=== PATIENT | female | born 1965 | race Caucasian/White ===

== ENCOUNTER → 2016-08-22 | Outpatient (CLI) | payer MEDICARE, OTHER | LOC: MMGSC 12:26 | PROVIDERS: ATTEND Family Medicine | DX: N39.0 Urinary tract infection, site not specified (principal) | CPT/HCPCS: 87086; 99213 ==

== ENCOUNTER → 2016-09-09 | Outpatient (CLI) | payer MEDICARE, OTHER ==
[2016-09-09 20:50] LABS: Basophils # (A) 0.1 k/uL (0-0.2); Basophils % (A) 1 %; CHCM 32.7; Eosinophils # (A) 0.2 k/uL (0-0.7); Eosinophils % (A) 2 %; HCT 44.7 % (34.0-46.0); HDW 2.41; HGB 14.9 gm/dL (11.4-16.0); Luc % (Auto) 2; Lymphocytes % (A) 25 %; MCH 32.9 pg (25.0-35.0); MCHC 33.4 g/dL (31.0-37.0); MCV 98.4 fL (80.0-100.0); Mean Platelet Volume 7.6; Monocytes # (A) 0.4 k/uL (0-1.0); Monocytes % (A) 4 %; Neutrophils # (A) 7.8 k/uL (1.3-7.7); Neutrophils % (A) 67 %; RBC 4.55 m/uL (3.80-5.40); RDW 13.6 % (11.5-15.5); WBC 11.6 k/uL (3.8-10.6)
[2016-09-09 21:48] LABS: ALT 20 U/L (9-52); AST 18 U/L (14-36); Alkaline Phosphatase 73 U/L (38-126); Anion Gap 11 mmol/L; Blood Urea Nitrogen 7 mg/dL (7-17); Calcium 9.9 mg/dL (8.4-10.2); Carbon Dioxide 25 mmol/L (22-30); Chloride 106 mmol/L (98-107); Cholesterol 223 mg/dL (<200); Glucose 96 mg/dL (74-99); HDL Cholesterol 95 mg/dL (40-60); Non-African American GFR(MDRD) >60 (>60 ml/min/1.73 sqM); Potassium 4.4 mmol/L (3.5-5.1); Sodium 142 mmol/L (137-145); Total Bilirubin 0.4 mg/dL (0.2-1.3); Triglycerides 169 mg/dL (<150)
== END ==
LOC: MMGSC 09:51
PROVIDERS: ATTEND Family Medicine
DX: E55.9 Vitamin D deficiency, unspecified (principal); R53.83 Other fatigue; E78.00 Pure hypercholesterolemia, unspecified
CPT/HCPCS: 36415; 80053; 80061; 82306; 84439; 84443; 85025

== ENCOUNTER → 2016-09-11 | Outpatient (CLI) | payer MEDICARE, OTHER | LOC: MMGSC 10:20 | PROVIDERS: ATTEND Family Medicine | DX: R23.8 Other skin changes (principal) | CPT/HCPCS: 87070; 87205 ==

== ENCOUNTER → 2016-11-11 | Outpatient (CLI) | payer MEDICARE, OTHER ==
[2016-11-11 19:41] LABS: Basophils # (A) 0.1 k/uL (0-0.2); Basophils % (A) 1 %; CH 33.2; Eosinophils # (A) 0.2 k/uL (0-0.7); Eosinophils % (A) 2 %; HCT 45.6 % (34.0-46.0); HDW 2.39; HGB 14.5 gm/dL (11.4-16.0); Luc # (Auto) 0.27; Luc % (Auto) 3; Lymphocytes % (A) 29 %; MCH 32.3 pg (25.0-35.0); MCHC 31.9 g/dL (31.0-37.0); MCV 101.2 fL (80.0-100.0); Macrocytosis Slight; Mean Platelet Volume 7.6; Monocytes # (A) 0.5 k/uL (0-1.0); Monocytes % (A) 5 %; Neutrophils # (A) 6.3 k/uL (1.3-7.7); Neutrophils % (A) 61 %; RBC 4.51 m/uL (3.80-5.40); RDW 14.3 % (11.5-15.5); WBC 10.3 k/uL (3.8-10.6); WBC (Perox) 10.58
[2016-11-11 20:13] LABS: ALT 29 U/L (9-52); AST 19 U/L (14-36); Alkaline Phosphatase 85 U/L (38-126); Anion Gap 10 mmol/L; Blood Urea Nitrogen 7 mg/dL (7-17); Calcium 9.3 mg/dL (8.4-10.2); Carbon Dioxide 25 mmol/L (22-30); Chloride 106 mmol/L (98-107); Glucose 105 mg/dL (74-99); Non-African American GFR(MDRD) >60 (>60 ml/min/1.73 sqM); Potassium 4.2 mmol/L (3.5-5.1); Sodium 141 mmol/L (137-145); Total Bilirubin 0.2 mg/dL (0.2-1.3); Total Protein 6.3 g/dL (6.3-8.2)
[2016-11-11 20:58] LABS: Vitamin B12 617 pg/mL (239-931)
== END ==
LOC: MMGSC 15:28
PROVIDERS: ATTEND Family Medicine
DX: E55.9 Vitamin D deficiency, unspecified (principal); R53.83 Other fatigue; T14.8 Other injury of unspecified body region
CPT/HCPCS: 36415; 80053; 82306; 82607; 85025

== ENCOUNTER → 2016-11-18 | Outpatient (CLI) | payer MEDICARE, OTHER ==
--- NOTE | 2016-11-18 19:42 | CONS ---
DATE OF SERVICE: 11/18/2016 PRIMARY CARE PHYSICIAN: Dr. Rodriguez REASON FOR CONSULTATION: Fatigue and sleepiness. [id number] female patient coming in due to concerns about poor sleep quality and possible obstructive sleep apnea, as this has been suspected by her primary care physician. The patient recently has been snoring, and she has been told by her daughter that she stops breathing. She has excessive fatigue and sleepiness. She occasionally grinds her teeth and has some restlessness in the lower extremities. She has multiple other medical problems and comorbidities, most significant of which is chronic pain involving the neck and the back. She is on a combination of medications for chronic pain, including narcotics, and medication for treatment of depression. She goes to bed around 11:00. She wakes up at 6:00 in the morning. She sleeps a good 7 to 8 hours but feels like she has slept only 3 to 4 hours. She has no problems falling asleep. She feels tired and fatigued and sleepy throughout the day. No history of motor vehicle accident because of feeling drowsy of sleepy. She has a history of alcoholism, and she is a recovering alcoholic. She quit drinking in 2015. She has no nocturnal heartburn. She has chronic pain, which could be potentially affecting her sleep quality. This involves pain in the neck and the back. She has recovered from hepatitis C. No history of any liver cirrhosis. No history of hypothyroidism. PAST MEDICAL HISTORY: 1. Lumbar spinal stenosis. 2. Chronic back pain. 3. Degenerative arthritis. 4. Chronic neck pain. 5. COPD. 6. Acid reflux. 7. History of alcoholism. 8. Hepatitis C. 9. History of depression/anxiety. Past surgical history includes: 1. Carpal tunnel release bilaterally. 2. Tonsillectomy. 3. Left arm surgery. 4. Hysterectomy. SOCIAL HISTORY: The patient is a smoker, one pack of cigarettes a day. She is an ex-alcoholic; clean since October 2015. No history of IV drugs. FAMILY HISTORY: Negative for sleep breathing disorder. REVIEW OF SYSTEMS: Twelve-point review of systems was done. Positive findings were all mentioned above in the history of present illness. BP is 115/76, pulse 79, respiration 16, temperature 98.1, saturation 96% on room air. Weight is 121.6. Height is 62 inches. [place] Score is 11. BMI is 22.1. Neck size is 13-1/2 inches. GENERAL APPEARANCE: Calm, comfortable. HEENT: Negative for JVD. No goiter or neck masses. LUNGS: Clear to auscultation. Heart sounds are regular rate and rhythm. Normal S1, S2. No S3, S4. No murmurs. ABDOMEN: Soft and non-tender. No organomegaly. EXTREMITIES: No edema. No cyanosis or clubbing at this point. IMPRESSION: 1. Chronic fatigue and sleepiness. Patient has a multitude of reasons to be sleepy and fatigued. She may have some underlying metabolic derangement. The possibility of chronic liver disease secondary to previous hepatitis C, possibilities of drug-induced fatigue and sleepiness, knowing that she is on a combination of medications that could affect the symptoms. Possibility of chronic fatigue related to depression. Other sleep disorders need to be ruled out as contributing factors. My overall suspicion for sleep apnea is low. 2. Spinal stenosis with chronic back pain. 3. Degenerative arthritis. 4. Neck pain. 5. Chronic obstructive pulmonary disease. 6. Acid reflux. 7. Alcoholism. 8. Hepatitic C, treated. 9. History of depression. PLAN: Will proceed with a screening polysomnogram. Will analyze this patient's sleep characteristics, quality. Will see if there is any sleep fragmentation or any form of sleep breathing disorder that would warrant any further treatment. Further recommendations are to follow, based on the results of the sleep study. LEI
== END | disposition home or self-care (01) ==
LOC: SLEEP 13:49
PROVIDERS: ATTEND Internal Medicine Critical Care Medicine
DX: R53.82 Chronic fatigue, unspecified (principal); M48.00 Spinal stenosis, site unspecified; M54.2 Cervicalgia; J44.9 Chronic obstructive pulmonary disease, unspecified; K21.9 Gastro-esophageal reflux disease without esophagitis; F10.20 Alcohol dependence, uncomplicated; M19.90 Unspecified osteoarthritis, unspecified site
CPT/HCPCS: 99211

== ENCOUNTER → 2017-01-06 | Outpatient (CLI) | payer MEDICARE, OTHER ==
--- NOTE | 2017-01-06 19:18 | PN ---
PROGRESS NOTE This is a 51-year-old female patient, who presented to me with chronic fatigue and sleepiness. As mentioned earlier the patient is on a higher dose of narcotics for chronic pain and she has multiple other medical problems, including depression, chronic liver disease secondary to hepatitis C that was effectively treated, degenerative arthritis, spinal stenosis, COPD and acid reflux. I performed a sleep study on this patient looking for any significant sleep breathing disorder. The patient had a full polysomnogram on 12/11/2016, and the patient was found to have a mild component of sleep apnea which was a combination of obstructive and central. The central components was probably related to narcotic intake. The patient's sleep efficiency was normal at 92%. No oxygen desaturations. Normal sleep architecture. No periodic limb movements were noted. I discussed the results with the patient at length today. She seems to be averaging about 6 hours of sleep a night and I think her sleepiness will improve as long as the patient may extend her sleep hours. Her depression is effectively treated with a combination of antidepressants. She is following up with Dr. Mars. No sleep paralysis. No hallucinations. No cataplexy. No significant periodic limb movements or any other complaints otherwise for now. PHYSICAL EXAMINATION: BP is 122/74, pulse 80, respirations 16, weight is 128, height is 5 feet 2 inches and saturation 98% on room air. GENERAL APPEARANCE: Calm comfortable. HEENT: Dentures. No goiter or neck masses. LUNGS: Clear to auscultation. HEART: Sounds regular rhythm. Normal S1, S2. No S3, S4. No murmurs. ABDOMEN: Soft, nontender. No organomegaly. EXTREMITIES: No edema. No cyanosis or clubbing. NEURO: Alert and oriented x3. No focal neurological deficits. PSYCH: Negative for acute depression for now. No significant anxiety. SKIN: Negative for any ulcers, wounds or cellulitis. SKELETAL: Exam is negative for any arthritis or joint deformities. IMPRESSION: 1. Chronic fatigue/sleepiness without evidence of any significant sleep breathing disorder. Sleep architecture was essentially within normal limits and there was no significant nocturnal oxygen desaturation. No restless legs syndrome noted. 2. Chronic depression under treatment. 3. Chronic pain. 4. Chronic narcotic intake for pain control. 5. History of substance abuse/cocaine. 6. History of alcoholism. 7. History of hepatitis C with chronic liver disease, currently hepatitis C is effectively treated. 8. Degenerative arthritis. 9. Acid reflux. 10.Chronic obstructive pulmonary disease. PLAN: 1. Discussed the findings with the patient. 2. No need for CPAP therapy. 3. Implement good sleep hygiene measures. 4. Increase the sleep hours an average of 7 half to 8 hours of sleep every night. 5. Follow up with Psychiatry and consider the addition of Provigil for symptom control in regards to her chronic hypersomnia. Suggest Provigil if this does not interact with her depression treatment. For that reason, the patient will be seeing Dr. Fitzpatrick and discussed this further. No need for CPAP therapy at this point. MMODL / IJN: [id number] /
== END | disposition home or self-care (01) ==
LOC: SLEEP 15:01
PROVIDERS: ATTEND Internal Medicine Critical Care Medicine
DX: R53.82 Chronic fatigue, unspecified (principal); F32.9 Major depressive disorder, single episode, unspecified; M19.90 Unspecified osteoarthritis, unspecified site; K21.9 Gastro-esophageal reflux disease without esophagitis; J44.9 Chronic obstructive pulmonary disease, unspecified; Z79.891 Long term (current) use of opiate analgesic

== ENCOUNTER → 2017-05-21 | Outpatient (CLI) | payer MEDICARE, OTHER ==
[2017-05-21 18:56] LABS: ALT 6 U/L (9-52); AST 19 U/L (14-36); Alkaline Phosphatase 81 U/L (38-126); Anion Gap 12 mmol/L; Blood Urea Nitrogen 11 mg/dL (7-17); Calcium 9.7 mg/dL (8.4-10.2); Carbon Dioxide 23 mmol/L (22-30); Chloride 103 mmol/L (98-107); Cholesterol 293 mg/dL (<200); Glucose 100 mg/dL (74-99); HDL Cholesterol 76 mg/dL (40-60); LDL Cholesterol,Calculated 194 mg/dL (0-99); Potassium 4.1 mmol/L (3.5-5.1); Sodium 138 mmol/L (137-145); Total Bilirubin 0.3 mg/dL (0.2-1.3); Triglycerides 116 mg/dL (<150)
== END | disposition home or self-care (01) ==
LOC: MMGSC 11:16
PROVIDERS: ATTEND Family Medicine
DX: Z00.00 Encounter for general adult medical examination without abnormal findings (principal); R53.83 Other fatigue; Z86.39 Personal history of other endocrine, nutritional and metabolic disease
CPT/HCPCS: 36415; 80053; 80061; 82306

== ENCOUNTER → 2017-06-09 | Outpatient (CLI) | payer MEDICARE, OTHER ==
[2017-06-09 19:33] LABS: Basophils # (A) 0.1 k/uL (0-0.2); Basophils % (A) 1 %; Eosinophils # (A) 0.1 k/uL (0-0.7); Eosinophils % (A) 1 %; HCT 39.3 % (34.0-46.0); HGB 12.9 gm/dL (11.4-16.0); Lymphocytes # (A) 1.9 k/uL (1.0-4.8); Lymphocytes % (A) 19 %; MCH 31.6 pg (25.0-35.0); MCHC 32.8 g/dL (31.0-37.0); MCV 96.4 fL (80.0-100.0); Mean Platelet Volume 7.8; Monocytes # (A) 0.5 k/uL (0-1.0); Monocytes % (A) 5 %; Neutrophils # (A) 7.2 k/uL (1.3-7.7); Neutrophils % (A) 73 %; Platelet Count 329 k/uL (150-450); RBC 4.08 m/uL (3.80-5.40); RDW 13.4 % (11.5-15.5); WBC 9.9 k/uL (3.8-10.6)
== END | disposition home or self-care (01) ==
LOC: MMGSC 15:50
PROVIDERS: ATTEND Family Medicine
DX: T14.8XXA Other injury of unspecified body region, initial encounter (principal)
CPT/HCPCS: 36415; 85025

== ENCOUNTER → 2018-11-30 | Outpatient (CLI) | payer MEDICARE, OTHER ==
--- NOTE | 2018-11-30 11:19 | US ---
EXAMINATION TYPE: US abdomen complete DATE OF EXAM: 11/30/2018 COMPARISON: NONE CLINICAL HISTORY: Abd Pain R10.9. Vomiting and diarrhea for 8 days, symptoms gone now, h/o polyp EXAM MEASUREMENTS: Liver Length: 15.9 cm Gallbladder Wall: 0.2 cm CBD: 0.6 cm Spleen: 8.8 cm Right Kidney: 8.9 x 4.2 x 4.7 cm Left Kidney: 10.5 x 4.4 x 6.0 cm Pancreas: wnl Liver: wnl Gallbladder: 0.3cm polyp seen on posterior wall Evidence for sonographic Baez's sign: no CBD: wnl Spleen: limited views due to bowel gas, rolled patient RLD for images Right Kidney: appears smaller in size but bowel gas was obscuring lower pole Left Kidney: wnl Upper IVC: wnl Abd Aorta: wnl The liver is homogenous. The intrahepatic portion of the IVC and proximal abdominal aorta are within normal limits. There is no evidence of cholelithiasis. Common bile duct is unremarkable. The visu alized portions of the pancreas are homogenous. The spleen is unremarkable. Kidneys are symmetric a nd free of hydronephrosis. No renal lesions are seen. IMPRESSION: 1. There is a 0.3 cm gallbladder polyp. No sonographic findings of acute cholecystitis. 2. Limited visualization of the spleen and right kidney due to overlying bowel gas.
== END | disposition home or self-care (01) ==
LOC: RADUSWWP 10:33
PROVIDERS: ATTEND Family Medicine
DX: K82.4 Cholesterolosis of gallbladder (principal); R14.3 Flatulence
CPT/HCPCS: 76700

== ENCOUNTER → 2019-05-03 | Outpatient (CLI) | payer MEDICARE, OTHER ==
--- NOTE | 2019-05-03 16:22 | US ---
EXAMINATION TYPE: US kidneys/renal and bladder DATE OF EXAM: 05/03/2019 COMPARISON: NONE CLINICAL HISTORY: R32 Urinary Incontinence. urinary incontinence, back pain EXAM MEASUREMENTS: Right Kidney: 9.5 x 4.3 x 3.9 cm Left Kidney: 11.0 x 5.8 x 4.4 cm Post Void Residual Volume: 16.3 mL Right Kidney: minimally dilated collecting system Left Kidney: no evidence of hydronephrosis Bladder: wnl Bilateral Jets seen: yes Normal Post Void Residual: yes No nephrolithiasis is seen. No masses are identified. The urinary bladder is anechoic. Bilateral u reteral jets are seen. IMPRESSION: Mild right-sided hydronephrosis. No left-sided hydronephrosis. No bilateral renal calculi .
== END | disposition home or self-care (01) ==
LOC: RADUSWWP 15:42
PROVIDERS: ATTEND Family Medicine
DX: N13.30 Unspecified hydronephrosis (principal)
CPT/HCPCS: 76770

== ENCOUNTER → 2019-05-17 | Outpatient (CLI) | payer MEDICARE, OTHER ==
--- NOTE | 2019-05-17 10:40 | CT ---
EXAMINATION TYPE: CT abdomen pelvis wo con DATE OF EXAM: 05/17/2019 COMPARISON: Ultrasound dated 05/03/2019 HISTORY: incontinence, UTI, abn US CT DLP: 283.3 mGycm Automated exposure control for dose reduction was used. TECHNIQUE: Helical acquisition of images was performed from the lung bases through the pelvis. FINDINGS: Lack of intravenous and oral contrast limit evaluation of both the hollow and solid viscera . LUNG BASES: No significant abnormality is appreciated. LIVER/GB: Unremarkable unenhanced morphology. No radiopaque calculi in the gallbladder. PANCREAS: No ductal dilatation or calcifications. No peripancreatic fat stranding. SPLEEN: No splenomegaly. ADRENALS: No nodularity or thickening. KIDNEYS: 3 mild right-sided hydronephrosis remains as there is blunting of the calyces, particularly in the upper pole such as on image 41. However no hydroureter is seen nor radiopaque distal obstructi ng calculus. No urinary bladder calculus is identified. No left-sided hydronephrosis. No nephrolithia sis of either kidney. FREE AIR: No free air is visualized ADENOPATHY: No right and 1 cm short axis lymph node in the abdomen or pelvis given limitation of lac k of intravenous contrast. OSSEOUS STRUCTURES: Schmorl's node is seen in the superior endplate of T12. Mild degenerative disc d isease at L5-S1. Vacuum disc phenomenon is seen. BOWEL: Appendix is retrocecal and within normal limits of size. No dilated large or small bowel. Mil d degree colonic fecal stasis. OTHER: Mild atherosclerosis of the abdominal aorta and its branches more moderate of the distal abdom inal aorta. IMPRESSION: 1. VERY MILD RIGHT-SIDED HYDRONEPHROSIS WITHOUT RADIOPAQUE DISTAL OBSTRUCTING CALCULUS. CONSIDERATION S ARE FOR RECENTLY PASSED CALCULUS, NONRADIOPAQUE OBSTRUCTING CALCULUS, LESS LIKELY UROEPITHELIAL LES ION, OR INCOMPLETE URETERAL STRICTURE. 2. NO RADIOPAQUE CALCULI OF EITHER KIDNEY. NO RADIO OPAQUE CALCULI IN THE URINARY BLADDER.
--- NOTE | 2019-05-18 10:38 | MM ---
Reason for exam: screening (asymptomatic). Last mammogram was performed 1 year and 8 months ago. History: Patient is postmenopausal. Took estrogen for 20 years. Physical Findings: A clinical breast exam by your physician is recommended on an annual basis and results should be correlated with mammographic findings. MG 3D Screening Mammo W/Cad Bilateral CC and MLO view(s) were taken. Prior study comparison: September 02, 2017, mammogram, performed at [facility]. June 26, 2016, mammogram, performed at [facility]. The breast tissue is heterogeneously dense. This may lower the sensitivity of mammography. Stable benign appearing bilateral calcifications. No suspicious abnormality. ASSESSMENT: Benign, BI-RAD 2 RECOMMENDATION: Routine screening mammogram of both breasts in 1 year. Manage on a clinical basis with regard to left nipple tenderness.
== END | disposition home or self-care (01) ==
LOC: RADCTMAIN 08:16
PROVIDERS: ATTEND Family Medicine
DX: Z12.31 Encounter for screening mammogram for malignant neoplasm of breast (principal); N13.30 Unspecified hydronephrosis
CPT/HCPCS: 74176; 77063; 77067

== ENCOUNTER → 2019-08-24 | Outpatient (CLI) | payer MEDICARE, OTHER ==
--- NOTE | 2019-08-24 15:23 | XR ---
EXAMINATION TYPE: XR chest 2V, XR ribs bilateral DATE OF EXAM: 08/24/2019 COMPARISON: NONE HISTORY: Shortness of breath and chest with bilateral rib pain. TECHNIQUE: Frontal and lateral views of the chest are obtained. A frontal and oblique images of the bilateral ribs. FINDINGS: There is no focal air space opacity, pleural effusion, or pneumothorax seen. The cardiac silhouette size is within normal limits. The osseous structures are intact. Dedicated images of bilateral ribs show no acute displaced fracture. Overlying soft tissue is unremar kable. IMPRESSION: 1. No acute cardiopulmonary process. 2. No acute displaced rib fractures are evident bilaterally.
== END | disposition home or self-care (01) ==
LOC: RADXRMAIN 14:43
PROVIDERS: ATTEND Family Medicine
DX: R06.02 Shortness of breath (principal); R07.81 Pleurodynia
CPT/HCPCS: 71046; 71110

== ENCOUNTER → 2019-09-07 | Outpatient (CLI) | payer MEDICARE, OTHER ==
--- NOTE | 2019-09-07 10:27 | MR ---
EXAMINATION TYPE: MR lumbar spine wo con DATE OF EXAM: 09/07/2019 COMPARISON: NONE HISTORY: Lower Back Pain into Sciatic, Down back of Thighs and Pain in bottom of Left Foot. TECHNIQUE: T1 and T2 axial and sagittal images of the lumbar spine are submitted. FINDINGS: There is no abnormal signal seen within the visualized spinal cord or paraspinal soft tissu es. Multilevel Schmorl's nodes are noted. At L1-2 there is no disc herniation or canal stenosis. No foraminal encroachment. At L2-3 there is no disc herniation or canal stenosis. No foraminal encroachment. At L3-4 there is no disc herniation or canal stenosis. No foraminal encroachment. At L4-5 there is degenerative disc disease with broad-based central and left paracentral disc herniat ion. Extending laterally with mild left foraminal encroachment. There is displacement of the thecal s ac. Facet arthropathy. At L5-S1 there is advanced degenerative disc disease with broad-based central disc herniation resulti ng in mild mass effect upon the thecal sac. There is encroachment upon the exiting nerve roots. Facet arthropathy and bilateral mild neural foraminal encroachment noted. Discogenic marrow changes seen. IMPRESSION: 1. Broad-based central, left paracentral disc herniation extending laterally to left with effacement of thecal sac at L4-L5 in left-sided mild foraminal encroachment. 2. Broad-based central disc herniation L5-S1 with mild mass effect upon the thecal sac and encroachme nt upon the exiting nerve roots. 3. Multilevel degenerative disc disease.
== END | disposition home or self-care (01) ==
LOC: RADMRIMAIN 09:25
PROVIDERS: ATTEND Nurse Practitioner Adult Health
DX: M51.26 Other intervertebral disc displacement, lumbar region (principal); M51.36 Other intervertebral disc degeneration, lumbar region
CPT/HCPCS: 72148

== ENCOUNTER → 2019-09-07 | Outpatient (CLI) | payer MEDICARE, OTHER ==
[2019-09-07 20:43] LABS: Urine Alcohol Negative (Negative); Urine Barbiturate Negative (Negative); Urine Cocaine Negative (Negative); Urine Methadone Negative (Negative); Urine Opiates Positive (Negative); Urine Phencyclidine Negative (Negative)
== END | disposition home or self-care (01) ==
LOC: LABWHC1 10:24
PROVIDERS: ATTEND Physician Assistant
DX: R05 Cough (principal); Z79.891 Long term (current) use of opiate analgesic
CPT/HCPCS: 36415; 80306; 86769

== ENCOUNTER → 2019-10-04 | Outpatient (CLI) | payer MEDICARE, OTHER | END | disposition home or self-care (01) | LOC: RADUSWWP 15:46 | PROVIDERS: ATTEND Urology | DX: Z53.9 Procedure and treatment not carried out, unspecified reason (principal) ==

== ENCOUNTER 2019-12-25 16:58 | Emergency (ER) | payer MEDICARE, OTHER ==
[2019-12-25 17:10] VITALS: BP 142/78; PULSE 84; RESP 16; TEMP 98.9
[2019-12-25] MEDS ORDERED: KETOROLAC 15 MG/ML 1 ML VIAL IM STA (17:30)
[2019-12-25] MEDS ORDERED: diazePAM 2 MG TAB PO STA (17:30)
--- NOTE | 2019-12-25 17:30 | ED ---
Back Pain HPI - General Chief Complaint: Back Pain/Injury Stated Complaint: Back pain Time Seen by Provider: 12/25/19 17:13 Source: patient Limitations: no limitations - History of Present Illness Initial Comments: Patient is a 54-year-old female presenting to the emergency Department with complaints of an increase in her chronic low back pain since this morning. Patient states she is already prescribed a few different medications for her chronic low back pain including [place], Mobic and a muscle relaxer. Patient states she takes these regularly. She does see a pain doctor at a neuro clinic in [place]. Patient denies any injuries or fall to trigger her pain. She denies any fever, chills, saddle paresthesias, difficulty with urination or defecation. She is requesting Toradol to help with her discomfort. She denies any urinary complaints. She is no further complaints at this time. Upon arrival to the ER, her vitals are stable. - Related Data Allergies Allergy/AdvReac Type Severity Reaction Status Date / Time cyclobenzaprine Allergy Anaphylaxis Verified 12/25/19 17:10 [From Flexeril] levofloxacin [From Levaquin] Allergy Anaphylaxis Verified 12/25/19 17:10 pregabalin [From Lyrica] Allergy Anaphylaxis Verified 12/25/19 17:10 Review of Systems ROS Statement: Those systems with pertinent positive or pertinent negative responses have been documented in the HPI. ROS Other: All systems not noted in ROS Statement are negative. Past Medical History Past Medical History: COPD Additional Past Medical History / Comment(s): chronic back pain History of Any Multi-Drug Resistant Organisms: None Reported Past Surgical History: Hysterectomy, Tonsillectomy, Tubal Ligation Additional Past Surgical History / Comment(s): carpal tunnel bilat, facial surgery, Past Psychological History: Depression, PTSD Smoking Status: Current every day smoker Past Alcohol Use History: None Reported Past Drug Use History: None Reported General Exam - General Exam Comments Initial Comments: GENERAL: Patient is well-developed and well-nourished. Patient is nontoxic and in no acute distress. HEAD: Atraumatic, normocephalic. EYES: Pupils equal round and reactive to light, extraocular movements intact, sclera anicteric, conjunctiva are normal. Eyelids were unremarkable. ENT: TMs normal, nares patent, oropharynx clear without exudates. Moist mucous membranes. NECK: Normal range of motion, supple without lymphadenopathy or JVD. LUNGS: Unlabored respirations. Breath sounds clear to auscultation bilaterally and equal. No wheezes rales or rhonchi. HEART: Regular rate and rhythm without murmurs, rubs or gallops. ABDOMEN: Soft, nontender, normoactive bowel sounds. No guarding, no rebound. No masses appreciated. : Deferred MUSCULOSKELETAL: Patient seems to have pain with palpation the entire lumbar area including bilateral lumbar paraspinals. She has normal junk range of motion, she is neurovascularly intact bilateral lower extremities. Normal extremities with adequate strength and normal range of motion, no pitting or edema. No clubbing or cyanosis. NEUROLOGICAL: Patient is alert and oriented x 3. Motor and sensory are also intact. Cranial nerves II through XII grossly intact. Symmetrical smile. Normal speech, normal gait. PSYCH: Normal mood, normal affect. SKIN: Warm, Dry, normal turgor, no rashes or lesions noted. Limitations: no limitations Course Vital Signs 12/25/19 17:06 Temperature 98.9 F Pulse Rate 84 Respiratory 16 Rate Blood Pressure 142/78 O2 Sat by Pulse 95 Oximetry Medical Decision Making - Medical Decision Making Patient is a 54-year-old female presenting for an acute flare of chronic low back pain since this morning. No falls or trauma. She has no acute neuro symptoms, no saddle paresthesia, no bowel or bladder incontinence. Patient is already in a pain contract and works with a neurologist. Discussed the patient and give her an injection of Toradol today to help with her discomfort as well as a low-dose of Valium to help relax. Patient is in agreement with this plan of care. She is stable for discharge. Patient states she'll follow-up with her neurologist next week. Return parameters were discussed the patient she verbalized understanding. Disposition Clinical Impression: Acute exacerbation of chronic low back pain Disposition: HOME SELF-CARE Condition: Stable Instructions (If sedation given, give patient instructions): Chronic Back Pain (DC) Additional Instructions: Please return to the Emergency Department if symptoms worsen or any other neri rns. Follow-up with neurologist as discussed. Recommended heat to the area, gentle stretching. Is patient prescribed a controlled substance at d/c from ED?: No Referrals: Solange Godinez MD [Primary Care Provider] - 1-2 days
== END 2019-12-25 17:55 | disposition home or self-care (01) ==
LOC: EC 16:58
DX: G89.29 Other chronic pain (principal); M54.5 Low back pain; F17.200 Nicotine dependence, unspecified, uncomplicated; Z88.1 Allergy status to other antibiotic agents; Z88.8 Allergy status to other drugs, medicaments and biological substances
CPT/HCPCS: 99283; 96372; J1885

== ENCOUNTER → 2020-01-02 | Outpatient (CLI) | payer MEDICARE, OTHER | END | disposition home or self-care (01) | LOC: LABWHC1 12:24 | PROVIDERS: ATTEND Family Medicine | DX: Z03.818 Encounter for observation for suspected exposure to other biological agents ruled out (principal) | CPT/HCPCS: U0003; C9803 ==

== ENCOUNTER → 2020-04-27 | Outpatient (CLI) | payer MEDICARE, OTHER ==
[2020-04-27 10:14] VITALS: BP 117/73; PULSE 88; RESP 18; TEMP 98.2
--- NOTE | 2020-04-27 10:48 | P.GSHP ---
History of Present Illness H&P Date: 04/27/20 Chief Complaint: bilateral nipple discharge Nivia is a 54-year-old white female seen in consultation for Dr. Valentino Rodriguez regarding bilateral nipple discharge. Her last bilateral mammogram was in May 2019 this was benign BIRADS 2. The nipple discharge for many years, it was milky in coloration. It was not spontaneous and only occurred when she had breast exams. However, it is not spontaneous and only occurs with breast examination. The color however his change from milky to green. [place] [address] which revealed hypocellular amorphous material with degenerated inflammatory cells. [place] [address] her prolactin level was 6. This is within the normal range. She has not felt any new lumps masses or nodules in her breast. She occasionally notes some shooting discomfort in her breast. It is greater on the right breast and in the left breast. It is sporadic she does not know what causes it. It lasts approximately 2 seconds. This occurs several times a week. Caffeine: Several coffees per day, several sodas per day Nicotine: Smokes 1 pack per day carl-bromine: Intermittently Family history: Mother: Lung cancer Maternal uncle: Lung cancer Maternal grandfather: Lung cancer Hormonal history: Menarche: 14 , 2 miscarriages, breast fed: no, age at first : 17 Menopause: Hysterectomy at 33, no cancer, endometriosis; took ovaries BCP: 10 years hormones: estradiol since hysterectomy Surgical history: Total hysterectomy Tubal ligation bilateral carpal tunnel left arm from fracture facial surgery/oral surgery c section tonsil cataract Medical History: COPD Hypersomnia/borderline narcolepsy Social History: nicotine: 1 /PPD alcohol: sober 4 1/2 years, was an alcoholic prior to this Drugs: Stopped using them for and a half years ago, used to use metamphetamines and cocaine - Constitutional Constitutional: Reports sweats - EENT Comment: cataract surgery bilateral Ears: deny: decreased hearing, tinnitus Ears, nose, mouth and throat: Denies headache, Denies sore throat - Breasts Breasts: bilateral: as per HPI - Cardiovascular Comment: panic attacks Cardiovascular: Denies chest pain, Denies shortness of breath - Respiratory Comment: COPD - Gastrointestinal Gastrointestinal: Denies abdominal pain, Denies diarrhea, Denies nausea, Denies vomiting - Genitourinary (Female) Comment: UTI in past Genitourinary: Reports stress incontinence, Denies dysuria, Denies hematuria - Menstruation Menstruation: Reports post hysterectomy - Musculoskeletal Comment: arthritis Musculoskeletal: Denies myalgias - Neurological Neurological: Reports numbness, Reports weakness - Psychiatric Comment: I'm personality disorder, posttraumatic stress disorder, recovering alcoholic Psychiatric: Reports anxiety, Reports depression - Endocrine Endocrine: Reports fatigue, Reports weight change - Hematologic/Lymphatic Hematologic/Lymphatic: Reports as per HPI - Allergic/Immunologic Allergic/Immunologic: Reports as per HPI Past Medical History Past Medical History: COPD Additional Past Medical History / Comment(s): chronic back pain History of Any Multi-Drug Resistant Organisms: None Reported Past Surgical History: Hysterectomy, Tonsillectomy, Tubal Ligation Additional Past Surgical History / Comment(s): carpal tunnel bilat, facial surgery, Past Psychological History: Depression, PTSD Smoking Status: Current every day smoker Past Alcohol Use History: None Reported Past Drug Use History: None Reported Medications and Allergies Home Medications Medication Instructions Recorded Confirmed Type ARIPiprazole [Abilify] 5 mg PO DAILY 04/27/20 04/27/20 History Albuterol Inhaler [Ventolin Hfa 2 puff INHALATION RT-TID 04/27/20 04/27/20 History Inhaler] Atorvastatin [Lipitor] 10 mg PO QAM 04/27/20 04/27/20 History Cholecalciferol (Vitamin D3) 125 mcg PO DAILY 04/27/20 04/27/20 History [Vitamin D3 (5000 Iu)] Escitalopram [Lexapro] 20 mg PO DAILY 04/27/20 04/27/20 History Estradiol [Estrace] 1 mg PO DAILY 04/27/20 04/27/20 History Fluticasone Nasal [place] [Flonase 2 spr EA NOSTRIL DAILY 04/27/20 04/27/20 History Nasal [place]] Fluticasone/Umeclidin/Vilanter 1 inhalation INHALATION DAILY 04/27/20 04/27/20 History [Trelegy Ellipta 100-62.5-25] Furosemide [Lasix] 20 mg PO DAILY 04/27/20 04/27/20 History HYDROcodone/APAP 10-325MG [[place] 1 tab PO Q4-6H PRN 04/27/20 04/27/20 History 10-325] Hydrocodone Bitartrate [Hysingla 40 mg PO Q24H 04/27/20 04/27/20 History ER] Meloxicam 15 mg PO DAILY 04/27/20 04/27/20 History Modafinil [Provigil] 200 mg PO BID 04/27/20 04/27/20 History Montelukast Sodium [Singulair] 10 mg PO QAM 04/27/20 04/27/20 History Pantoprazole [Protonix] 0 mg PO DAILY 04/27/20 04/27/20 History Potassium Chloride [Klor-Con 10] 10 meq PO DAILY 04/27/20 04/27/20 History Sulfamethox-Tmp 800-160Mg [Bactrim 1 tab PO Q12HR 04/27/20 04/27/20 History DS 800-160 mg] tiZANidine HCL [Zanaflex] 4 mg PO QAM 04/27/20 04/27/20 History Allergies Allergy/AdvReac Type Severity Reaction Status Date / Time cyclobenzaprine Allergy Anaphylaxis Verified 04/27/20 10:01 [From Flexeril] levofloxacin [From Levaquin] Allergy Anaphylaxis Verified 04/27/20 10:01 pregabalin [From Lyrica] Allergy Anaphylaxis Verified 04/27/20 10:01 Surgical - Exam Vital Signs Temp Pulse Resp BP Pulse Ox 98.2 F 88 18 117/73 97 04/27/20 10:10 04/27/20 10:10 04/27/20 10:10 04/27/20 10:10 04/27/20 10:10 BMI 26 - General moderate distress - Eyes normal ocular movement - ENT normal nares - Neck no masses, trachea midline - Respiratory normal expansion, normal respiratory effort, clear to auscultation - Cardiovascular Rhythm: regular Heart Sounds: normal: S1, S2 - Abdomen Abdomen: soft - Integumentary normal turgor - Musculoskeletal normal gait - Psychiatric oriented to time, oriented to person, oriented to place, speech is normal, memory intact Breast exam: BRA 34D inspection: Bilateral grade 3 ptosis Palpation: Right breast: Multi-positional exam fibrocystic changes with manipulation she does have some discharge which is guaiac negative appears to be fibrocystic in nature Right axilla: No adenopathy of concern left breast: Multi-positional exam fibrocystic changes with manipulation some discharge which is green in color and is guaiac negative Left axilla: No adenopathy of concern Results Last mammogram reviewed which was in May 2019 [place] work [place] [address] [place] [address] Assessment and Plan Assessment: Impression: 1. Chronic bilateral nipple discharge 2. Nicotine abuse, high caffeine intake, hormone use 3. COPD 4. Hypersomnia 5. Anxiety/depression 6. Posttraumatic stress disorder 7. Recovered alcoholic 8. Borderline personality disorder Plan: 1. Lifestyle modifications secondary to fibrocystic breast changes 2. Consider stopping the hormone replacement therapy 3. Bilateral mammogram with repeat examination following that 4. At this time there is nothing which would warrant interventional biopsy CC: Dr. Godinez We have discussed stopping the caffeine intake as well as the nicotine. We have also discussed possible stopping the hormones. She understands she will discuss stopping the hormones with her primary care doctor and she will attempt to do less so modifications. I will see her again after her mammogram to assure that there is nothing of concern on the mammogram. At this time I believe at discharge is most likely fibrocystic in nature and up into warning interventional biopsy. encounter 50 minutes, > 50% of time in planning and counselling
== END | disposition home or self-care (01) ==
LOC: WWCWWP 09:06
PROVIDERS: ATTEND Surgery
DX: Z53.9 Procedure and treatment not carried out, unspecified reason (principal)

== ENCOUNTER → 2020-05-21 | Outpatient (CLI) | payer MEDICARE, OTHER ==
--- NOTE | 2020-05-22 14:57 | MM ---
Reason for exam: clinical finding. Last mammogram was performed 1 year ago. History: Patient is postmenopausal. Took estrogen for 20 years. Physical Findings: Nurse did not find any significant physical abnormalities on exam. MG 3D Diag Mammo W/Cad BECKIE Bilateral CC and MLO view(s) were taken. LM, spot compression CC, and spot compression MLO view(s) were taken of the right breast. Prior study comparison: May 17, 2019, bilateral MG 3d screening mammo w/cad. September 02, 2017, mammogram, performed at [facility]. June 26, 2016, mammogram, performed at [facility]. Subareolar duct ectasia greater in the left breast. Lateral central right CC asymmetric density is more defined but has an appearance similar to priors on spot 3D. 6 month follow up recommended for green nipple discharge. These results were verbally communicated with the patient and result sheet given to the patient on 05/21/20. ASSESSMENT: Incomplete: need additional imaging evaluation, BI-RAD 0 RECOMMENDATION: Ultrasound of both breasts.
--- NOTE | 2020-05-22 15:01 | USB ---
Reason for exam: additional evaluation requested from abnormal screening. History: Patient is postmenopausal. Took estrogen for 20 years. US Breast Limited BILAT Right limited breast ultrasound including focal area of concern, retroareolar and axilla demonstrates a single ectatic duct seen at the posterior nipple. Left limited breast ultrasound including focal area of concern, retroareolar and axilla demonstrates a single ectatic duct seen at the posterior nipple. No abnormal filling defect seen. Bilateral retroareolar region scanned. These results were verbally communicated with the patient and result sheet given to the patient on 05/21/20. ASSESSMENT: Probably benign, BI-RAD 3 RECOMMENDATION: Follow-up diagnostic mammogram of the right breast in 6 months. Manage on a clinical basis with regard to benign green nipple discharge. Clear or spontaneous bloody discharge arising from a single pore on the nipple is regarded as suspicious discharge.
== END | disposition home or self-care (01) ==
LOC: RADMAMWWP 14:30
PROVIDERS: ATTEND Surgery
DX: N64.52 Nipple discharge (principal); R92.8 Other abnormal and inconclusive findings on diagnostic imaging of breast
CPT/HCPCS: 77066; 76642; G0279; 77062

== ENCOUNTER → 2020-05-31 | Outpatient (CLI) | payer MEDICARE, OTHER ==
[2020-05-31 10:57] VITALS: BP 121/84; PULSE 75; RESP 18; TEMP 97.9
--- NOTE | 2020-05-31 11:23 | P.PN ---
Subjective Progress Note Date: 05/31/20 Principal diagnosis: results of mammogram; complaining of abdominal pain at umbilicus Nivia is a 54-year-old white female seen in consultation for Dr. Godinez on 04-27-20 regarding bilateral nipple discharge. Her last bilateral mammogram prior to this was in May 2019 this was benign BIRADS 2. She has had a repeat bilateral mammogram and ultrasound on 05-21-20. This revealed subareolar duct ectasia greater in the left. Lateral central right cc asymmetric density more defined with an appearance similar to prior spots. Six-month follow-up was recommended for green nipple discharge. The patient was recommended to undergo ultrasound of both breasts. This was performed on the same date. Right breast: Limited breast ultrasound including focal area of concern, retroareolar and axilla demonstrated a single ectatic ducts seen at the posterior nipple Left limited breast ultrasound including focal area of concern, retroareolar and axilla demonstrated a single ectatic duct at the posterior nipple Abnormal filling defects seen. The assessment was probably benign BIRADS 3 Recommendation was for follow-up diagnostic mammogram of the right breast in 6 months. She continues to have bilateral green nipple discharge for many years, it was milky in coloration. It was not spontaneous and only occurred when she had breast exams. The color however his changed from milky to green. [place] [address] which revealed hypocellular amorphous material with degenerated inflammatory cells. [place] [address] her prolactin level was 6. This is within the normal range. She has not felt any new lumps masses or nodules in her breast. She occasionally notes some shooting discomfort in her breast. It is greater on the right breast and in the left breast. It is sporadic she does not know what causes it. It lasts approximately 2 seconds. This occurs several times a week. The patient does however complain today of pain at the umbilical area. She states that she does have a lifting at her job and noticed a pinching sensation and abdominal discomfort at this site. When I saw her on the last visit I had commented about a possible umbilical hernia. Caffeine: Several coffees per day, several sodas per day Nicotine: Smokes 1 pack per day carl-bromine: Intermittently Family history: Mother: Lung cancer Maternal uncle: Lung cancer Maternal grandfather: Lung cancer Hormonal history: Menarche: 14 , 2 miscarriages, breast fed: no, age at first : 17 Menopause: Hysterectomy at 33, no cancer, endometriosis; took ovaries BCP: 10 years hormones: estradiol since hysterectomy Surgical history: Total hysterectomy Tubal ligation bilateral carpal tunnel left arm from fracture facial surgery/oral surgery c section tonsil cataract Medical History: COPD Hypersomnia/borderline narcolepsy Social History: nicotine: 1 /PPD alcohol: sober 4 1/2 years, was an alcoholic prior to this Drugs: Stopped using them for and a half years ago, used to use metamphetamines and cocaine - Constitutional Constitutional: Reports sweats - EENT Comment: cataract surgery bilateral Ears: deny: decreased hearing, tinnitus Ears, nose, mouth and throat: Denies headache, Denies sore throat - Breasts Breasts: bilateral: as per HPI - Cardiovascular Comment: panic attacks Cardiovascular: Denies chest pain, Denies shortness of breath - Respiratory Comment: COPD - Gastrointestinal Gastrointestinal: Denies abdominal pain, Denies diarrhea, Denies nausea, Denies vomiting - Genitourinary (Female) Comment: UTI in past Genitourinary: Reports stress incontinence, Denies dysuria, Denies hematuria - Menstruation Menstruation: Reports post hysterectomy - Musculoskeletal Comment: arthritis Musculoskeletal: Denies myalgias - Neurological Neurological: Reports numbness, Reports weakness - Psychiatric Comment: I'm personality disorder, posttraumatic stress disorder, recovering alcoholic Psychiatric: Reports anxiety, Reports depression - Endocrine Endocrine: Reports fatigue, Reports weight change - Hematologic/Lymphatic Hematologic/Lymphatic: Reports as per HPI - Allergic/Immunologic Allergic/Immunologic: Reports as per HPI Objective - Vital Signs Vital signs: Vital Signs Temp 97.9 F 05/31/20 10:55 Pulse 75 05/31/20 10:55 Resp 18 05/31/20 10:55 BP 121/84 05/31/20 10:55 Pulse Ox 97 05/31/20 10:55 Intake & Output 05/30/20 05/31/20 05/31/20 18:59 06:59 18:59 Weight 65.317 kg - Exam BMI 29.5 - Constitutional General appearance: Present: average body habitus - EENT Eyes: Present: EOMI ENT: Present: hearing grossly normal - Respiratory Respiratory: bilateral: wheezing (at bases) - Cardiovascular Rhythm: regular Heart sounds: normal: S1, S2 - Gastrointestinal Gastrointestinal Comment(s): Umbilical hernia/small tender to palpation reducible at this time - Integumentary Integumentary: Present: normal turgor - Musculoskeletal Musculoskeletal: Present: gait normal - Psychiatric Psychiatric: Present: A&O x's 3, appropriate affect, intact judgment & insight - Additional findings Additional findings: breast exam: done on visit of 04-27-20; Assessment and Plan Assessment: Impression: COPD Hypersomnia/borderline narcolepsy bilateral nipple discharge/fibrocystic umbilical hernia Fibrocystic breast changes Bilateral mastodynia mild BIRADS 3, right breast mammogram to repeat in 6 months Plan: 1. Patient encouraged to stop smoking 2. COPD 3. Symptomatic umbilical hernia symptomatic since last visit 4. Fibrocystic breast changes 5. Mammogram and ultrasound findings reviewed, probably benign BIRADS 3 follow- up diagnostic mammogram of the right breast in 6 months CC: Dr. Godinez encounter 20 minutes time spent in reviewing medical records, physical examination, and counseling.
== END | disposition home or self-care (01) ==
LOC: WWCWWP 10:44
PROVIDERS: ATTEND Surgery
DX: N60.11 Diffuse cystic mastopathy of right breast (principal); N60.12 Diffuse cystic mastopathy of left breast; J44.9 Chronic obstructive pulmonary disease, unspecified; F17.210 Nicotine dependence, cigarettes, uncomplicated; K42.9 Umbilical hernia without obstruction or gangrene; G47.10 Hypersomnia, unspecified

== ENCOUNTER 2020-06-15 21:15 | Emergency (ER) | payer MEDICARE, OTHER ==
[2020-06-15 21:20] VITALS: TEMP 98
[2020-06-15] MEDS ORDERED: KETOROLAC 15 MG/ML 1 ML VIAL IM STA (21:28)
[2020-06-15 21:57] VITALS: BP 130/75; PULSE 74; RESP 18
--- NOTE | 2020-06-15 22:03 | XR ---
EXAMINATION TYPE: XR foot complete RT DATE OF EXAM: 06/15/2020 COMPARISON: NONE HISTORY: Foot pain TECHNIQUE: 3 views FINDINGS: Metatarsals are intact. I see no fracture nor dislocation. There are no erosions. IMPRESSION: Negative right foot exam.
--- NOTE | 2020-06-15 22:04 | XR ---
EXAMINATION TYPE: XR ankle complete RT DATE OF EXAM: 06/15/2020 COMPARISON: NONE HISTORY: Foot and ankle pain TECHNIQUE: 3 views FINDINGS: There is soft tissue swelling over the lateral malleolus. Ankle mortise is anatomic. Joint spaces are normal. IMPRESSION: Soft tissue swelling. No fracture seen.
--- NOTE | 2020-06-15 22:05 | XR ---
EXAMINATION TYPE: XR knee complete RT DATE OF EXAM: 06/15/2020 COMPARISON: NONE HISTORY: Knee pain TECHNIQUE: 3 views FINDINGS: I see no fracture nor dislocation. Joint spaces are normal. There is no sign of knee joint effusion. IMPRESSION: Negative right knee exam.
--- NOTE | 2020-06-15 22:36 | ED ---
Lower Extremity Injury HPI - General Chief Complaint: Extremity Injury, Lower Stated Complaint: RT ankle injury Time Seen by Provider: 06/15/20 21:22 Source: patient Mode of arrival: wheelchair Limitations: no limitations - History of Present Illness Initial Comments: 54-year-old female patient presents to the emergency department today for evaluation of right foot and ankle pain. Patient states approximately 30 minutes prior to arrival she was going down the stairs, missed a step, and twisted her foot. States she is having pain on the lateral aspect up into the ankle. States she feels it more when she walks. She states she did fall but denies hitting her head or losing consciousness. Denies any increased neck or back pain. Denies any other injuries. Denies any new numbness or tingling to the foot. States she has had a previous fracture to the foot. Patient does take multiple pain medications at home. - Related Data Home Medications Medication Instructions Recorded Confirmed ARIPiprazole [Abilify] 5 mg PO DAILY 04/27/20 05/31/20 Albuterol Inhaler [Ventolin Hfa 2 puff INHALATION RT-TID 04/27/20 05/31/20 Inhaler] Atorvastatin [Lipitor] 10 mg PO QAM 04/27/20 05/31/20 Cholecalciferol (Vitamin D3) 125 mcg PO DAILY 04/27/20 05/31/20 [Vitamin D3 (5000 Iu)] Escitalopram [Lexapro] 10 mg PO DAILY 04/27/20 05/31/20 Fluticasone Nasal [place] [Flonase 2 spr EA NOSTRIL DAILY 04/27/20 05/31/20 Nasal [place]] Fluticasone/Umeclidin/Vilanter 1 inhalation INHALATION DAILY 04/27/20 05/31/20 [Trelegy Ellipta 100-62.5-25] Furosemide [Lasix] 20 mg PO DAILY 04/27/20 05/31/20 HYDROcodone/APAP 10-325MG [[place] 1 tab PO Q4-6H PRN 04/27/20 05/31/20 10-325] Hydrocodone Bitartrate [Hysingla 40 mg PO Q24H 04/27/20 05/31/20 ER] Meloxicam 15 mg PO DAILY 04/27/20 05/31/20 Modafinil [Provigil] 200 mg PO BID 04/27/20 05/31/20 Montelukast Sodium [Singulair] 10 mg PO QAM 04/27/20 05/31/20 Pantoprazole [Protonix] 0 mg PO DAILY 04/27/20 05/31/20 Potassium Chloride [Klor-Con 10] 10 meq PO DAILY 04/27/20 05/31/20 tiZANidine HCL [Zanaflex] 4 mg PO QAM 04/27/20 05/31/20 Previous Rx's Medication Instructions Recorded Ketorolac [Toradol] 10 mg PO Q6HR #12 tab 06/15/20 Allergies Allergy/AdvReac Type Severity Reaction Status Date / Time cyclobenzaprine Allergy Anaphylaxis Verified 06/15/20 21:20 [From Flexeril] levofloxacin [From Levaquin] Allergy Anaphylaxis Verified 06/15/20 21:20 pregabalin [From Lyrica] Allergy Anaphylaxis Verified 06/15/20 21:20 Review of Systems ROS Statement: Those systems with pertinent positive or pertinent negative responses have been documented in the HPI. ROS Other: All systems not noted in ROS Statement are negative. Past Medical History Past Medical History: COPD Additional Past Medical History / Comment(s): chronic back pain History of Any Multi-Drug Resistant Organisms: None Reported Past Surgical History: Hysterectomy, Tonsillectomy, Tubal Ligation Additional Past Surgical History / Comment(s): carpal tunnel bilat, facial surgery, Past Psychological History: Depression, PTSD Smoking Status: Current every day smoker Past Alcohol Use History: None Reported Past Drug Use History: None Reported General Exam Limitations: no limitations General appearance: alert, in no apparent distress, other (This is a well- developed, well-nourished adult female patient in no acute distress. Vital signs upon presentation are temperature 98.2F, pulse 81, respirations 20, blood pressure 155/91, pulse ox 100% on room air.) Neck exam: Present: normal inspection, full ROM, other (Nontender, no step-off, no deformity to firm midline palpation of the posterior cervical spine. Full range of motion without pain or limitation.). Absent: tenderness, meningismus, lymphadenopathy Respiratory exam: Present: normal lung sounds bilaterally Cardiovascular Exam: Present: regular rate, normal rhythm, normal heart sounds. Absent: systolic murmur, diastolic murmur, rubs, gallop, clicks Extremities exam: Present: full ROM, tenderness (Over the proximal fifth metatarsal, over the right lateral malleolus.), normal capillary refill, other (Soft tissue swelling and ecchymosis noted over the right lateral foot and over the right lateral malleolus. Skin is otherwise pink, warm, dry. Cap refill less than 3 seconds. Pedal and posttibial pulses 2+.). Absent: normal inspection, pedal edema, joint swelling, calf tenderness Neurological exam: Present: alert, oriented X3, CN II-XII intact Psychiatric exam: Present: normal affect, normal mood Skin exam: Present: warm, dry, intact, normal color. Absent: rash Course Vital Signs 06/15/20 06/15/20 06/15/20 21:16 21:54 22:48 Temperature 98.0 F 98.0 F Pulse Rate 81 74 74 Respiratory 20 18 18 Rate Blood Pressure 155/91 130/75 130/75 O2 Sat by Pulse 100 100 100 Oximetry Medical Decision Making - Medical Decision Making 54-year-old female patient presents to the emergency department today for evaluation of right ankle and foot pain. Physical examination did reveal soft tissue swelling and ecchymosis to the right lateral foot and over the right lateral malleolus. She did have some mild proximal tib-fib tenderness. X-rays of the right foot and ankle as well as the knee were negative. She was placed in an Yadiel wrap and ankle stirrup splint. She is instructed to follow up the primary care physician for recheck in 1-2 days. Return parameters were discussed in detail. Patient verbalizes understanding and agrees with this plan. Case discussed with my attending Dr. Johnson. - Radiology Data Radiology results: report reviewed, image reviewed 3 views of the foot are obtained. Report reviewed in its entirety. Impression by Dr. Mayen shows negative right foot exam. 3 views of the right ankle are obtained. Report was reviewed in its entirety. Impression by Dr. Mayen shows soft tissue swelling. No fracture seen. 3 views of the right knee are obtained. Report reviewed in its entirety. Impression by Dr. Mayen shows negative right knee exam. Disposition Clinical Impression: Right ankle sprain, Right foot sprain Disposition: HOME SELF-CARE Condition: Good Instructions (If sedation given, give patient instructions): Ankle Sprain (ED), Foot Sprain (ED) Additional Instructions: Rest, ice, elevate the ankle. Utilize splint for comfort and support. Stop your meloxicam if you are taking toradol. Follow-up with the primary care physician for recheck in 1-2 days. Have repeat x-rays performed in 7-10 days if pain symptoms persist. Return to the emergency department for any new, worsening, or concerning symptoms. Prescriptions: Ketorolac [Toradol] 10 mg PO Q6HR #12 tab Is patient prescribed a controlled substance at d/c from ED?: No Referrals: Solange Godinez MD [Primary Care Provider] - 1-2 days Time of Disposition: 22:36
== END 2020-06-15 22:48 | disposition home or self-care (01) ==
LOC: EC 21:15
DX: S93.401A Sprain of unspecified ligament of right ankle, initial encounter (principal); S93.601A Unspecified sprain of right foot, initial encounter; F17.200 Nicotine dependence, unspecified, uncomplicated; F32.9 Major depressive disorder, single episode, unspecified; J44.9 Chronic obstructive pulmonary disease, unspecified; Z79.1 Long term (current) use of non-steroidal anti-inflammatories (NSAID); X50.1XXA Overexertion from prolonged static or awkward postures, initial encounter
CPT/HCPCS: 73562; 73610; 73630; 99283; 29515; 96372; J1885

== ENCOUNTER 2020-08-22 15:58 | Emergency (ER) | payer MEDICARE, OTHER ==
[2020-08-22 16:24] VITALS: RESP 18
[2020-08-22] MEDS ORDERED: HYDROcodone/APAP 10-325MG 1 EACH TAB PO ONE (16:51)
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
--- NOTE | 2020-08-22 17:31 | XR ---
Result: Clinical History: Pain. Comparison: None available. Technique: 3 views of the right shoulder. Findings: The bone mineralization is appropriate for age. No acute fracture or dislocation is seen. The joint spaces are grossly preserved. Impression: No acute osseous abnormality.
--- NOTE | 2020-08-22 17:35 | XR ---
Result: History: Pain. Comparison: None available. Technique: 4 views of the left wrist. Findings: There is an 8 mm well-corticated ossific density adjacent to the ulnar styloid process. The remaining visualized osseous structures are in anatomic alignment. The joint spaces are preserve d. Impression: Chronic appearing ulnar styloid process fracture.
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
[2020-08-22] MEDS ORDERED: KETOROLAC 15 MG/ML 1 ML VIAL IM STA (17:47)
--- NOTE | 2020-08-22 17:50 | XR ---
Result: History: Pain. Comparison: None available. Technique: A single frontal radiograph of the pelvis was reviewed. Findings: No acute fracture or dislocation is seen. The visualized osseous structures are in anatomic alignmen t. The visualized joint spaces are grossly preserved. Impression: No acute osseous abnormality.
[2020-08-22 18:13] VITALS: BP 127/79; PULSE 94; TEMP 98
== END 2020-08-22 18:12 | disposition home or self-care (01) ==
LOC: EC 15:58
DX: S43.401A Unspecified sprain of right shoulder joint, initial encounter (principal); G89.29 Other chronic pain; M54.2 Cervicalgia; M25.532 Pain in left wrist; M54.5 Low back pain; R10.2 Pelvic and perineal pain; J44.9 Chronic obstructive pulmonary disease, unspecified; F32.9 Major depressive disorder, single episode, unspecified; F17.200 Nicotine dependence, unspecified, uncomplicated; Z79.1 Long term (current) use of non-steroidal anti-inflammatories (NSAID); Z79.51 Long term (current) use of inhaled steroids; Y04.0XXA Assault by unarmed brawl or fight, initial encounter
CPT/HCPCS: 99284; 96372; 72050; 72170; 73030; 73110; J1885

== ENCOUNTER → 2021-02-06 | Outpatient (CLI) | payer MEDICARE, OTHER | END | disposition home or self-care (01) | LOC: LABWHC1 12:11 | PROVIDERS: ATTEND Family Medicine | DX: Z20.822 Contact with and (suspected) exposure to COVID-19 (principal) | CPT/HCPCS: U0003; C9803 ==

== ENCOUNTER 2021-02-28 10:38 | Emergency (ER) | payer MEDICARE, OTHER ==
[2021-02-28 13:11] VITALS: TEMP 99.1
--- NOTE | 2021-02-28 13:50 | ED ---
General Adult HPI - General Chief complaint: Upper Respiratory Infection Stated complaint: Cough/fever Time Seen by Provider: 02/28/21 13:13 Source: patient, RN notes reviewed Mode of arrival: ambulatory Limitations: no limitations - History of Present Illness Initial comments: This a 55-year-old female presents emergency Department with chief complaint of cough congestion fever bodyaches. Symptoms started last night. She states is very sudden onset of symptoms. She does admit that she has COPD, is a daily smoker. No chest pain she does complain of mild headache no neck pain or neck stiffness no GI symptoms. - Related Data Home Medications Medication Instructions Recorded Confirmed ARIPiprazole [Abilify] 5 mg PO DAILY 04/27/20 02/28/21 Albuterol Inhaler [Ventolin Hfa 2 puff INHALATION RT-QID PRN 04/27/20 02/28/21 Inhaler] Atorvastatin [Lipitor] 10 mg PO DAILY 04/27/20 02/28/21 Escitalopram [Lexapro] 20 mg PO DAILY 04/27/20 02/28/21 Fluticasone Nasal [place] [Flonase 2 spr EA NOSTRIL DAILY 04/27/20 02/28/21 Nasal [place]] Fluticasone/Umeclidin/Vilanter 1 puff INHALATION RT-DAILY 04/27/20 02/28/21 [[place] 100-62.5-25] Furosemide [Lasix] 20 mg PO DAILY 04/27/20 02/28/21 Hydrocodone Bitartrate [[place] 40 mg PO DAILY 04/27/20 02/28/21 ER] Meloxicam 15 mg PO DAILY 04/27/20 02/28/21 Montelukast Sodium [Singulair] 10 mg PO DAILY 04/27/20 02/28/21 Pantoprazole [Protonix] 40 mg PO DAILY 04/27/20 02/28/21 Potassium Chloride [Klor-Con 10] 10 meq PO DAILY 04/27/20 02/28/21 Cyclobenzaprine [Flexeril] 10 mg PO TID PRN 02/28/21 02/28/21 Dextroamphetamine/Amphetamine 10 mg PO BID@0800,1300 02/28/21 02/28/21 [Adderall] HYDROcodone/APAP 10-325MG [[place] 1 tab PO Q12H 02/28/21 02/28/21 10-325] Venlafaxine HCl [Effexor] 75 mg PO DAILY 02/28/21 02/28/21 modafiniL [Provigil] 200 mg PO BID 02/28/21 02/28/21 Previous Rx's Medication Instructions Recorded Clarithromycin [Biaxin] 500 mg PO Q12HR #20 tablet 02/28/21 predniSONE 50 mg PO DAILY #5 tab 02/28/21 Allergies Allergy/AdvReac Type Severity Reaction Status Date / Time cyclobenzaprine Allergy Anaphylaxis Verified 02/28/21 14:09 [From Flexeril] levofloxacin [From Levaquin] Allergy Anaphylaxis Verified 02/28/21 14:09 pregabalin [From Lyrica] Allergy Anaphylaxis Verified 02/28/21 14:09 Review of Systems ROS Statement: Those systems with pertinent positive or pertinent negative responses have been documented in the HPI. ROS Other: All systems not noted in ROS Statement are negative. Past Medical History Past Medical History: COPD Additional Past Medical History / Comment(s): chronic back pain History of Any Multi-Drug Resistant Organisms: None Reported Past Surgical History: Hysterectomy, Tonsillectomy, Tubal Ligation Additional Past Surgical History / Comment(s): carpal tunnel bilat, facial surgery, Past Psychological History: Depression, PTSD Smoking Status: Current every day smoker Past Alcohol Use History: None Reported Past Drug Use History: None Reported General Exam Limitations: no limitations General appearance: alert, in no apparent distress Head exam: Present: atraumatic, normocephalic, normal inspection Eye exam: Present: normal appearance, PERRL, EOMI. Absent: scleral icterus, conjunctival injection, periorbital swelling ENT exam: Present: normal exam, normal oropharynx, mucous membranes moist Neck exam: Present: normal inspection, full ROM. Absent: tenderness, meningismus, lymphadenopathy Respiratory exam: Present: normal lung sounds bilaterally. Absent: respiratory distress, wheezes, rales, rhonchi, stridor Cardiovascular Exam: Present: regular rate, normal rhythm, normal heart sounds. Absent: systolic murmur, diastolic murmur, rubs, gallop, clicks Course Vital Signs 02/28/21 13:09 Temperature 99.1 F Pulse Rate 96 Respiratory 20 Rate Blood Pressure 89/57 O2 Sat by Pulse 95 Oximetry Medical Decision Making - Medical Decision Making Patient's x-rays unremarkable, COVID-19 is negative. Patient was treated for [place] PD exacerbation, upper respiratory infection. Patient discharged in stable condition return parameters were discussed. - Lab Data Lab Results 02/28/21 Range/Units 14:16 Coronavirus (PCR) Not Detected (Not Detectd) Disposition Clinical Impression: Acute upper respiratory infection, COPD exacerbation Disposition: HOME SELF-CARE Condition: Stable Instructions (If sedation given, give patient instructions): Upper Respiratory Infection (ED) Additional Instructions: Please return to the Emergency Department if symptoms worsen or any other concerns. Prescriptions: Clarithromycin [Biaxin] 500 mg PO Q12HR #20 tablet predniSONE 50 mg PO DAILY #5 tab Is patient prescribed a controlled substance at d/c from ED?: No Referrals: Solange Godinez MD [Primary Care Provider] - 1-2 days Time of Disposition: 14:54
--- NOTE | 2021-02-28 14:37 | XR ---
EXAMINATION TYPE: XR chest 2V DATE OF EXAM: 02/28/2021 COMPARISON: Chest x-ray August 24, 2019 HISTORY: Fever and cough. TECHNIQUE: Frontal and lateral views of the chest are obtained. FINDINGS: There is no suspicious peripheral focal air space opacity, pleural effusion, or pneumothor ax seen. The cardiac silhouette size is stable and within normal limits. The osseous structures ar e intact. IMPRESSION: No acute pulmonary process. No significant change from prior.
[2021-02-28] MEDS ORDERED: cefTRIAXone 1,000 MG VIAL (IM USE) IM STA (14:54)
[2021-02-28] MEDS ORDERED: predniSONE 50 MG TAB PO STA (14:54)
[2021-02-28 15:34] VITALS: BP 97/74; PULSE 77; RESP 21
== END 2021-02-28 15:34 | disposition home or self-care (01) ==
LOC: EC 10:38
DX: J06.9 Acute upper respiratory infection, unspecified (principal); J44.1 Chronic obstructive pulmonary disease with (acute) exacerbation; F43.10 Post-traumatic stress disorder, unspecified; F32.A Depression, unspecified; F17.200 Nicotine dependence, unspecified, uncomplicated; Z79.51 Long term (current) use of inhaled steroids
CPT/HCPCS: 87635; 71046; 99283; 96372; J0696; J7512

== ENCOUNTER 2021-05-12 16:20 | Emergency (ER) | payer MEDICARE, OTHER ==
[2021-05-12 16:27] VITALS: TEMP 97.8
[2021-05-12] MEDS ORDERED: HYDROmorphone 1 MG/ML 1 ML SYRINGE IM STA (16:35)
--- NOTE | 2021-05-12 16:47 | ED ---
Fall HPI - General Chief Complaint: Fall Stated Complaint: Fall-R arm injury Time Seen by Provider: 05/12/21 16:27 Source: patient Mode of arrival: ambulatory - History of Present Illness Initial Comments: 55 year-old female patient presents for evaluation after having a fall. She states she jumped up onto her trunk to close it, when she landed her heels slipped off the curb and she fell backwards. She denies hitting her head or losing consciousness. Denies use of blood thinning medications. She does have obvious deformity to the right wrist. States her hand feels cold. Denies numbness or tingling. She reports worse neck and low back pain but does have chronic pain to these areas. She denies any hip or leg pain. Has taken two [place] 10 and [place] at home today. Patient denies any headache, chest pain, shortness of breath, dizziness, weakness, abdominal pain, nausea, vomiting, or difficulties with bowel movements or urination. - Related Data Home Medications Medication Instructions Recorded Confirmed ARIPiprazole [Abilify] 5 mg PO DAILY 04/27/20 02/28/21 Albuterol Inhaler [Ventolin Hfa 2 puff INHALATION RT-QID PRN 04/27/20 02/28/21 Inhaler] Atorvastatin [Lipitor] 10 mg PO DAILY 04/27/20 02/28/21 Escitalopram [Lexapro] 20 mg PO DAILY 04/27/20 02/28/21 Fluticasone Nasal [place] [Flonase 2 spr EA NOSTRIL DAILY 04/27/20 02/28/21 Nasal [place]] Fluticasone/Umeclidin/Vilanter 1 puff INHALATION RT-DAILY 04/27/20 02/28/21 [Trelegy Ellipta 100-62.5-25] Furosemide [Lasix] 20 mg PO DAILY 04/27/20 02/28/21 Hydrocodone Bitartrate [[place] 40 mg PO DAILY 04/27/20 02/28/21 ER] Meloxicam 15 mg PO DAILY 04/27/20 02/28/21 Montelukast Sodium [Singulair] 10 mg PO DAILY 04/27/20 02/28/21 Pantoprazole [Protonix] 40 mg PO DAILY 04/27/20 02/28/21 Potassium Chloride [Klor-Con 10] 10 meq PO DAILY 04/27/20 02/28/21 Cyclobenzaprine [Flexeril] 10 mg PO TID PRN 02/28/21 02/28/21 Dextroamphetamine/Amphetamine 10 mg PO BID@0800,1300 02/28/21 02/28/21 [Adderall] HYDROcodone/APAP 10-325MG [[place] 1 tab PO Q12H 02/28/21 02/28/21 10-325] Venlafaxine HCl [Effexor] 75 mg PO DAILY 02/28/21 02/28/21 modafiniL [Provigil] 200 mg PO BID 02/28/21 02/28/21 Previous Rx's Medication Instructions Recorded Clarithromycin [Biaxin] 500 mg PO Q12HR #20 tablet 02/28/21 predniSONE 50 mg PO DAILY #5 tab 02/28/21 Allergies Allergy/AdvReac Type Severity Reaction Status Date / Time cyclobenzaprine Allergy Anaphylaxis Verified 05/12/21 16:27 [From Flexeril] levofloxacin [From Levaquin] Allergy Anaphylaxis Verified 05/12/21 16:27 pregabalin [From Lyrica] Allergy Anaphylaxis Verified 05/12/21 16:27 Review of Systems ROS Statement: Those systems with pertinent positive or pertinent negative responses have been documented in the HPI. ROS Other: All systems not noted in ROS Statement are negative. Past Medical History Past Medical History: COPD Additional Past Medical History / Comment(s): chronic back pain History of Any Multi-Drug Resistant Organisms: None Reported Past Surgical History: Hysterectomy, Tonsillectomy, Tubal Ligation Additional Past Surgical History / Comment(s): carpal tunnel bilat, facial surgery, Past Psychological History: Depression, PTSD Smoking Status: Current every day smoker Past Alcohol Use History: None Reported Past Drug Use History: None Reported General Exam Limitations: no limitations General appearance: alert, in no apparent distress, other (This is a well- developed, well-nourished adult female in mild distress related to pain.) Neck exam: Present: normal inspection, tenderness (Posterior cervical spinal tenderness), full ROM, other (No bony step-off or deformity noted.). Absent: meningismus, lymphadenopathy Respiratory exam: Present: normal lung sounds bilaterally. Absent: respiratory distress, wheezes, rales, rhonchi, stridor Cardiovascular Exam: Present: regular rate, normal rhythm, normal heart sounds. Absent: systolic murmur, diastolic murmur, rubs, gallop, clicks GI/Abdominal exam: Present: soft, normal bowel sounds. Absent: distended, tenderness, guarding, rebound, rigid Extremities exam: Present: full ROM, tenderness (Distal radius and ulna. Obvious deformity. Skin is pink, warm, and dry. Radial pulse 2+. ), normal capillary refill. Absent: normal inspection, pedal edema, joint swelling, calf tenderness Neurological exam: Present: alert, oriented X3, CN II-XII intact Psychiatric exam: Present: normal affect, normal mood Skin exam: Present: warm, dry, intact, normal color. Absent: rash Course Vital Signs 05/12/21 16:22 Temperature 97.8 F Pulse Rate 89 Respiratory 20 Rate Blood Pressure 110/76 O2 Sat by Pulse 97 Oximetry Procedures - Orthopedic Fracture Reduction Fracture #1 Consent Obtained: written consent Side: right Fracture Reduction Location: radius Analgesia: hematoma block Technique: direct manipulation Post Reduction X-rays Demonstrate: acceptable reduction Post-Reduction Neuro Exam: intact, no change Post-Reduction Vascular Exam: intact, no change Splint Applied: Yes Patient Tolerated Procedure: well, no complications - Orthopedic Splinting/Casting Injury #1 Side: right Upper Extremity Injury Location: short arm, wrist Upper Extremity Immobilizer: sugar tong splint, Yadiel wrap, synthetic pre-padded splint Medical Decision Making - Medical Decision Making 55-year-old female patient presented to the emergency department today for evaluation of right wrist pain and deformity after a fall. She also reported neck pain and lower back pain. Physical examination did reveal obvious deformity to the wrist. She has some mild posterior cervical spinal tenderness with no bony step-off or deformity. Neurovascular status is intact to the arms and legs. She is neurologically intact and I had her head. X-rays of the wrist were obtained showed evidence for a impacted intra-articular fracture of the distal radius with some angulation. X-rays of the cervical spine and lumbar spine were negative. Did perform a hematoma block and reduction of the radius. Repeat x-ray showed good anatomic alignment. She is put in a splint. She was discharged follow up with fulfillment specialist for further evaluation as soon as possible. She is educated regarding rest, ice, elevation. She does have pain medication at home. Return parameters were discussed in detail. She verbalizes understanding and agrees with this plan. My attending is Dr. Zacarias. - Radiology Data Radiology results: report reviewed, image reviewed X-rays of the lumbar and cervical spine are obtained. Report was reviewed in its entirety. Impression by Dr. Moura shows no acute fracture dislocation seen in the cervical spine or lumbar. 3 views of the right wrist are obtained. Report was reviewed in its entirety. Impression by Dr. Mayen shows acute impacted intra-articular distal radius fracture. 2 views of the right wrist are obtained. Report was reviewed in its entirety. Impression by Dr. Mayen shows improved anatomic position of the fragments compared to initial exam. Disposition Clinical Impression: Fracture of right distal radius Disposition: HOME SELF-CARE Condition: Good Instructions (If sedation given, give patient instructions): Wrist Fracture in Adults (ED), Splint Care (ED) Additional Instructions: Rest, ice, elevate the wrist. Use sling for comfort and support. Do not remove splint in place to fulfillment specialist. Call the morning for an appointment. Follow-up with primary care physician as needed. Return for any new, worsening, or concerning symptoms. Is patient prescribed a controlled substance at d/c from ED?: No Referrals: Solange Godinez MD [Primary Care Provider] - 1-2 days Siobhan Irizarry DO [Doctor of Osteopathic Medicine] - 1-2 days Time of Disposition: 19:11
[2021-05-12] MEDS ORDERED: BUPIVACAINE (PF) 0.5% 30 ML VIAL SQ STA (17:50)
[2021-05-12] MEDS ORDERED: LIDOCAINE 1% INJ 10MG/ML (20 ML MDV) SQ ONE (17:50)
--- NOTE | 2021-05-12 18:50 | XR ---
EXAMINATION TYPE: XR lumbar spine 2 or 3V, XR cervical spine limited DATE OF EXAM: 05/12/2021 TECHNIQUE: Frontal, lateral, , swimmers, and open mouth view of the cervical spine are obtained. AP a nd lateral view of the lumbar spine were obtained. HISTORY: fall/pain COMPARISON: Cervical spine 08/22/2020. FINDINGS: Cervical spine: The cervical spine is visualized skull base through C5. There is mild reversal of the cervical lordosis centered at C5. The prevertebral soft tissues are within normal limits. The preden eddie space is not widened. Degenerative changes with anterior spurring, disc height loss and degenerat fredo endplate changes throughout the cervical spine. C1-C2 articulation is within normal limits on the open mouth view. The oblique images are within normal limits. Lumbar spine: Anteroposterior alignment are within normal limits. There is straightening of the lumbar lordosis. Th ere is degenerative disc height loss at L4-L5 and L5-S1. No compression fracture. IMPRESSION: No acute fracture or dislocation is seen in the cervical spine or lumbar.
[2021-05-12] MEDS ORDERED: HYDROmorphone 0.5 MG/0.5 ML SYRINGE IVP STA (18:53)
--- NOTE | 2021-05-12 19:02 | XR ---
EXAMINATION TYPE: XR wrist complete RT DATE OF EXAM: 05/12/2021 COMPARISON: NONE HISTORY: Fall. Deformity. TECHNIQUE: 3 views FINDINGS: There is impacted comminuted fracture distal radius. There is slight anterior angulation at the fracture site on the lateral view. There is no dislocation. The carpal bones are intact. Metacar pals appear intact. IMPRESSION: Acute impacted intra-articular distal radius fracture.
--- NOTE | 2021-05-12 19:06 | XR ---
EXAMINATION TYPE: XR wrist limited RT DATE OF EXAM: 05/12/2021 COMPARISON: NONE HISTORY: Post reduction TECHNIQUE: 2 views FINDINGS: Images through the cast show impacted transverse comminuted fracture distal radius. There i s no dislocation. There is improved anatomic position of the fragments compared to initial exam. IMPRESSION: No complicating process seen.
[2021-05-12 19:25] VITALS: BP 116/87; PULSE 87; RESP 16
== END 2021-05-12 19:24 | disposition home or self-care (01) ==
LOC: EC 16:20
DX: S52.501A Unspecified fracture of the lower end of right radius, initial encounter for closed fracture (principal); M54.2 Cervicalgia; J44.9 Chronic obstructive pulmonary disease, unspecified; F32.A Depression, unspecified; F17.200 Nicotine dependence, unspecified, uncomplicated; Z79.52 Long term (current) use of systemic steroids; Z79.1 Long term (current) use of non-steroidal anti-inflammatories (NSAID); Z79.51 Long term (current) use of inhaled steroids; Z79.899 Other long term (current) drug therapy; W01.0XXA Fall on same level from slipping, tripping and stumbling without subsequent striking against object, initial encounter
CPT/HCPCS: 72040; 72100; 73100; 73110; 25605; 99284; 96374; 96372; J2001; J1170 ×2

== ENCOUNTER 2021-05-14 20:57 | Emergency (ER) | payer MEDICARE, OTHER ==
[2021-05-14 21:17] VITALS: BP 141/82; PULSE 73; RESP 16; TEMP 97.9
--- NOTE | 2021-05-14 22:17 | ED ---
General Adult HPI - General Chief complaint: Recheck/Abnormal Lab/Rx Stated complaint: right arm pain from splint Time Seen by Provider: 05/14/21 21:48 Source: patient Mode of arrival: ambulatory Limitations: no limitations - History of Present Illness Initial comments: This 55-year-old female comes emergency Department with right distal radial fracture from 2 days ago. She states she saw orthopedics yesterday for this fracture, however they did not remove the splint and the splint has been causing her pain in her right elbow because a sharp piece is scraping on it. Patient states she is here to get a new splint put on. She denies any loss of sensation and states she has been wearing her shoulder sling to keep her arm at [address] Patient is not currently having any pain. Patient states she is following up with the hand surgeon tomorrow. Patient denies any chest pain, shortness of breath, abdominal pain, nausea, vomiting, change in vision, loss of sensation or increased pain of right arm. - Related Data Home Medications Medication Instructions Recorded Confirmed ARIPiprazole [Abilify] 5 mg PO DAILY 04/27/20 02/28/21 Albuterol Inhaler [Ventolin Hfa 2 puff INHALATION RT-QID PRN 04/27/20 02/28/21 Inhaler] Atorvastatin [Lipitor] 10 mg PO DAILY 04/27/20 02/28/21 Escitalopram [Lexapro] 20 mg PO DAILY 04/27/20 02/28/21 Fluticasone Nasal [place] [Flonase 2 spr EA NOSTRIL DAILY 04/27/20 02/28/21 Nasal [place]] Fluticasone/Umeclidin/Vilanter 1 puff INHALATION RT-DAILY 04/27/20 02/28/21 [Trelegy Ellipta 100-62.5-25] Furosemide [Lasix] 20 mg PO DAILY 04/27/20 02/28/21 Hydrocodone Bitartrate [Hysingla 40 mg PO DAILY 04/27/20 02/28/21 ER] Meloxicam 15 mg PO DAILY 04/27/20 02/28/21 Montelukast Sodium [Singulair] 10 mg PO DAILY 04/27/20 02/28/21 Pantoprazole [Protonix] 40 mg PO DAILY 04/27/20 02/28/21 Potassium Chloride [Klor-Con 10] 10 meq PO DAILY 04/27/20 02/28/21 Cyclobenzaprine [Flexeril] 10 mg PO TID PRN 02/28/21 02/28/21 Dextroamphetamine/Amphetamine 10 mg PO BID@0800,1300 02/28/21 02/28/21 [Adderall] HYDROcodone/APAP 10-325MG [[place] 1 tab PO Q12H 02/28/21 02/28/21 10-325] Venlafaxine HCl [Effexor] 75 mg PO DAILY 02/28/21 02/28/21 modafiniL [Provigil] 200 mg PO BID 02/28/21 02/28/21 Previous Rx's Medication Instructions Recorded Clarithromycin [Biaxin] 500 mg PO Q12HR #20 tablet 02/28/21 predniSONE 50 mg PO DAILY #5 tab 02/28/21 Allergies Allergy/AdvReac Type Severity Reaction Status Date / Time cyclobenzaprine Allergy Anaphylaxis Verified 05/14/21 21:17 [From Flexeril] levofloxacin [From Levaquin] Allergy Anaphylaxis Verified 05/14/21 21:17 pregabalin [From Lyrica] Allergy Anaphylaxis Verified 05/14/21 21:17 Review of Systems ROS Statement: Those systems with pertinent positive or pertinent negative responses have been documented in the HPI. ROS Other: All systems not noted in ROS Statement are negative. Past Medical History Past Medical History: COPD Additional Past Medical History / Comment(s): chronic back pain History of Any Multi-Drug Resistant Organisms: None Reported Past Surgical History: Hysterectomy, Tonsillectomy, Tubal Ligation Additional Past Surgical History / Comment(s): carpal tunnel bilat, facial surgery, Past Psychological History: Depression, PTSD Smoking Status: Current every day smoker Past Alcohol Use History: None Reported Past Drug Use History: None Reported General Exam Limitations: no limitations General appearance: alert, in no apparent distress Head exam: Present: atraumatic, normocephalic Neck exam: Present: full ROM Respiratory exam: Present: normal lung sounds bilaterally. Absent: respiratory distress, wheezes, rales, rhonchi, stridor Cardiovascular Exam: Present: regular rate, normal rhythm, normal heart sounds. Absent: systolic murmur, diastolic murmur, rubs, gallop, clicks GI/Abdominal exam: Present: soft, normal bowel sounds. Absent: distended, tenderness, guarding, rebound, rigid Extremities exam: Present: other (Right arm in sling. After sling and splint were removed, there was a small piece where the splint was crumbled on the and that was slightly sharp in nature scraping the patient. Pain was relieved after splint was removed. Patient with full sensation of all digits. No erythema or ecchymosis noted) Neurological exam: Present: alert, oriented X3, CN II-XII intact Psychiatric exam: Present: normal affect, normal mood Skin exam: Present: warm, dry, intact, normal color. Absent: rash Course Vital Signs 05/14/21 21:14 Temperature 97.9 F Pulse Rate 73 Respiratory 16 Rate Blood Pressure 141/82 O2 Sat by Pulse 96 Oximetry Procedures - Orthopedic Splinting/Casting Injury #1 Side: right Upper Extremity Injury Location: short arm Upper Extremity Immobilizer: sling/shoulder immobilizer, sugar tong splint, Yadiel wrap, synthetic pre-padded splint Additional Comments: Due to not having 3 x 35 splint, two 3 x 15 splints were sandwiched, forming a sugar tong splint. Yadiel bandage was placed back over top and patient was placed back into her shoulder sling. Medical Decision Making - Medical Decision Making This 55-year-old female presents emergency Department with right elbow pain due to splint placement. Patient was here 2 days ago and received a sugar tongue splint to her right forearm due to a distal radial fracture. Two 3 x 15 splints, forming a sandwich/sugar tong splint was placed over the right forearm due to not having any 3 x 35 splints here. Yadiel bandage was placed over top. She was able to wiggle fingers and had full sensation and all digits. Patient was then placed back into her shoulder sling. Patient given Toradol injection for pain. Patient has appointment with an orthopedic hand surgeon tomorrow and states she will to 2 appointment. Strict return precautions were given. He verbally agreed to plan. Patient sent home in stable condition. Case discussed with my attending, . Disposition Clinical Impression: Distal radius fracture, right Disposition: HOME SELF-CARE Condition: Stable Instructions (If sedation given, give patient instructions): Wrist Fracture in Adults (ED), Splint Care (ED) Additional Instructions: Please follow up with the orthopedic hand surgeon at your appointment tomorrow. Return to the emergency department with any concerning, new, worsening symptoms. Is patient prescribed a controlled substance at d/c from ED?: No Referrals: Solange Godinez MD [Primary Care Provider] - 1-2 days Decision Time: 22:55
[2021-05-14] MEDS ORDERED: KETOROLAC 15 MG/ML 1 ML VIAL IM STA (22:52)
== END 2021-05-14 23:13 | disposition home or self-care (01) ==
LOC: EC 20:57
DX: S52.501A Unspecified fracture of the lower end of right radius, initial encounter for closed fracture (principal); J44.9 Chronic obstructive pulmonary disease, unspecified; F32.A Depression, unspecified; F17.200 Nicotine dependence, unspecified, uncomplicated; Z79.51 Long term (current) use of inhaled steroids; Z79.52 Long term (current) use of systemic steroids; Z79.899 Other long term (current) drug therapy; X58.XXXA Exposure to other specified factors, initial encounter
CPT/HCPCS: 29125; 99283; J1885

== ENCOUNTER 2022-02-19 11:44 | Emergency (ER) | payer MEDICARE, OTHER ==
[2022-02-19 12:11] VITALS: RESP 18
[2022-02-19] MEDS ORDERED: KETOROLAC 15 MG/ML 1 ML VIAL IM STA (12:40)
--- NOTE | 2022-02-19 12:45 | ED ---
General Adult HPI - General Chief complaint: Recheck/Abnormal Lab/Rx Stated complaint: chronic pain Time Seen by Provider: 02/19/22 12:20 Source: patient, RN notes reviewed, old records reviewed Mode of arrival: ambulatory Limitations: no limitations - History of Present Illness Initial comments: This is a 56-year-old female presents emergency pertinent stating she has chronic low back pain and she sees a pain specialist for this. Patient states she woke up this morning the pain was worse than normal so she comes into the emergency department requesting a shot of Toradol. Patient states she has had this happen multiple times in the past and usually a shot of Toradol helps her. Patient denies any new symptoms. Patient states the same pain just a little bit worse per patient denies any numbness weakness. Patient denies any radiation of the legs. Patient denies any urinary retention or urinary incontinence. Patient denies any recent injury. Patient denies any other areas of pain. - Related Data Home Medications Medication Instructions Recorded Confirmed ARIPiprazole [Abilify] 5 mg PO DAILY 04/27/20 02/28/21 Albuterol Inhaler [Ventolin Hfa 2 puff INHALATION RT-QID PRN 04/27/20 02/28/21 Inhaler] Atorvastatin [Lipitor] 10 mg PO DAILY 04/27/20 02/28/21 Escitalopram [Lexapro] 20 mg PO DAILY 04/27/20 02/28/21 Fluticasone Nasal [place] [Flonase 2 spr EA NOSTRIL DAILY 04/27/20 02/28/21 Nasal [place]] Fluticasone/Umeclidin/Vilanter 1 puff INHALATION RT-DAILY 04/27/20 02/28/21 [Trelegy Ellipta 100-62.5-25] Furosemide [Lasix] 20 mg PO DAILY 04/27/20 02/28/21 HYDROcodone bitartrate [Hysingla 40 mg PO DAILY 04/27/20 02/28/21 ER] Meloxicam 15 mg PO DAILY 04/27/20 02/28/21 Montelukast Sodium [Singulair] 10 mg PO DAILY 04/27/20 02/28/21 Pantoprazole [Protonix] 40 mg PO DAILY 04/27/20 02/28/21 Potassium Chloride [Klor-Con 10] 10 meq PO DAILY 04/27/20 02/28/21 Cyclobenzaprine [Flexeril] 10 mg PO TID PRN 02/28/21 02/28/21 Dextroamphetamine/Amphetamine 10 mg PO BID@0800,1300 02/28/21 02/28/21 [Adderall] HYDROcodone/APAP 10-325MG [[place] 1 tab PO Q12H 02/28/21 02/28/21 10-325] Venlafaxine HCl [Effexor] 75 mg PO DAILY 02/28/21 02/28/21 modafiniL [Provigil] 200 mg PO BID 02/28/21 02/28/21 Previous Rx's Medication Instructions Recorded Clarithromycin [Biaxin] 500 mg PO Q12HR #20 tablet 02/28/21 predniSONE 50 mg PO DAILY #5 tab 02/28/21 Ketorolac [Toradol] 10 mg PO Q6HR #15 tab 02/19/22 Allergies Allergy/AdvReac Type Severity Reaction Status Date / Time cyclobenzaprine Allergy Anaphylaxis Verified 02/19/22 12:11 [From Flexeril] levofloxacin [From Levaquin] Allergy Anaphylaxis Verified 02/19/22 12:11 pregabalin [From Lyrica] Allergy Anaphylaxis Verified 02/19/22 12:11 Review of Systems ROS Statement: Those systems with pertinent positive or pertinent negative responses have been documented in the HPI. ROS Other: All systems not noted in ROS Statement are negative. Past Medical History Past Medical History: COPD Additional Past Medical History / Comment(s): chronic back pain History of Any Multi-Drug Resistant Organisms: None Reported Past Surgical History: Hysterectomy, Tonsillectomy, Tubal Ligation Additional Past Surgical History / Comment(s): spinal tap, carpal tunnel bilat, facial surgery, Past Psychological History: Depression, PTSD Smoking Status: Current every day smoker Past Alcohol Use History: None Reported Past Drug Use History: None Reported General Exam - General Exam Comments Initial Comments: GENERAL: Patient is well-developed and well-nourished. Patient is nontoxic and well- hydrated and is in mild distress. ENT: Neck is soft and supple. No significant lymphadenopathy is noted. Oropharynx is clear. Moist mucous membranes. Neck has full range of motion without eliciting any pain. EYES: The sclera were anicteric and conjunctiva were pink and moist. Extraocular movements were intact and pupils were equal round and reactive to light. Eyelids were unremarkable. SKIN: Skin is clear with no lesions or rashes and otherwise unremarkable. NEUROLOGIC: Patient is alert and oriented x3. Cranial nerves II through XII are grossly intact. Motor and sensory are also intact. Normal speech, volume and content. Symmetrical smile. MUSCULOSKELETAL: Normal extremities with adequate strength and full range of motion. Patient has some tenderness in the SI joint area which she states is chronic. Patient had a normal straight leg test is 60 bilaterally. LYMPHATICS: No significant lymphadenopathy is noted PSYCHIATRIC: Normal psychiatric evaluation. Limitations: no limitations Course Vital Signs 02/19/22 12:08 Temperature 97.8 F Pulse Rate 61 Respiratory 18 Rate Blood Pressure 154/92 O2 Sat by Pulse 95 Oximetry Medical Decision Making - Medical Decision Making Patient received a shot of Toradol in the emergency department. Disposition Clinical Impression: Chronic lower back pain Disposition: HOME SELF-CARE Condition: Good Instructions (If sedation given, give patient instructions): Chronic Back Pain (DC) Additional Instructions: Patient should not take any other anti-inflammatories while she is on Toradol. Prescriptions: Ketorolac [Toradol] 10 mg PO Q6HR #15 tab Is patient prescribed a controlled substance at d/c from ED?: No Referrals: Solange Godinez MD [Primary Care Provider] - 1-2 days Time of Disposition: 12:44
[2022-02-19 13:21] VITALS: BP 141/89; PULSE 63; TEMP 97.7
== END 2022-02-19 13:07 | disposition home or self-care (01) ==
LOC: EC 11:44
DX: M54.50 Low back pain, unspecified (principal); J44.9 Chronic obstructive pulmonary disease, unspecified; F32.A Depression, unspecified; F17.200 Nicotine dependence, unspecified, uncomplicated; Z79.84 Long term (current) use of oral hypoglycemic drugs; Z79.51 Long term (current) use of inhaled steroids; Z79.899 Other long term (current) drug therapy
CPT/HCPCS: 99283; 96372; J1885

== ENCOUNTER → 2022-03-24 | Outpatient (CLI) | payer MEDICARE, OTHER ==
--- NOTE | 2022-03-24 10:14 | CT ---
EXAMINATION TYPE: CT chest wo con DATE OF EXAM: 03/24/2022 COMPARISON: None HISTORY: Recent sarcoidosis diagnosis. CT DLP: 287.6 mGycm, Automated exposure control for dose reduction was used. CONTRAST: Performed injected with 0 mL of Isovue 300. TECHNIQUE: Axial images were obtained at 5 mm thick sections. Reconstructed images are reviewed on [employer] computer in the coronal plane. FINDINGS: Portion of the thyroid visualized is normal. No suspicious lung nodules or focal infiltrates are present. Mild emphysematous changes are present. No enlarged mediastinal or hilar adenopathy is evident. Scattered small axillary lymph nodes are pr esent. There is The ascending aorta diameter at the level of the main pulmonary artery is 3.1 cm. Th e main pulmonary artery diameter at the bifurcation is 2.[address] sections are obtained through the upper abdomen. Abdomen is essentially unremarkable. IMPRESSIONS: 1. No acute intrathoracic abnormality
== END | disposition home or self-care (01) ==
LOC: RADCTMAIN 07:08
PROVIDERS: ATTEND Psychiatry & Neurology Neurology
DX: D86.9 Sarcoidosis, unspecified (principal); R59.1 Generalized enlarged lymph nodes
CPT/HCPCS: 71250

== ENCOUNTER 2022-07-16 19:29 | Emergency (ER) | payer MEDICARE, OTHER ==
[2022-07-16 20:24] VITALS: BP 165/90; PULSE 86; RESP 14; TEMP 98.2
--- NOTE | 2022-07-16 21:48 | ED ---
Fever HPI - General Chief Complaint: Fever Stated Complaint: FEVER Time Seen by Provider: 07/16/22 20:35 Source: patient, RN notes reviewed Mode of arrival: ambulatory Limitations: no limitations - History of Present Illness Initial Comments: 56-year-old female presents emergency Department chief complaint of a fever. Patient states she woke up with fever states that she cannot go to the office to her work was required because of her colon. Patient states she feels fine this time. She states she has not seen an shortness breath cough like symptoms. She states she had some mild body aches. Patient denies any other associated symptoms. - Related Data Home Medications Medication Instructions Recorded Confirmed ARIPiprazole [Abilify] 5 mg PO DAILY 04/27/20 02/28/21 Albuterol Inhaler [Ventolin Hfa 2 puff INHALATION RT-QID PRN 04/27/20 02/28/21 Inhaler] Atorvastatin [Lipitor] 10 mg PO DAILY 04/27/20 02/28/21 Escitalopram [Lexapro] 20 mg PO DAILY 04/27/20 02/28/21 Fluticasone Nasal [place] [Flonase 2 spr EA NOSTRIL DAILY 04/27/20 02/28/21 Nasal [place]] Fluticasone/Umeclidin/Vilanter 1 puff INHALATION RT-DAILY 04/27/20 02/28/21 [Trelegy Ellipta 100-62.5-25] Furosemide [Lasix] 20 mg PO DAILY 04/27/20 02/28/21 HYDROcodone bitartrate [Hysingla 40 mg PO DAILY 04/27/20 02/28/21 ER] Meloxicam 15 mg PO DAILY 04/27/20 02/28/21 Montelukast Sodium [Singulair] 10 mg PO DAILY 04/27/20 02/28/21 Pantoprazole [Protonix] 40 mg PO DAILY 04/27/20 02/28/21 Potassium Chloride [Klor-Con 10] 10 meq PO DAILY 04/27/20 02/28/21 Cyclobenzaprine [Flexeril] 10 mg PO TID PRN 02/28/21 02/28/21 Dextroamphetamine/Amphetamine 10 mg PO BID@0800,1300 02/28/21 02/28/21 [Adderall] HYDROcodone/APAP 10-325MG [[place] 1 tab PO Q12H 02/28/21 02/28/21 10-325] Venlafaxine HCl [Effexor] 75 mg PO DAILY 02/28/21 02/28/21 modafiniL [Provigil] 200 mg PO BID 02/28/21 02/28/21 Previous Rx's Medication Instructions Recorded Clarithromycin [Biaxin] 500 mg PO Q12HR #20 tablet 02/28/21 predniSONE 50 mg PO DAILY #5 tab 02/28/21 Ketorolac [Toradol] 10 mg PO Q6HR #15 tab 02/19/22 Allergies Allergy/AdvReac Type Severity Reaction Status Date / Time cyclobenzaprine Allergy Anaphylaxis Verified 02/19/22 12:11 [From Flexeril] levofloxacin [From Levaquin] Allergy Anaphylaxis Verified 02/19/22 12:11 pregabalin [From Lyrica] Allergy Anaphylaxis Verified 02/19/22 12:11 Review of Systems ROS Statement: Those systems with pertinent positive or pertinent negative responses have been documented in the HPI. ROS Other: All systems not noted in ROS Statement are negative. Past Medical History Past Medical History: COPD Additional Past Medical History / Comment(s): chronic back pain History of Any Multi-Drug Resistant Organisms: None Reported Past Surgical History: Hysterectomy, Tonsillectomy, Tubal Ligation Additional Past Surgical History / Comment(s): spinal tap, carpal tunnel bilat, facial surgery, Past Psychological History: Depression, PTSD Smoking Status: Current every day smoker Past Alcohol Use History: None Reported Past Drug Use History: None Reported General Exam Limitations: no limitations General appearance: alert, in no apparent distress Head exam: Present: atraumatic, normocephalic, normal inspection Eye exam: Present: normal appearance, PERRL, EOMI. Absent: scleral icterus, conjunctival injection, periorbital swelling Respiratory exam: Present: normal lung sounds bilaterally. Absent: respiratory distress, wheezes, rales, rhonchi, stridor Cardiovascular Exam: Present: regular rate, normal rhythm, normal heart sounds. Absent: systolic murmur, diastolic murmur, rubs, gallop, clicks Course Vital Signs 07/16/22 20:20 Temperature 98.2 F Pulse Rate 86 Respiratory 14 Rate Blood Pressure 165/90 O2 Sat by Pulse 99 Oximetry Medical Decision Making - Medical Decision Making Was pt. sent in by a medical professional or institution ([facility], [facility], urgent care, hospital, or [facility]...) When possible be specific @ -No Did you speak to anyone other than the patient for history (EMS, parent, family, police, friend...)? What history was obtained from this source @ -No Did you review nursing and triage notes (agree or disagree)? Why? @ -I reviewed and agree with nursing and triage notes Were old charts reviewed (outside hosp., previous admission, EMS record, old EKG, old radiological studies, urgent care reports/EKG's, [facility] records)? Report findings @ -No old charts were reviewed Differential Diagnosis (chest pain, altered mental status, abdominal pain women, abdominal pain men, vaginal bleeding, weakness, fever, dyspnea, syncope, headache, dizziness, GI bleed, back pain, seizure, CVA, palpatations, mental health, musculoskeletal)? @ -Covid RSV, influenza, viral infection EKG interpreted by me (3pts min.). @ -None X-rays interpreted by me (1pt min.). @ -None done CT interpreted by me (1pt min.). @ -None done U/S interpreted by me (1pt. min.). @ -None done What testing was considered but not performed or refused? (CT, X-rays, U/S, labs)? Why? @ -None What meds were considered but not given or refused? Why? @ -None Did you discuss the management of the patient with other professionals (professionals i.e. [facility], [facility], lab, RT, psych nurse, marriage and family social worker, senior marketing specialist, teacher, medical scientific officer, casework supervisor)? Give summary @ -No Was smoking cessation discussed for >3mins.? @ -No Was critical care preformed (if so, how long)? @ -No Were there social determinants of health that impacted care today? How? ([place] elessness, low income, unemployed, alcoholism, drug addiction, transportation, low edu. Level, literacy, decrease access to med. care, nursing home, rehab)? @ -No Was there de-escalation of care discussed even if they declined (Discuss DNR or withdrawal of care, Hospice)? DNR status @ -No What co-morbidities impacted this encounter? (DM, HTN, Smoking, COPD, CAD, Cancer, CVA, ARF, Chemo, Hep., AIDS, mental health diagnosis, sleep apnea, morbid obesity)? @ -None Was patient admitted / discharged? Hospital course, mention meds given and route, prescriptions, significant lab abnormalities, going to OR and other pertinent info. @ -Discharge patients cepheid is negative. Patient discharged stable condition. Undiagnosed new problem with uncertain prognosis? @ -No Drug Therapy requiring intensive monitoring for toxicity (Heparin, Nitro, Insulin, Cardizem)? @ -No Were any procedures done? @ -No Diagnosis/symptom? @ -Viral infection Acute, or Chronic, or Acute on Chronic? @ -Acute Uncomplicated (without systemic symptoms) or Complicated (systemic symptoms)? @ -Uncomplicated Side effects of treatment? @ -No Exacerbation, Progression, or Severe Exacerbation? @ -No Poses a threat to life or bodily function? How? (Chest pain, [place], [place], pneumonia, PE, COPD, DKA, ARF, appy, cholecystitis, CVA, Diverticulitis, Homicidal, Suicidal, threat to staff... and all critical care pts) @ -No - Lab Data Lab Results 07/16/22 Range/Units 20:26 Influenza Type A (PCR) Not Detected (Not Detectd) Influenza Type B (PCR) Not Detected (Not Detectd) RSV (PCR) Not Detected (Not Detectd) SARS-CoV-2 (PCR) Not Detected (Not Detectd) Disposition Clinical Impression: Viral infection Disposition: HOME SELF-CARE Condition: Stable Instructions (If sedation given, give patient instructions): Fever in Adults (ED) Additional Instructions: Please return to the Emergency Department if symptoms worsen or any other concerns. Is patient prescribed a controlled substance at d/c from ED?: No Referrals: Solange Godinez MD [Primary Care Provider] - 1-2 days Time of Disposition: 21:48
== END 2022-07-16 22:04 | disposition home or self-care (01) ==
LOC: EC 19:29
DX: B34.9 Viral infection, unspecified (principal); J44.9 Chronic obstructive pulmonary disease, unspecified; F32.A Depression, unspecified; F17.200 Nicotine dependence, unspecified, uncomplicated; Z88.1 Allergy status to other antibiotic agents; Z88.8 Allergy status to other drugs, medicaments and biological substances; Z79.51 Long term (current) use of inhaled steroids; Z79.899 Other long term (current) drug therapy; Z20.822 Contact with and (suspected) exposure to COVID-19
CPT/HCPCS: 87636; 99283

== ENCOUNTER → 2022-09-26 | Outpatient (CLI) | payer MEDICARE, OTHER | END | disposition home or self-care (01) | LOC: LABWHC1 14:05 | PROVIDERS: ATTEND Psychiatry & Neurology Neurology | DX: M54.12 Radiculopathy, cervical region (principal); G62.9 Polyneuropathy, unspecified; R90.82 White matter disease, unspecified ==

== ENCOUNTER 2022-11-01 14:29 | Emergency (ER) | payer MEDICARE, OTHER ==
[2022-11-01] MEDS ORDERED: dexAMETHasone 2 MG TAB PO STA (15:29)
--- NOTE | 2022-11-01 15:58 | XR ---
EXAMINATION TYPE: XR chest 2V DATE OF EXAM: 11/01/2022 3:52 PM COMPARISON: Chest radiographs from 02/28/2021 TECHNIQUE: XR chest 2V Frontal and lateral views of the chest. CLINICAL INDICATION:Female, 57 years old with history of cough; FINDINGS: Lungs/Pleura: There is no evidence of pleural effusion, focal consolidation, or pneumothorax. Pulmonary vascularity: Unremarkable. Heart/mediastinum: Cardiomediastinal silhouette is unremarkable. Musculoskeletal: No acute osseous pathology. IMPRESSION: No acute cardiopulmonary disease/process.
--- NOTE | 2022-11-01 17:03 | ED ---
General Adult HPI - General Chief complaint: Upper Respiratory Infection Stated complaint: Nausea, sore throat Time Seen by Provider: 11/01/22 15:11 Source: patient, RN notes reviewed, old records reviewed Mode of arrival: ambulatory Limitations: no limitations - History of Present Illness Initial comments: Patient is a 57-year-old female with past medical history remarkable for prior smoking, COPD, chronic back pain who presents emergency Department complaining of body aches, fevers or subjective, sore throat, intermittent nausea. Concerned she may have an infectious process. Presents for further evaluation at this time. Denies any emesis. Denies diarrhea. Denies abdominal pain. His no other acute complaints at this time. States she has been tobacco free for 10 years. Presents for further evaluation. - Related Data Home Medications Medication Instructions Recorded Confirmed ARIPiprazole [Abilify] 5 mg PO DAILY 04/27/20 02/28/21 Albuterol Inhaler [Ventolin Hfa 2 puff INHALATION RT-QID PRN 04/27/20 02/28/21 Inhaler] Atorvastatin [Lipitor] 10 mg PO DAILY 04/27/20 02/28/21 Escitalopram [Lexapro] 20 mg PO DAILY 04/27/20 02/28/21 Fluticasone Nasal [place] [Flonase 2 spr EA NOSTRIL DAILY 04/27/20 02/28/21 Nasal [place]] Fluticasone/Umeclidin/Vilanter 1 puff INHALATION RT-DAILY 04/27/20 02/28/21 [Trelegy Ellipta 100-62.5-25] Furosemide [Lasix] 20 mg PO DAILY 04/27/20 02/28/21 HYDROcodone bitartrate [Hysingla 40 mg PO DAILY 04/27/20 02/28/21 ER] Meloxicam 15 mg PO DAILY 04/27/20 02/28/21 Montelukast Sodium [Singulair] 10 mg PO DAILY 04/27/20 02/28/21 Pantoprazole [Protonix] 40 mg PO DAILY 04/27/20 02/28/21 Potassium Chloride [Klor-Con 10] 10 meq PO DAILY 04/27/20 02/28/21 Cyclobenzaprine [Flexeril] 10 mg PO TID PRN 02/28/21 02/28/21 Dextroamphetamine/Amphetamine 10 mg PO BID@0800,1300 02/28/21 02/28/21 [Adderall] HYDROcodone/APAP 10-325MG [[place] 1 tab PO Q12H 02/28/21 02/28/21 10-325] Venlafaxine HCl [Effexor] 75 mg PO DAILY 02/28/21 02/28/21 modafiniL [Provigil] 200 mg PO BID 02/28/21 02/28/21 Previous Rx's Medication Instructions Recorded Clarithromycin [Biaxin] 500 mg PO Q12HR #20 tablet 02/28/21 predniSONE 50 mg PO DAILY #5 tab 02/28/21 Ketorolac [Toradol] 10 mg PO Q6HR #15 tab 02/19/22 Albuterol Inhaler [Ventolin Hfa 2 puff INHALATION Q6H PRN #1 unit 11/01/22 Inhaler] Azithromycin [Zithromax] 250 mg PO DAILY 4 Days #4 tab 11/01/22 predniSONE [Deltasone] 40 mg PO DAILY 5 Days #10 tab 11/01/22 Allergies Allergy/AdvReac Type Severity Reaction Status Date / Time cyclobenzaprine Allergy Anaphylaxis Verified 11/01/22 14:54 [From Flexeril] levofloxacin [From Levaquin] Allergy Anaphylaxis Verified 11/01/22 14:54 pregabalin [From Lyrica] Allergy Anaphylaxis Verified 11/01/22 14:54 Review of Systems ROS Statement: Those systems with pertinent positive or pertinent negative responses have been documented in the HPI. Review of Systems: CONST: Denies fever EYES: Denies blurry vision ENT: Endorses nasal congestion, cough, sore throat C/V: Denies Chest pain RESP: Denies shortness of breath GI: Denies abdominal pain : Denies dysuria SKIN: Denies rash. MSK: Denies joint pain. NEURO: Denies headache ROS Other: All systems not noted in ROS Statement are negative. Past Medical History Past Medical History: COPD Additional Past Medical History / Comment(s): chronic back pain, neuropathy History of Any Multi-Drug Resistant Organisms: None Reported Past Surgical History: Hysterectomy, Tonsillectomy, Tubal Ligation Additional Past Surgical History / Comment(s): spinal tap, carpal tunnel bilat, facial surgery, Past Psychological History: Depression, PTSD Smoking Status: Current every day smoker Past Alcohol Use History: None Reported Past Drug Use History: None Reported General Exam - General Exam Comments Initial Comments: General: Appears in no acute distress. HEAD: Normal with no signs of head trauma. EYES: EOMI ENT: Hearing grossly intact. Erythematous oropharynx. RESPIRATORY: Clear breath sounds bilaterally. No wheezes, rales, or rhonchi. No hypoxia. No increased work of breathing. C/V: Regular rate and rhythm. S1 and S2 auscultated. Peripheral pulses 2+ intact throughout. ABD: Abd is soft, nontender, nondistended EXT: Normal range of motion, no obvious deformity SKIN: No rashes or lesions observed on exposed skin. NEURO: Alert and oriented 4. Limitations: no limitations Course Vital Signs 11/01/22 11/01/22 11/01/22 14:50 15:11 17:11 Temperature 99.1 F 98.4 F Pulse Rate 97 62 Respiratory 18 18 16 Rate Blood Pressure 132/75 130/81 O2 Sat by Pulse 97 Oximetry Medical Decision Making - Medical Decision Making Was pt. sent in by a medical professional or institution (, PA, GASTROENTEROLOGY NURSE, urgent care, hospital, or snf...) When possible be specific @ -No Did you speak to anyone other than the patient for history (EMS, parent, family, police, friend...)? What history was obtained from this source @ -No Did you review nursing and triage notes (agree or disagree)? Why? @ -I reviewed and agree with nursing and triage notes Were old charts reviewed (outside hosp., previous admission, EMS record, old EKG, old radiological studies, urgent care reports/EKG's, snf records)? Report findings @ -No old charts were reviewed Differential Diagnosis (chest pain, altered mental status, abdominal pain women, abdominal pain men, vaginal bleeding, weakness, fever, dyspnea, syncope, headache, dizziness, GI bleed, back pain, seizure, CVA, palpatations, mental health, musculoskeletal)? @ -URI, viral syndrome, COVID-19 infection, pneumonia. This list is not all- inclusive. EKG interpreted by me (3pts min.). @ -None done X-rays interpreted by me (1pt min.). @ -Chest x-ray reveals no obvious acute cardio pulmonary process. CT interpreted by me (1pt min.). @ -None done U/S interpreted by me (1pt. min.). @ -None done What testing was considered but not performed or refused? (CT, X-rays, U/S, labs)? Why? @ -None What meds were considered but not given or refused? Why? @ -None Did you discuss the management of the patient with other professionals (professionals i.e. DrDaniel, PA, GASTROENTEROLOGY NURSE, lab, RT, psych nurse, social work program coordinator, virtual assistant for advertisers, teacher, probation officer, gearcase assembler)? Give summary @ -No Was smoking cessation discussed for >3mins.? @ -No Was critical care preformed (if so, how long)? @ -No Were there social determinants of health that impacted care today? How? (Homelessness, low income, unemployed, alcoholism, drug addiction, transportation, low edu. Level, literacy, decrease access to med. care, [place] [facility], rehab)? @ -No Was there de-escalation of care discussed even if they declined (Discuss DNR or withdrawal of care, Hospice)? DNR status @ -No What co-morbidities impacted this encounter? (DM, HTN, Smoking, COPD, CAD, Cancer, CVA, ARF, Chemo, Hep., AIDS, mental health diagnosis, sleep apnea, morbid obesity)? @ -None Was patient admitted / discharged? Hospital course, mention meds given and route, prescriptions, significant lab abnormalities, going to OR and other pertinent info. @ -Based on the patient's presentation and physical exam, I'm concerned for upper respiratory infection for the patient. No obvious signs of COPD exacerbation. We will obtain viral swabs, strep throat swab, as well as chest x-ray. Patient was in agreement this plan. She'll be symptomatically treated with a dose of steroid. Likely will be discharged home on antibiotic. Viral swabs are within acceptable limits. Chest x-ray shows no evidence of acute infection. Infectious swabs are all negative. Discussed the results with the patient. I will discharge her home with an antibiotic for acute bronchitis as well as a short course of steroids at home. She also receive an albuterol inhaler. Patient was in agreement this plan. Strict return precautions discussed. Likely diagnosis is bronchitis. I will provide the patient with a prescription for albuterol inhaler, azithromycin, prednisone. I instructed the patient to follow up with their PCP in the next 1-3 days. I explained that the patient should return to the emergency department if they experience any worsening symptoms. Strict return precautions were discussed with the patient. The patient expressed understanding of these instructions. I answered all questions that the patient had. The patient was discharged home in good condition with their prescriptions and follow up information. Undiagnosed new problem with uncertain prognosis? @ -No Drug Therapy requiring intensive monitoring for toxicity (Heparin, Nitro, Insulin, Cardizem)? @ -No Were any procedures done? @ -No Diagnosis/symptom? @ -TracheoBronchitis Acute, or Chronic, or Acute on Chronic? @ -Acute Uncomplicated (without systemic symptoms) or Complicated (systemic symptoms)? @ -Complicated Side effects of treatment? @ -No Exacerbation, Progression, or Severe Exacerbation? @ -No Poses a threat to life or bodily function? How? (Chest pain, USA, CT, pneumonia, PE, COPD, DKA, ARF, appy, cholecystitis, CVA, Diverticulitis, Homicidal, Suicidal, threat to staff... and all critical care pts) @ -No - Lab Data Lab Results 11/01/22 11/01/22 Range/Units 15:34 15:34 Influenza Type A (PCR) Not Detected (Not Detectd) Influenza Type B (PCR) Not Detected (Not Detectd) RSV (PCR) Not Detected (Not Detectd) SARS-CoV-2 (PCR) Not Detected (Not Detectd) Group A Strep (PCR) NOT DETECTED (Not Detectd) Disposition Clinical Impression: Tracheobronchitis Disposition: HOME SELF-CARE Condition: Good Instructions (If sedation given, give patient instructions): Acute Bronchitis (ED) Prescriptions: predniSONE [Deltasone] 40 mg PO DAILY 5 Days #10 tab Albuterol Inhaler [Ventolin Hfa Inhaler] 2 puff INHALATION Q6H PRN #1 unit PRN Reason: Dyspnea Azithromycin [Zithromax] 250 mg PO DAILY 4 Days #4 tab Is patient prescribed a controlled substance at d/c from ED?: No Referrals: Solange Godinez MD [Primary Care Provider] - 1-2 days Time of Disposition: 17:00
[2022-11-01 17:12] VITALS: BP 130/81; PULSE 62; RESP 16; TEMP 98.4
[2022-11-01] MEDS ORDERED: AZITHROMYCIN 500 MG TAB PO STA (17:12)
== END 2022-11-01 17:51 | disposition home or self-care (01) ==
LOC: EC 14:29
DX: J40 Bronchitis, not specified as acute or chronic (principal); J44.9 Chronic obstructive pulmonary disease, unspecified; F32.A Depression, unspecified; F17.200 Nicotine dependence, unspecified, uncomplicated; Z79.1 Long term (current) use of non-steroidal anti-inflammatories (NSAID); Z79.899 Other long term (current) drug therapy; Z88.8 Allergy status to other drugs, medicaments and biological substances; Z88.1 Allergy status to other antibiotic agents; Z20.822 Contact with and (suspected) exposure to COVID-19
CPT/HCPCS: 87651; 87636; 71046; 99283; J8540

== ENCOUNTER → 2023-06-22 | Outpatient (CLI) | payer MEDICARE, OTHER ==
--- NOTE | 2023-06-22 16:15 | XR ---
EXAMINATION TYPE: XR Hip Bilateral and AP pelvis DATE OF EXAM: 06/22/2023 2:44 PM CLINICAL INDICATION:Female, 57 years old with history of M25.551,M54.12,[id number]; [facility] COMPARISON: 08/22/2020 TECHNIQUE: XR Hip Bilateral and AP pelvis; hip was examined in the frontal and lateral projections an d a AP pelvis. FINDINGS: No evidence for acute process, joint dislocation or significant soft tissue swelling. Osteo phyte formation of the superior acetabulum of the hip. IMPRESSION: 1. No evidence for acute process. 2. Mild hip osteoarthrosis.
== END | disposition home or self-care (01) ==
LOC: RADXRMAIN 14:28
PROVIDERS: ATTEND Physician Assistant Medical
DX: M16.0 Bilateral primary osteoarthritis of hip (principal); M54.12 Radiculopathy, cervical region; M54.50 Low back pain, unspecified
CPT/HCPCS: 73521

== ENCOUNTER 2023-07-24 15:51 | Observation (INO) | payer MEDICARE, OTHER ==
[2023-07-24 16:55] LABS: Basophils # (A) 0.1 k/uL (0-0.2); Basophils % (A) 1 %; Eosinophils # (A) 0.3 k/uL (0-0.7); Eosinophils % (A) 4 %; HCT 37.9 % (34.0-46.0); HGB 12.5 gm/dL (11.4-16.0); Lymphocytes # (A) 2.6 k/uL (1.0-4.8); Lymphocytes % (A) 37 %; MCH 30.9 pg (25.0-35.0); MCHC 33.1 g/dL (31.0-37.0); MCV 93.4 fL (80.0-100.0); Mean Platelet Volume 7.1; Monocytes # (A) 0.4 k/uL (0-1.0); Monocytes % (A) 6 %; Neutrophils # (A) 3.4 k/uL (1.3-7.7); Neutrophils % (A) 48 %; Platelet Count 286 k/uL (150-450); RBC 4.06 m/uL (3.80-5.40); RDW 12.7 % (11.5-15.5); WBC 7.1 k/uL (3.8-10.6)
--- NOTE | 2023-07-24 17:15 | CT ---
EXAMINATION TYPE: CODE STROKE: CT brain wo contr DATE OF EXAM: 07/24/2023 COMPARISON: None HISTORY: 57-year-old female neurologic deficit, acute, stroke suspected TECHNIQUE: Examination was done in axial plane without intravenous contrast. Coronal and sagittal r econstructions performed. CT DLP: 1144.9 mGycm Automated exposure control for dose reduction was used. FINDINGS: Some linear high density right temporal lobe appears to correspond to some choroid plexus calcificati on on sagittal series. Otherwise, there is no evidence of acute intracranial hemorrhage, acute ischemic changes, mass, mass -effect, or extra-axial fluid collection. There is no effacement of cerebral sulci or basal subarach noid cisterns. There is no hydrocephalus. There is no midline shift. Jacobsen-white matter distinction is preserved. Leftward nasal septal deviation. Trace mucosal thickening ethmoid air cells. Orbits and globes are in tact. Mastoid air cells are well pneumatized. IMPRESSION: Some linear high density right temporal lobe appears to correspond to some choroid plexus calcificati on on sagittal series. Otherwise, no acute intracranial abnormality seen.
--- NOTE | 2023-07-24 17:21 | CT ---
EXAMINATION TYPE: CT angio head neck DATE OF EXAM: 07/24/2023 COMPARISON: Brain same day HISTORY: 57-year-old female neurologic deficit, acute, stroke suspected TECHNIQUE: Contiguous axial scanning of the head and neck performed with IV Contrast, patient injecte d with 65cc mL of Isovue 370. Coronal/sagittal reconstructions performed. 3-D reconstructions generat ed on a dedicated independent workstation. CT DLP: 587.9 mGycm Automated exposure control for dose reduction was used. FINDINGS: NECK: Conventional branching anatomy. Dominant left vertebral artery with both vertebral arteries otherwise patent throughout their course. The right common carotid artery is patent. Atherosclerotic plaque and used to mild, just under 50% proximal right ICA stenosis. Remainder of the right ICA is patent. Left common and left internal carotid arteries are widely patent with mild atelectatic calcification at the left carotid bifurcation. Emphysematous changes in the visualized upper lungs. Moderate spondylotic change mid to lower cervical spine with reversal of the normal cervical lordosis . HEAD: The V4 segment right vertebral artery becomes even more hypoplastic. Otherwise, vertebral and basilar arteries are patent as is the remainder of the posterior circulation. The bilateral internal carotid arteries as well as the remainder of the anterior circulation is paten t. No aneurysmal change is seen. Dural venous sinuses are patent. IMPRESSION: NECK: 1. DOMINANT LEFT VERTEBRAL ARTERY. 2. Plaque resulting in mild, just under 50% proximal right ICA stenosis. 3. COPD in the visualized upper lungs. HEAD: 4. Again, dominant left vertebral artery. 5. Otherwise, no large vessel intracranial arterial occlusion, significant stenosis, or aneurysmal ch sagar is seen.
[2023-07-24 17:22] LABS: ALT 25 U/L (4-34); AST 32 U/L (14-36); African American GFR (CKD) >90 (>60 ml/min/1.73 sqM); Alkaline Phosphatase 88 U/L (38-126); Anion Gap 7 mmol/L; Blood Urea Nitrogen 10 mg/dL (7-17); Calcium 8.9 mg/dL (8.4-10.2); Carbon Dioxide 24 mmol/L (22-30); Chloride 105 mmol/L (98-107); Creatine Kinase 76 U/L (30-135); Glucose 101 mg/dL (74-99); Non-African American GFR(CKD) >90 (>60 ml/min/1.73 sqM); Sodium 136 mmol/L (137-145); Total Bilirubin 0.3 mg/dL (0.2-1.3); Total Protein 6.6 g/dL (6.3-8.2)
[2023-07-24 17:36] LABS: INR 0.9 (<1.2); Partial Thromboplastin Time 23.3 sec (22.0-30.0); Prothrombin Time 9.9 sec (10.0-12.5)
--- NOTE | 2023-07-24 17:36 | XR ---
EXAMINATION TYPE: XR chest 2V DATE OF EXAM: 07/24/2023 4:54 PM CLINICAL INDICATION:Female, 57 years old with history of altered mental status; [facility] COMPARISON: Chest radiographs from 11/01/2022 TECHNIQUE: XR chest 2V Frontal and lateral views of the chest. FINDINGS: Lungs/Pleura: There is no evidence of pleural effusion, focal consolidation, or pneumothorax. Pulmonary vascularity: Unremarkable. Heart/mediastinum: Cardiomediastinal silhouette is unremarkable. Musculoskeletal: No acute osseous pathology. IMPRESSION: No acute cardiopulmonary disease/process.
[2023-07-24 17:37] LABS: Potassium 3.8 mmol/L (3.5-5.1)
--- NOTE | 2023-07-24 18:25 | ED ---
Neuro HPI - General Chief Complaint: Neuro Symptoms/Deficit Stated Complaint: Stroke symptoms Time Seen by Provider: 07/24/23 16:00 Source: patient, EMS Mode of arrival: EMS Limitations: no limitations - History of Present Illness Is the patient presenting with stroke symptoms?: Yes Last Known Well Date: 07/24/23 Last Known Well Time: 15:00 Initial Comments: 57-year-old female with past medical history of TIA who presents emergency department with strokelike symptoms. States that she was at work around 3 PM when she had sudden onset of left-sided facial droop, left-sided facial paresthesias and left upper extremity numbness. Symptoms lasted for 10 minutes where they were significant. Patient arrives and continues to have numbness in her left face but states that the symptoms in her arm have resolved. She does take an aspirin daily. States that she has no residual deficits from her previous strokes. Patient denies any headaches or visual changes. No speech deficit. No other alleviating, precipitating or modifying factors - Related Data Home Medications: Home Medications Medication Instructions Recorded Confirmed ARIPiprazole [Abilify] 5 mg PO DAILY 04/27/20 07/24/23 Albuterol Inhaler [Ventolin Hfa 2 puff INHALATION RT-QID PRN 04/27/20 07/24/23 Inhaler] Furosemide [Lasix] 20 mg PO DAILY 04/27/20 07/24/23 Meloxicam 15 mg PO DAILY 04/27/20 07/24/23 Montelukast Sodium [Singulair] 10 mg PO DAILY 04/27/20 07/24/23 Pantoprazole [Protonix] 40 mg PO DAILY 04/27/20 07/24/23 Potassium Chloride [Klor-Con 10 ER] 10 meq PO DAILY 04/27/20 07/24/23 Cyclobenzaprine [Flexeril] 10 mg PO TID PRN 02/28/21 07/24/23 HYDROcodone/APAP 10-325MG [[place] 1 tab PO QID 02/28/21 07/24/23 10-325] Venlafaxine HCl [Effexor] 75 mg PO DAILY 02/28/21 07/24/23 modafiniL [Provigil] 200 mg PO BID 02/28/21 07/24/23 Aspirin EC [Ecotrin Low Dose] 81 mg PO DAILY 07/24/23 07/24/23 Cholecalciferol [Vitamin D3 (125 125 mcg PO DAILY 07/24/23 07/24/23 Mcg = 5000 Iu)] Dextroamphetamine/Amphetamine 20 mg PO BID 07/24/23 07/24/23 [Adderall] HYDROcodone bitartrate [Hysingla 60 mg PO DAILY 07/24/23 07/24/23 ER] Previous Rx's Medication Instructions Recorded Clopidogrel [Plavix] 75 mg PO DAILY #21 tab 07/25/23 Rosuvastatin [Crestor] 20 mg PO DAILY #60 tab 07/25/23 Allergies/Adverse Reactions: Allergies Allergy/AdvReac Type Severity Reaction Status Date / Time cyclobenzaprine Allergy Vomiting, Verified 07/24/23 19:57 [From Flexeril] but can take if she has to levofloxacin [From Levaquin] Allergy Anaphylaxis Verified 07/24/23 19:57 she thinks, but doesn't remember pregabalin [From Lyrica] Allergy "blacks Verified 07/24/23 19:57 out" black olives Allergy Anaphylaxis Uncoded 07/24/23 19:57 Review of Systems ROS Statement: Those systems with pertinent positive or pertinent negative responses have been documented in the HPI. ROS Other: All systems not noted in ROS Statement are negative. General Exam Limitations: no limitations General appearance: alert, in no apparent distress Head exam: Present: atraumatic, normocephalic, other (Patient has some facial droop noted to the left lower face. drooping normalizes when smiling) Eye exam: Present: normal appearance, PERRL, EOMI. Absent: scleral icterus, conjunctival injection, periorbital swelling ENT exam: Present: normal exam, mucous membranes moist Neck exam: Present: normal inspection. Absent: tenderness, meningismus, lymphadenopathy Respiratory exam: Present: normal lung sounds bilaterally. Absent: respiratory distress, wheezes, rales, rhonchi, stridor Cardiovascular Exam: Present: regular rate, normal rhythm, normal heart sounds. Absent: systolic murmur, diastolic murmur, rubs, gallop, clicks GI/Abdominal exam: Present: soft, normal bowel sounds. Absent: distended, t enderness, guarding, rebound, rigid Extremities exam: Present: normal inspection, full ROM, normal capillary refill. Absent: tenderness, pedal edema, joint swelling, calf tenderness Back exam: Present: normal inspection Neurological exam: Present: alert, oriented X3, CN II-XII intact Psychiatric exam: Present: normal affect, normal mood Skin exam: Present: warm, dry, intact, normal color. Absent: rash Stroke [facility] - Lab Data Result diagrams: 07/25/23 08:13 07/25/23 08:13 Lab Results 07/24/23 07/24/23 07/24/23 Range/Units 16:35 16:35 16:35 WBC 7.1 (3.8-10.6) k/uL RBC 4.06 (3.80-5.40) m/uL Hgb 12.5 (11.4-16.0) gm/dL Hct 37.9 (34.0-46.0) % MCV 93.4 (80.0-100.0) fL MCH 30.9 (25.0-35.0) pg MCHC 33.1 (31.0-37.0) g/dL RDW 12.7 (11.5-15.5) % Plt Count 286 (150-450) k/uL MPV 7.1 Neutrophils % 48 % Lymphocytes % 37 % Monocytes % 6 % Eosinophils % 4 % Basophils % 1 % Neutrophils # 3.4 (1.3-7.7) k/uL Lymphocytes # 2.6 (1.0-4.8) k/uL Monocytes # 0.4 (0-1.0) k/uL Eosinophils # 0.3 (0-0.7) k/uL Basophils # 0.1 (0-0.2) k/uL PT 9.9 L (10.0-12.5) sec INR 0.9 (<1.2) APTT 23.3 (22.0-30.0) sec Sodium 136 L (137-145) mmol/L Potassium 3.8 (3.5-5.1) mmol/L Chloride 105 (98-107) mmol/L Carbon Dioxide 24 (22-30) mmol/L Anion Gap 7 mmol/L BUN 10 (7-17) mg/dL Creatinine 0.45 L (0.52-1.04) mg/dL Est GFR (CKD-EPI)AfAm >90 (>60 ml/min/1.73 sqM) Est GFR (CKD-EPI)NonAf >90 (>60 ml/min/1.73 sqM) Glucose 101 H (74-99) mg/dL Calcium 8.9 (8.4-10.2) mg/dL Total Bilirubin 0.3 (0.2-1.3) mg/dL AST 32 (14-36) U/L ALT 25 (4-34) U/L Alkaline Phosphatase 88 (38-126) U/L Creatine Kinase 76 (30-135) U/L Troponin I (0.000-0.034) ng/mL Total Protein 6.6 (6.3-8.2) g/dL Albumin 4.0 (3.5-5.0) g/dL Triglycerides (0.00-149.00) mg/dL Cholesterol (0.00-200.00) mg/dL LDL Cholesterol, Calc (0.0-131.0) mg/dL VLDL Cholesterol, Calc (5.00-40.00) mg/dL HDL Cholesterol (40.00-60.00) mg/dL Cholesterol/HDL Ratio Ratio 07/24/23 07/24/23 Range/Units 16:35 16:35 WBC (3.8-10.6) k/uL RBC (3.80-5.40) m/uL Hgb (11.4-16.0) gm/dL Hct (34.0-46.0) % MCV (80.0-100.0) fL MCH (25.0-35.0) pg MCHC (31.0-37.0) g/dL RDW (11.5-15.5) % Plt Count (150-450) k/uL MPV Neutrophils % % Lymphocytes % % Monocytes % % Eosinophils % % Basophils % % Neutrophils # (1.3-7.7) k/uL Lymphocytes # (1.0-4.8) k/uL Monocytes # (0-1.0) k/uL Eosinophils # (0-0.7) k/uL Basophils # (0-0.2) k/uL PT (10.0-12.5) sec INR (<1.2) APTT (22.0-30.0) sec Sodium (137-145) mmol/L Potassium (3.5-5.1) mmol/L Chloride (98-107) mmol/L Carbon Dioxide (22-30) mmol/L Anion Gap mmol/L BUN (7-17) mg/dL Creatinine (0.52-1.04) mg/dL Est GFR (CKD-EPI)AfAm (>60 ml/min/1.73 sqM) Est GFR (CKD-EPI)NonAf (>60 ml/min/1.73 sqM) Glucose (74-99) mg/dL Calcium (8.4-10.2) mg/dL Total Bilirubin (0.2-1.3) mg/dL AST (14-36) U/L ALT (4-34) U/L Alkaline Phosphatase (38-126) U/L Creatine Kinase (30-135) U/L Troponin I <0.012 (0.000-0.034) ng/mL Total Protein (6.3-8.2) g/dL Albumin (3.5-5.0) g/dL Triglycerides 242.00 H (0.00-149.00) mg/dL Cholesterol 200.00 (0.00-200.00) mg/dL LDL Cholesterol, Calc 97.1 (0.0-131.0) mg/dL VLDL Cholesterol, Calc 48.40 H (5.00-40.00) mg/dL HDL Cholesterol 54.50 (40.00-60.00) mg/dL Cholesterol/HDL Ratio 3.67 Ratio - Medical Decision Making Was pt. sent in by a medical professional or institution (Dr. PA, INDOOR LANDSCAPER/GARDENER, urgent care, hospital, or long-term...) When possible be specific @ -No Did you speak to anyone other than the patient for history (EMS, parent, family, police, friend...)? What history was obtained from this source @ -No Did you review nursing and triage notes (agree or disagree)? Why? @ -I reviewed and agree with nursing and triage notes Were old charts reviewed (outside hosp., previous admission, EMS record, old EKG, old radiological studies, urgent care reports/EKG's, long-term records)? Report findings @ -No old charts were reviewed Differential Diagnosis (chest pain, altered mental status, abdominal pain women, abdominal pain men, vaginal bleeding, weakness, fever, dyspnea, syncope, headache, dizziness, GI bleed, back pain, seizure, CVA, palpatations, mental health, musculoskeletal)? @ -Differential CVA Ischemic stroke, hemorrhagic stroke, brain tumor, atypical migraine, Wernicke's encephalopathy, seizure, multiple sclerosis, meningitis, encephalitis, hypoglycemia, Guillain-Snow, electrolytes disturbance, myasthenia gravis.... This is not meant to be an all-inclusive list EKG interpreted by me (3pts min.). @ -Yes and demonstrates sinus rhythm with a rate 72. FL interval 161. QRS 80. QTc of 430. No acute ST segment elevations or depressions X-rays interpreted by me (1pt min.). @ -Yes and demonstrates no acute process CT interpreted by me (1pt min.). @ -Yes and demonstrates no acute process U/S interpreted by me (1pt. min.). @ -None done What testing was considered but not performed or refused? (CT, X-rays, U/S, labs)? Why? @ -None What meds were considered but not given or refused? Why? @ -None Did you discuss the management of the patient with other professionals (professionals i.e. , PA, INDOOR LANDSCAPER/GARDENER, lab, RT, psych nurse, social worker assistant, attorney lawyer, teacher, restoration officer, caseworker protective services)? Give summary @ -Spoke with Dr. Burton who recommends loading dose of Plavix. Also spoke with Dr. Fonseca who will admit the patient Was smoking cessation discussed for >3mins.? @ -No Was critical care preformed (if so, how long)? @ -Yes, 35 minutes for code stroke activation Were there social determinants of health that impacted care today? How? (Homelessness, low income, unemployed, alcoholism, drug addiction, tra nsportation, low edu. Level, literacy, decrease access to med. care, long term, rehab)? @ -No Was there de-escalation of care discussed even if they declined (Discuss DNR or withdrawal of care, Hospice)? DNR status @ -No What co-morbidities impacted this encounter? (DM, HTN, Smoking, COPD, CAD, Cancer, CVA, ARF, Chemo, Hep., AIDS, mental health diagnosis, sleep apnea, morbid obesity)? @ -None Was patient admitted / discharged? Hospital course, mention meds given and route, prescriptions, significant lab abnormalities, going to OR and other pertinent info. @ -Upon arrival patient was seen and evaluated in room 3. Thorough history and physical exam was performed. Symptom onset was within 4 and half hours. Patient has an NIH of 2 for her left-sided facial droop and left facial paresthesias. Code stroke was activated. Patient does go for CT and CTA. Imaging is remarkable for right-sided carotid disease. Patient is aware of this. I did recommend admission as patient does have persistent symptoms. Spoke with Dr. Motley who agreed to aspirin and 300 mg of Plavix administration. I discussed this with the patient was agreeable to admission. Spoke with Dr. Webb for the admission Undiagnosed new problem with uncertain prognosis? @ -Yes Drug Therapy requiring intensive monitoring for toxicity (Heparin, Nitro, Insulin, Cardizem)? @ -No Were any procedures done? @ -No Diagnosis/symptom? @ -Acute left-sided facial droop, suspected CVA Acute, or Chronic, or Acute on Chronic? @ -Acute Uncomplicated (without systemic symptoms) or Complicated (systemic symptoms)? @ -Complicated Side effects of treatment? @ -No Exacerbation, Progression, or Severe Exacerbation? @ -No Poses a threat to life or bodily function? How? (Chest pain, [place], [place], pneumonia, PE, COPD, DKA, ARF, appy, cholecystitis, CVA, Diverticulitis, Homicidal, Suicidal, threat to staff... and all critical care pts) @ -Yes as patient does present with strokelike symptoms Past Medical History Past Medical History: COPD Additional Past Medical History / Comment(s): chronic back pain, neuropathy, factor 5 bleeding disorder, tested positive for hep C in 2018 and was treated for it and has not tested positive since then. History of Any Multi-Drug Resistant Organisms: None Reported Past Surgical History: Hysterectomy, Tonsillectomy, Tubal Ligation Additional Past Surgical History / Comment(s): spinal tap, carpal tunnel bilat, facial surgery, Past Psychological History: Depression, PTSD Smoking Status: Former smoker, Vaper Past Alcohol Use History: None Reported Past Drug Use History: None Reported Course Vital Signs 07/24/23 07/24/23 07/24/23 15:56 16:42 16:45 Temperature 97.8 F Pulse Rate 77 75 80 Pulse Rate [ Pulse Oximetery ] Respiratory 18 10 L 11 L Rate Blood Pressure 153/99 171/77 171/97 Blood Pressure [Left Arm] O2 Sat by Pulse 97 97 Oximetry 07/24/23 07/24/23 07/24/23 17:00 17:15 17:30 Temperature Pulse Rate Pulse Rate [ Pulse Oximetery ] Respiratory Rate Blood Pressure 168/93 151/88 161/88 Blood Pressure [Left Arm] O2 Sat by Pulse 100 98 Oximetry 07/24/23 07/24/23 07/24/23 18:00 18:15 18:30 Temperature Pulse Rate 74 76 75 Pulse Rate [ Pulse Oximetery ] Respiratory 20 10 L 14 Rate Blood Pressure 141/80 169/91 145/81 Blood Pressure [Left Arm] O2 Sat by Pulse 96 94 L Oximetry 07/24/23 07/24/23 07/24/23 18:45 20:00 20:03 Temperature 97.6 F Pulse Rate 88 85 Pulse Rate [ 81 Pulse Oximetery ] Respiratory 17 16 18 Rate Blood Pressure 135/78 139/93 Blood Pressure 155/76 [Left Arm] O2 Sat by Pulse 95 97 97 Oximetry Disposition Clinical Impression: Cerebrovascular accident (CVA), Numbness and tingling of left side of face Disposition: ADMITTED IP TO THIS [facility] Condition: Good Is patient prescribed a controlled substance at d/c from ED?: No Time of Disposition: 18:48 Decision to Admit Reason: Admit from EC Decision Date: 07/24/23 Decision Time: 18:48
[2023-07-24] MEDS: ATORVASTATIN 40 MG TAB PO SCH (18:51)
[2023-07-24] MEDS: ASPIRIN 325 MG TAB PO STA (18:51)
[2023-07-24] MEDS: CLOPIDOGREL 75 MG TAB PO STA (18:51)
[2023-07-24] MEDS ORDERED: ALBUTEROL NEBULIZED 2.5 MG/3 ML INHALATION PRN (20:29)
[2023-07-24] MEDS ORDERED: CYCLOBENZAPRINE 10 MG TAB PO PRN (20:29)
[2023-07-24] MEDS: HYDROcodone/APAP 10-325MG 1 EACH TAB PO SCH (21:16)
[2023-07-24] MEDS: NON FORMULARY DRUG (Dextroamphetamine/Amphetamine [Adderall] 20 MG Tablet) PO SCH (21:17)
--- NOTE | 2023-07-25 01:00 | P.HPIM ---
History of Present Illness H&P Date: 07/24/23 Chief Complaint: Facial numbness tingling 57-year-old female with history of factor 5 Leiden, spinal stenosis Patient coming in reporting some left-sided facial tingling and left-sided facial droop she claims lasted about 20 minutes while she was at work she works as a licensed social worker. She also reports some tingling in the left hand however denies any headache denies any falls head injury denies any changes in vision or hearing denies any changes in speech denies any chest pain trouble breathing nausea vomiting abdominal pain changes in bowel or urinary habit denies any diarrhea or GI bleeding Patient does have history of TIA twice in the past She denies any recent travel hospital stay denies any history of blood clots denies any recent illness or upper respiratory infection symptoms At time of my evaluation she was completely back to normal Patient admits to vaping denies any drugs or alcohol review of systems Pertinent positives as noted in HPI. All other systems were reviewed and are negative on exam Constitutional: No acute distress, conversant, pleasant Eyes: Anicteric sclerae, moist conjunctiva, Pupils equal round reactive to light ENMT: NC/AT Oropharynx clear, no erythema, or exudates Neck: Supple, no masses, or JVD No carotid bruits No thyromegaly Lungs: Clear to auscultation Clear to percussion Normal respiratory effort, no accessory muscle use Cardiovascular: Heart regular in rate and rhythm, No murmurs, gallops, or rubs No peripheral edema Abdominal: Soft Nontender, no guarding, rebound or rigidity Abdomen moving with respiration Normoactive bowel sounds Extremities: No digital cyanosis No clubbing Pedal pulses intact and symmetrical Radial pulses intact and symmetrical No calf tenderness Psychiatric: Alert and oriented to person, place and time Appropriate affect fair judgement Neuro Muscles Strength 5/5 in all 4 extremities Sensation to light touch grossly present throughout Cranial nerves II-XII grossly intact Finger-nose exam [id number] exam both are unremarkable Past Medical History Past Medical History: COPD Additional Past Medical History / Comment(s): chronic back pain, neuropathy, factor 5 bleeding disorder, tested positive for hep C in 2018 and was treated for it and has not tested positive since then. History of Any Multi-Drug Resistant Organisms: None Reported Past Surgical History: Hysterectomy, Tonsillectomy, Tubal Ligation Additional Past Surgical History / Comment(s): spinal tap, carpal tunnel bilat, facial surgery, Past Psychological History: Depression, PTSD Smoking Status: Former smoker, Vaper Past Alcohol Use History: None Reported Past Drug Use History: None Reported Medications and Allergies Home Medications Medication Instructions Recorded Confirmed Type ARIPiprazole [Abilify] 5 mg PO DAILY 04/27/20 07/24/23 History Albuterol Inhaler [Ventolin Hfa 2 puff INHALATION RT-QID PRN 04/27/20 07/24/23 History Inhaler] Furosemide [Lasix] 20 mg PO DAILY 04/27/20 07/24/23 History Meloxicam 15 mg PO DAILY 04/27/20 07/24/23 History Montelukast Sodium [Singulair] 10 mg PO DAILY 04/27/20 07/24/23 History Pantoprazole [Protonix] 40 mg PO DAILY 04/27/20 07/24/23 History Potassium Chloride [Klor-Con 10] 10 meq PO DAILY 04/27/20 07/24/23 History Cyclobenzaprine [Flexeril] 10 mg PO TID PRN 02/28/21 07/24/23 History HYDROcodone/APAP 10-325MG [[place] 1 tab PO QID 02/28/21 07/24/23 History 10-325] Venlafaxine HCl [Effexor] 75 mg PO DAILY 02/28/21 07/24/23 History modafiniL [Provigil] 200 mg PO BID 02/28/21 07/24/23 History Aspirin EC [Ecotrin Low Dose] 81 mg PO DAILY 07/24/23 07/24/23 History Cholecalciferol [Vitamin D3 (125 125 mcg PO DAILY 07/24/23 07/24/23 History Mcg = 5000 Iu)] Dextroamphetamine/Amphetamine 20 mg PO BID 07/24/23 07/24/23 History [Adderall] HYDROcodone bitartrate [Hysingla 60 mg PO DAILY 07/24/23 07/24/23 History ER] Rosuvastatin [Crestor] 10 mg PO DAILY 07/24/23 07/24/23 History Allergies Allergy/AdvReac Type Severity Reaction Status Date / Time cyclobenzaprine Allergy Vomiting, Verified 07/24/23 19:57 [From Flexeril] but can take if she has to levofloxacin [From Levaquin] Allergy Anaphylaxis Verified 07/24/23 19:57 she thinks, but doesn't remember pregabalin [From Lyrica] Allergy "blacks Verified 07/24/23 19:57 out" black olives Allergy Anaphylaxis Uncoded 07/24/23 19:57 Physical Exam Vitals: Vital Signs Temp Pulse Pulse Resp BP BP Pulse Ox 07/24/23 20:03 85 18 139/93 97 07/24/23 20:00 97.6 F 81 16 155/76 97 07/24/23 18:45 88 17 135/78 95 07/24/23 18:30 75 14 145/81 94 L 07/24/23 18:15 76 10 L 169/91 96 07/24/23 18:00 74 20 141/80 07/24/23 17:30 161/88 07/24/23 17:15 151/88 98 07/24/23 17:00 168/93 100 07/24/23 16:45 80 11 L 171/97 97 07/24/23 16:42 75 10 L 171/77 07/24/23 15:56 97.8 F 77 18 153/99 97 Intake and Output 07/24/23 07/24/23 07/25/23 14:59 22:59 06:59 Other: Weight 79.379 kg Results CBC & Chem 7: 07/24/23 16:35 07/24/23 16:35 Labs: Abnormal Lab Results - Last 24 Hours (Table) 07/24/23 07/24/23 Range/Units 16:35 16:35 PT 9.9 L (10.0-12.5) sec Sodium 136 L (137-145) mmol/L Creatinine 0.45 L (0.52-1.04) mg/dL Glucose 101 H (74-99) mg/dL Assessment and Plan Assessment: 57-year-old female history of TIA factor V Leiden she comes in reporting left facial droop and numbness discussed case with ED doctor and accepted the admission for TIA with anticipated length of stay less than 2 midnights TIA with history of factor V [place] CT of the brain showed some linear high density right temporal lobe appears to correspond to some choroid plexus calcification on sagittal series otherwise no acute intracranial abnormalities CT angio head and neck showed dominant left vertebral artery plaque resulting in mild just under 50% proximal right ICA stenosis, no large vessel intracranial arterial occlusion significant stenosis or aneurysm Continue with aspirin and statin Patient was loaded with Plavix in the ED Neuro consult Check echocardiogram Fall precautions PT/OT evaluation Blood work unremarkable hemoglobin 12.5 white count 7 BUN 10 creatinine 0.45 Sodium 136 potassium 3.8 Full code DVT prophylaxis heparin subcu 3 times daily
[2023-07-25] MEDS: PANTOPRAZOLE 40 MG TABLET PO SCH (05:56)
[2023-07-25] MEDS: CHOLECALCIFEROL 125 MCG (5000 IU) TABLET PO SCH (08:36)
[2023-07-25] MEDS: ASPIRIN 81 MG PO SCH (08:36)
[2023-07-25] MEDS: CLOPIDOGREL 75 MG TAB PO SCH (08:36)
[2023-07-25] MEDS: VENLAFAXINE HCL 75 MG TAB PO SCH (08:36)
[2023-07-25] MEDS: ARIPiprazole 5 MG TAB PO SCH (08:36)
[2023-07-25] MEDS: MONTELUKAST 10 MG TAB PO SCH (08:36)
[2023-07-25] MEDS: HEPARIN SODIUM,PORCINE 5,000 UNIT/ML 1 ML VIAL SQ SCH (08:37)
[2023-07-25 08:45] VITALS: BP 109/68; PULSE 81; TEMP 98.2
[2023-07-25] MEDS ORDERED: ASPIRIN 325 MG TAB PO SCH (09:00)
[2023-07-25] MEDS ORDERED: NON FORMULARY DRUG (Aspirin Ec 81 MG Tablet) PO SCH (09:00)
[2023-07-25] MEDS ORDERED: ATORVASTATIN 20 MG TAB PO SCH (09:00)
[2023-07-25] MEDS ORDERED: MELOXICAM 7.5 MG TAB PO SCH (09:00)
[2023-07-25 09:06] LABS: Basophils # (A) 0.1 k/uL (0-0.2); Basophils % (A) 2 %; Eosinophils # (A) 0.3 k/uL (0-0.7); Eosinophils % (A) 5 %; HCT 43.8 % (34.0-46.0); HGB 13.6 gm/dL (11.4-16.0); Lymphocytes # (A) 2.4 k/uL (1.0-4.8); Lymphocytes % (A) 44 %; MCH 30.1 pg (25.0-35.0); MCV 96.9 fL (80.0-100.0); Mean Platelet Volume 6.9; Monocytes # (A) 0.3 k/uL (0-1.0); Monocytes % (A) 6 %; Neutrophils # (A) 2.1 k/uL (1.3-7.7); Neutrophils % (A) 40 %; Platelet Count 315 k/uL (150-450); RBC 4.52 m/uL (3.80-5.40); RDW 12.8 % (11.5-15.5); WBC 5.4 k/uL (3.8-10.6)
[2023-07-25 09:13] LABS: African American GFR (CKD) >90 (>60 ml/min/1.73 sqM); Anion Gap 5 mmol/L; Blood Urea Nitrogen 11 mg/dL (7-17); Calcium 9.2 mg/dL (8.4-10.2); Carbon Dioxide 27 mmol/L (22-30); Chloride 107 mmol/L (98-107); Glucose 108 mg/dL (74-99); Magnesium 2.2 mg/dL (1.6-2.3); Non-African American GFR(CKD) >90 (>60 ml/min/1.73 sqM); Potassium 3.9 mmol/L (3.5-5.1); Sodium 139 mmol/L (137-145)
[2023-07-25] MEDS: HYDROCODONE BITARTRATE 60 MG PO SCH (11:45)
[2023-07-25 12:23] LABS: Chol/HDL Ratio 3.67 Ratio; LDL Cholesterol,Calculated 97.1 mg/dL (0.0-131.0)
[2023-07-25 12:28] VITALS: RESP 16
--- NOTE | 2023-07-25 13:54 | MR ---
EXAMINATION TYPE: MR brain wo con DATE OF EXAM: 07/25/2023 1:14 PM CLINICAL INDICATION:Female, 57 years old with history of cva, Lt side numbness, facial droop COMPARISON: 07/24/2023. TECHNIQUE: Multi planar, multi sequence imaging was performed through the brain including: T1, T2, In version recovery, Diffusion weighted imaging, and gradient echo imaging. No gadolinium was given. FINDINGS: The castellanos-white junctions, ventricular system, basal cisterns appear unremarkable.. Midline structures show no abnormality. Diffusion-weighted imaging shows no evidence of restricted diffusion. The susce ptibility weighted images do not reveal any evidence for micro-hemorrhage. The bone marrow signal is within normal limits. Paranasal sinuses and mastoid air cells: No significant paranasal sinus disease. Visualized orbits: Orbital contents are intact. IMPRESSION: No evidence of intracranial mass or acute/subacute infarct. No evidence for intracranial hemorrhage. High density in prior CT correlates with choroid plexus calcifications.
--- NOTE | 2023-07-25 14:42 | P.DS ---
Providers Date of admission: 07/24/23 18:32 Expected date of discharge: 07/25/23 Attending physician: Hiren Fonseca MD Consults: 07/24/23 18:34 Consult Physician Urgent Consulting Provider: Sharri Marin Consult Reason/Comments: Right-sided facial numbness, suspected CVA Do you want consulting provider notified?: Yes [facility]: TIA Hx of Factor V Leiden Central Sleep Apnea Chronic Narcotic Dependence Hospital Course: 57-year-old female with history of factor 5 Leiden, spinal stenosis presented with left-sided facial tingling and left-sided facial droop. Pt was admitted and evaluated by neurology. Labs were unremarkable. CTH showed choroid plexus calcifications, otherwise unremarkable CTH. CT angio head and neck showed dominant left vertebral artery plaque resulting in mild just under 50% proximal right ICA stenosis, no large vessel intracranial arterial occlusion significant stenosis or aneurysm. MR Brain was negative for stroke. Pt discharged home with instructions to f/u with PCP for echo result. Started on DAPT for high risk TIA for 21 days. Rosuvastatin dose increased to 20mg. Gen: In NAD, non-toxic HEENT: normocephalic, atraumatic, hearing acuity is intant, mucous membranes moist CVS: perfusing all extremities well, no pitting edema, Respiratory: symmetric chest expansion, no accessory muscle use, GI: soft, NTTP, ND, : no suprapubic tenderness, no CVA tenderness MSK/Derm: no rashes, cyanosis Neuro: CN II-XII intact, no motor weakness, Psych: cooperative, euthymic mood, judgment and insight is intact Patient Condition at Discharge: Good Plan - Discharge Summary New Discharge Prescriptions: New Clopidogrel [Plavix] 75 mg PO DAILY #21 tab Continue Potassium Chloride [Klor-Con 10 ER] 10 meq PO DAILY Pantoprazole [Protonix] 40 mg PO DAILY Montelukast Sodium [Singulair] 10 mg PO DAILY Meloxicam 15 mg PO DAILY Furosemide [Lasix] 20 mg PO DAILY Albuterol Inhaler [Ventolin Hfa Inhaler] 2 puff INHALATION RT-QID PRN PRN Reason: Shortness Of Breath ARIPiprazole [Abilify] 5 mg PO DAILY HYDROcodone/APAP 10-325MG [[place] 10-325] 1 tab PO QID Cholecalciferol [Vitamin D3 (125 Mcg = 5000 Iu)] 125 mcg PO DAILY Aspirin EC [Ecotrin Low Dose] 81 mg PO DAILY HYDROcodone bitartrate [Hysingla ER] 60 mg PO DAILY Cyclobenzaprine [Flexeril] 10 mg PO TID PRN PRN Reason: Muscle Spasm modafiniL [Provigil] 200 mg PO BID Venlafaxine HCl [Effexor] 75 mg PO DAILY Dextroamphetamine/Amphetamine [Adderall] 20 mg PO BID Changed Rosuvastatin [Crestor] 20 mg PO DAILY #60 tab Discharge Medication List ARIPiprazole [Abilify] 5 mg PO DAILY 04/27/20 [History] Albuterol Inhaler [Ventolin Hfa Inhaler] 2 puff INHALATION RT-QID PRN 04/27/20 [History] Furosemide [Lasix] 20 mg PO DAILY 04/27/20 [History] Meloxicam 15 mg PO DAILY 04/27/20 [History] Montelukast Sodium [Singulair] 10 mg PO DAILY 04/27/20 [History] Pantoprazole [Protonix] 40 mg PO DAILY 04/27/20 [History] Potassium Chloride [Klor-Con 10 ER] 10 meq PO DAILY 04/27/20 [History] Cyclobenzaprine [Flexeril] 10 mg PO TID PRN 02/28/21 [History] HYDROcodone/APAP 10-325MG [[place] 10-325] 1 tab PO QID 02/28/21 [History] Venlafaxine HCl [Effexor] 75 mg PO DAILY 02/28/21 [History] modafiniL [Provigil] 200 mg PO BID 02/28/21 [History] Aspirin EC [Ecotrin Low Dose] 81 mg PO DAILY 07/24/23 [History] Cholecalciferol [Vitamin D3 (125 Mcg = 5000 Iu)] 125 mcg PO DAILY 07/24/23 [History] Dextroamphetamine/Amphetamine [Adderall] 20 mg PO BID 07/24/23 [History] HYDROcodone bitartrate [Hysingla ER] 60 mg PO DAILY 07/24/23 [History] Clopidogrel [Plavix] 75 mg PO DAILY #21 tab 07/25/23 [Rx] Rosuvastatin [Crestor] 20 mg PO DAILY #60 tab 07/25/23 [Rx] Follow up Appointment(s)/Referral(s): Solange Godniez MD [Primary Care Provider] - 1-2 days Discharge Disposition: HOME SELF-CARE
--- NOTE | 2023-07-25 15:32 | CA ---
Transthoracic Echo Report Name: Nivia Sweeney Age: 57 Gender: F : 1965 Exam Date: 07/25/2023 07:27 Exam Location: [facility] Ht (in): 62 Wt (lb): 175 Ordering Physician: Lana Lagos MD Attending/Referring Phys: [id number], [employer] Geneticist Devora Hedrick, [facility] Procedure CPT: Indications: tia Cardiac Hx: Technical Quality: Good Contrast 1: Agitated Saline Total Dose (mL): 9 Contrast 2: Total Dose (mL): MEASUREMENTS (Male / Female) Normal Values 2D ECHO LV Diastolic Diameter PLAX 3.8 cm 4.2 - 5.9 / 3.9 - 5.3 cm LV Systolic Diameter PLAX 2.4 cm IVS Diastolic Thickness 1.1 cm 0.6 - 1.0 / 0.6 - 0.9 cm LVPW Diastolic Thickness 1.1 cm 0.6 - 1.0 / 0.6 - 0.9 cm LV Relative Wall Thickness 0.6 RV Internal Dim ED PLAX 2.9 cm LA Systolic Diameter LX 2.9 cm 3.0 - 4.0 / 2.7 - 3.8 cm LV Diastolic Volume MOD 4C 83.8 cm??? LV Systolic Volume MOD 4C 37.5 cm??? LV Ejection Fraction MOD 4C 55.2 % LV Cardiac Index MOD 4C 1463.0 cm???/min???m??? LV Diastolic Length 4C 7.9 cm LV Systolic Length 4C 6.3 cm LV Diastolic Volume MOD 2C 86.7 cm??? LV Systolic Volume MOD 2C 29.3 cm??? LV Ejection Fraction MOD 2C 66.2 % LV Cardiac Index MOD 2C 1815.8 cm???/min???m??? LV Diastolic Length 2C 7.4 cm LV Systolic Length 2C 5.6 cm LA Volume 35.5 cm??? 18 - 58 / 22 - 52 cm??? LA Volume Index 18.7 cm???/m??? 16 - 28 cm???/m??? M-MODE Aortic Root Diameter MM 3.0 cm MV E Point Septal Separation 0.3 cm AV Cusp Separation MM 1.9 cm DOPPLER MV Area PHT 4.2 cm??? Mitral E Point Velocity 110.1 cm/s Mitral A Point Velocity 86.9 cm/s Mitral E to A Ratio 1.3 MV Deceleration Time 180.1 ms TR Peak Velocity 234.2 cm/s TR Peak Gradient 21.9 mmHg Right Ventricular Systolic Press 26.9 mmHg FINDINGS Left Ventricle Left ventricular ejection fraction is estimated at 55-60 %. Small left ventricular cavity. Mildly increased septal wall thickness. Mildly increased posterior wall thickness. No obvious regional wall motion abnormalities. Right Ventricle Normal right ventricular size. Right ventricular systolic pressure within normal limits. Right Atrium Normal right atrial size. Negative agitated saline bubble study for right to left shunt. Left Atrium Normal left atrial size. Mitral Valve Structurally normal mitral valve. Trace to mild mitral regurgitation. Aortic Valve Trileaflet aortic valve. No aortic valve stenosis or regurgitation. Tricuspid Valve Structurally normal tricuspid valve. Trace to mild tricuspid regurgitation. Pulmonic Valve Structurally normal pulmonic valve. No pulmonic regurgitation. Pericardium No pericardial effusion. Aorta Normal size aortic root and proximal ascending aorta. CONCLUSIONS Normal LV systolic function Previewed by: Dr. Ivan Paz MD (Electronically Signed) Final Date: 25 July 2023 15:31
--- NOTE | 2023-07-25 16:22 | P.CNNES ---
History of Present Illness Consult date: 07/25/23 Reason for Consult: Left facial droop History of Present Illness: The patient is a 57-year-old female who is seen in neurologic consultation on A pril 2023, in collaboration with Meredith Correa, via teleneurology. The patient reports that yesterday she began to experience a tingling sensation in her left arm and face. She then noted drooping of the left side of her face. The patient denies any numbness or tingling in her tongue. There are no changes in vision or speech. The patient denies headache. She does report neck pain. Patient reportedly has a history of 2 TIAs. She is factor V Leiden positive. She also reports having a "cardiac event". In the emergency department, CT scan of the brain and CT angiogram were performe d. There is no evidence of acute hemorrhage or infarct. CT angiogram revealed no signs of significant stenosis or large vessel occlusion. Patient reports that her symptoms were present only for about 10 to 15 minutes. She does however, continue to feel a slight pulling sensation on the left lower lip. She had been noticing twitching. That has resolved. Past Medical History Past Medical History: COPD Additional Past Medical History / Comment(s): chronic back pain, neuropathy, factor 5 bleeding disorder, tested positive for hep C in 2018 and was treated for it and has not tested positive since then. History of Any Multi-Drug Resistant Organisms: None Reported Past Surgical History: Hysterectomy, Tonsillectomy, Tubal Ligation Additional Past Surgical History / Comment(s): spinal tap, carpal tunnel bilat, facial surgery, Past Psychological History: Depression, PTSD Smoking Status: Former smoker, Vaper Past Alcohol Use History: None Reported Past Drug Use History: None Reported Medications and Allergies Home Medications Medication Instructions Recorded Confirmed Type ARIPiprazole [Abilify] 5 mg PO DAILY 04/27/20 07/24/23 History Albuterol Inhaler [Ventolin Hfa 2 puff INHALATION RT-QID PRN 04/27/20 07/24/23 History Inhaler] Furosemide [Lasix] 20 mg PO DAILY 04/27/20 07/24/23 History Meloxicam 15 mg PO DAILY 04/27/20 07/24/23 History Montelukast Sodium [Singulair] 10 mg PO DAILY 04/27/20 07/24/23 History Pantoprazole [Protonix] 40 mg PO DAILY 04/27/20 07/24/23 History Potassium Chloride [Klor-Con 10 ER] 10 meq PO DAILY 04/27/20 07/24/23 History Cyclobenzaprine [Flexeril] 10 mg PO TID PRN 02/28/21 07/24/23 History HYDROcodone/APAP 10-325MG [[place] 1 tab PO QID 02/28/21 07/24/23 History 10-325] Venlafaxine HCl [Effexor] 75 mg PO DAILY 02/28/21 07/24/23 History modafiniL [Provigil] 200 mg PO BID 02/28/21 07/24/23 History Aspirin EC [Ecotrin Low Dose] 81 mg PO DAILY 07/24/23 07/24/23 History Cholecalciferol [Vitamin D3 (125 125 mcg PO DAILY 07/24/23 07/24/23 History Mcg = 5000 Iu)] Dextroamphetamine/Amphetamine 20 mg PO BID 07/24/23 07/24/23 History [Adderall] HYDROcodone bitartrate [Hysingla 60 mg PO DAILY 07/24/23 07/24/23 History ER] Clopidogrel [Plavix] 75 mg PO DAILY #21 tab 07/25/23 Rx Rosuvastatin [Crestor] 20 mg PO DAILY #60 tab 07/25/23 Rx Allergies Allergy/AdvReac Type Severity Reaction Status Date / Time cyclobenzaprine Allergy Vomiting, Verified 07/24/23 19:57 [From Flexeril] but can take if she has to levofloxacin [From Levaquin] Allergy Anaphylaxis Verified 07/24/23 19:57 she thinks, but doesn't remember pregabalin [From Lyrica] Allergy "blacks Verified 07/24/23 19:57 out" black olives Allergy Anaphylaxis Uncoded 07/24/23 19:57 Physical Examination - Vital Signs Vital Signs: Vital Signs Temp Pulse Pulse Resp BP BP Pulse Ox 07/25/23 08:00 16 07/25/23 07:00 98.2 F 81 18 109/68 96 07/25/23 02:00 98.1 F 78 16 116/70 96 07/24/23 20:03 85 18 139/93 97 07/24/23 20:00 97.6 F 81 16 155/76 97 07/24/23 18:45 88 17 135/78 95 07/24/23 18:30 75 14 145/81 94 L 07/24/23 18:15 76 10 L 169/91 96 07/24/23 18:00 74 20 141/80 07/24/23 17:30 161/88 07/24/23 17:15 151/88 98 07/24/23 17:00 168/93 100 07/24/23 16:45 80 11 L 171/97 97 07/24/23 16:42 75 10 L 171/77 07/24/23 15:56 97.8 F 77 18 153/99 97 Intake and Output 07/24/23 07/25/23 07/25/23 22:59 06:59 14:59 Other: # Voids 1 2 Weight 79.379 kg General: Patient is awake and alert. She is in no acute distress. She is well- nourished. HEENT: Head is atraumatic, normocephalic. Fundus not visualized. There is no scleral icterus. Mucous membranes are moist. Neck: Supple without carotid bruits Heart: Regular rate and rhythm without murmur Lungs: Essentially clear to auscultation. Extremities: Without edema Neurological examination Mental status: The patient awake, alert and oriented x 3. Speech is clear. There is no dysarthria or aphasia. Cranial nerves: Pupils are equal at 3 mm and reactive to light. Visual glover are full to confrontation. Extraocular movements are intact. There is no nystagmus. Facial sensation is intact. There is slight flattening of the left nasolabial fold. Smile is intact. Hearing is grossly intact. Uvula and palate are midline. Shoulder shrug is symmetric. Tongue protrudes midline. Motor: Strength is 5/5 throughout. Sensation: Intact to light touch throughout. There is no extinction with double simultaneous stimulation. Deep tendon reflexes: 2+/4+ throughout. Coordination: [id number], [id number]-pc-[id number] and rapid alternating movements are intact. Gait: Not assessed Results - Laboratory Findings CBC and BMP: 07/25/23 08:13 07/25/23 08:13 Abnormal Lab Findings: Abnormal Labs 07/24/23 07/24/23 07/24/23 16:35 16:35 16:35 PT 9.9 L Sodium 136 L Creatinine 0.45 L Glucose 101 H Triglycerides 242.00 H VLDL Cholesterol, Calc 48.40 H 07/25/23 08:13 PT Sodium Creatinine Glucose 108 H Triglycerides VLDL Cholesterol, Calc - Diagnostic Findings Comments: MRI of the brain imaging has been personally viewed. I agree with the reported no acute infarct. Assessment and Plan Assessment: 1. Transient ischemic attack involving left facial numbness drooping and left arm numbness. 2. History of previous TIAs 3. History of factor V Leiden deficiency 4. History of "cardiac event" Plan: 1. Stroke order set has been placed 2. High intensity statin should be initiated 3. Plavix 75 mg should be added to the patient's medication regime 4. The patient reportedly has a follow-up appointment with her neurologist, this week. She was advised to call his office on Thursday to advise them of the events that occurred, leading to hospitalization 5. The patient is neurologically stable for discharge following completion of all of her tests Time with Patient: Greater than 30 (60 minutes were spent evaluating this patient today including obtaining history, examining the patient, reviewing imaging, chart documentation, labs, placing orders and creating this note)
[2023-07-25] MEDS ORDERED: CLOPIDOGREL 75 MG TAB PO SCH (16:30)
== END 2023-07-25 15:32 | disposition home or self-care (01) ==
LOC: EC 15:51 → 6NMEDSUR 18:32
PROVIDERS: ADMIT Internal Medicine; ATTEND Internal Medicine
DX: G45.9 Transient cerebral ischemic attack, unspecified (principal); D68.51 Activated protein C resistance; G47.31 Primary central sleep apnea; I67.2 Cerebral atherosclerosis; F11.20 Opioid dependence, uncomplicated; M48.00 Spinal stenosis, site unspecified; F17.290 Nicotine dependence, other tobacco product, uncomplicated; Z79.82 Long term (current) use of aspirin; Z79.02 Long term (current) use of antithrombotics/antiplatelets; Z79.1 Long term (current) use of non-steroidal anti-inflammatories (NSAID); Z88.5 Allergy status to narcotic agent; Z79.899 Other long term (current) drug therapy; Z88.1 Allergy status to other antibiotic agents; Z88.8 Allergy status to other drugs, medicaments and biological substances; Z91.018 Allergy to other foods; Z86.73 Personal history of transient ischemic attack (TIA), and cerebral infarction without residual deficits
CPT/HCPCS: 96372; 99285; 36415; 93005; 93306; 80061; 80053; 80048; 82550; 83735; 84484; 85025 ×2; 85610; 85730; 83036; 71046; 70496; 70450; 70498; 70551; G0378 ×2; J1644; Q9967

== ENCOUNTER → 2023-09-04 | Outpatient (CLI) | payer MEDICARE, OTHER ==
--- NOTE | 2023-09-04 10:50 | MM ---
Reason for Exam: Clinical finding. Last mammogram was performed 3 year(s) and 3 month(s) ago. Patient History: Menarche at age 14. First Full-Term at age 17. Left ovary removed at age 33. Right ovary removed at age 33. Hysterectomy at age 33. Postmenopausal. Patient used Estrogen for 20 years. Risk Values: Shey 5 year model risk: 0.9%. NCI Lifetime model risk: 5.9%. Prior Study Comparison: 06/26/2016 Screening Mammogram, [facility]. 09/02/2017 Screening Mammogram, [facility]. 05/17/2019 Bilateral Screening Mammogram, [facility]. 05/21/2020 Bilateral Diagnostic Mammogram, [facility]. 05/21/2020 Bilateral Diagnostic Ultrasound, [facility]. Tissue Density: There are scattered areas of fibroglandular density. Findings: Analyzed By CAD. The pattern is symmetrical. Focal asymmetries remain present stable from comparison. Benign punctate calcifications are present bilaterally. No suspicious groups of microcalcifications, spiculated or lobular masses, architectural distortion or other secondary signs of malignancy are mammographically apparent. Overall Assessment: Benign, BI-RAD 2 Management: Screening Mammogram of both breasts in 1 year. A negative mammogram report should not preclude additional follow up of suspicious palpable abnormalities. Patient should continue monthly self breast exam. A clinical breast exam by your physician is recommended on an annual basis and results should be correlated with mammographic findings. Note on Shey scores and lifetime risk: 1. A Shey score greater than 3% is considered moderate risk. If this is the case, consider specialist referral to assess eligibility for a risk reducing agent. 2. If overall lifetime risk for the development of breast cancer is 20% or higher, the patient may qualify for future screening with alternating mammogram and breast MRI. Electronically signed and approved by: Shaun Sheppard D.O. Radiologis
== END | disposition home or self-care (01) ==
LOC: RADMAMWWP 10:24
PROVIDERS: ATTEND Family Medicine
DX: R92.323 Mammographic fibroglandular density, bilateral breasts (principal); R92.1 Mammographic calcification found on diagnostic imaging of breast; Z78.0 Asymptomatic menopausal state
CPT/HCPCS: 77066; G0279; 77062

== ENCOUNTER → 2023-09-17 | Outpatient (CLI) | payer MEDICARE, OTHER ==
--- NOTE | 2023-09-17 10:53 | MR ---
EXAMINATION TYPE: MR knee LT wo con DATE OF EXAM: 09/17/2023 COMPARISON: None HISTORY: Pain and swelling x2 months TECHNIQUE: Multiplanar, multisequence imaging of the left knee is performed without IV contrast. FINDINGS: MEDIAL MENISCUS: There is abnormal signal in the posterior horn of the medial meniscus compatible wit h a meniscal tear. Cannot exclude a component of the superior extrusion of meniscus LATERAL MENISCUS: Anterior and posterior horns are intact without tear. CRUCIATE LIGAMENTS: The anterior and posterior cruciate ligaments are intact no evidence of tear. COLLATERAL LIGAMENTS: The medial collateral ligament and lateral collateral ligament complex are inta ct. EXTENSOR MECHANISM: Visualized quadriceps and patellar tendons are intact. Increased signal within th e suprapatellar bursa can be associated with fat pad impingement syndrome. EFFUSION: No significant suprapatellar joint effusion. POPLITEAL CYST: There is a 1 x 0.6 x 1.2 cm popliteal fossa cyst TRICOMPARTMENT SPACES: Mild narrowing of the medial compartment of the knee joint and patellofemoral joint. Marginal tiny spurs. These findings along the upper margin of the patella. Small amount of flu id within the joint space. CARTILAGE: Thinning of the lateral patellar cartilage compatible with grade II chondromalacia. BONE MARROW SIGNAL: No focal abnormal marrow signal is appreciated. IMPRESSION: 1. Posterior horn medial meniscal tear 2. Wzuv-py-fqlvniij osteoarthritis 3. Tiny popliteal fossa cyst measuring 1 x 0.6 x 1.2 cm. 4. Correlate for fat pad impingement syndrome.
== END | disposition home or self-care (01) ==
LOC: RADMRIMAIN 10:00
PROVIDERS: ATTEND Psychiatry & Neurology Neurology
DX: S83.242A Other tear of medial meniscus, current injury, left knee, initial encounter (principal); G45.9 Transient cerebral ischemic attack, unspecified; M17.12 Unilateral primary osteoarthritis, left knee; M71.22 Synovial cyst of popliteal space [Baker], left knee; E65 Localized adiposity

== ENCOUNTER → 2023-09-21 | Outpatient (CLI) | payer MEDICARE, OTHER ==
--- NOTE | 2023-09-22 11:12 | MR ---
EXAMINATION TYPE: MR lumbar spine wo con DATE OF EXAM: 09/21/2023 4:26 PM CLINICAL INDICATION:Female, 58 years old with history of M54.5 LOW BACK PAIN Z79.891 USE OF OPIATE, Low back pain, Hx SI fusion 1 year ago COMPARISON: 09/07/2019 TECHNIQUE: Multi planar, multi sequence imaging was performed utilizing: T1-weighted, T2-weighted, a nd turbo inversion recovery imaging of the lumbar spine. IV Contrast: (None if empty) FINDINGS: Alignment: The lumbar vertebral bodies have preserved heights and alignment. Cord: The conus medullaris and the distal spinal cord appear unremarkable with regards to their signa l intensity and morphology. Bones/Discs: Mild degeneration changes throughout the spine with osteophyte formation and facet joint arthropathy. Multilevel disc desiccation is present.No abnormal bony edema on inversion recovery seq uences. T12-L1: No evidence of significant spinal canal stenosis or neural foraminal stenosis. L1-L2: No evidence of significant spinal canal stenosis or neural foraminal stenosis. L2-L3: No evidence of significant spinal canal stenosis or neural foraminal stenosis. L3-L4: Disc bulge and facet joint arthropathy result in mild spinal canal and moderate bilateral neur al foraminal stenosis. L4-L5: Disc bulge and facet joint arthropathy result in mild spinal canal and mild moderate to severe bilateral. Neural foraminal stenosis. L5-S1: The disc has a rounded posterior morphology without significant spinal canal stenosis. Facet j oint arthropathy with moderate to severe left and [id number] right neural foraminal stenosis. No significant spinal canal or neural foraminal stenosis in the remainder of the visualized levels. Other findings: None. IMPRESSION: 1. No definitive evidence of disc herniation or significant spinal canal stenosis. 2. Mild to moderate disc degeneration with associated osteoarthritic changes. No foraminal stenosis worse at L4-L5 with moderate to severe bilateral, L5-S1 with moderate to severe left and L3-L4 with m oderate bilateral stenosis.
== END | disposition home or self-care (01) ==
LOC: RADMRIMAIN 15:20
PROVIDERS: ATTEND Psychiatry & Neurology Neurology
DX: M51.36 Other intervertebral disc degeneration, lumbar region (principal); M47.816 Spondylosis without myelopathy or radiculopathy, lumbar region; Z79.891 Long term (current) use of opiate analgesic; Z98.1 Arthrodesis status
CPT/HCPCS: 72148

== ENCOUNTER 2024-01-17 14:43 | Emergency (ER) | payer MEDICARE, OTHER ==
[2024-01-17 14:54] VITALS: TEMP 98
[2024-01-17] MEDS: LIDOCAINE VISCOUS 2% 15 ML CUP PO ONE (15:46)
[2024-01-17] MEDS: DEXAMETHASONE SOD PHOSPHATE 10 MG/ML 1 ML VIAL IVP STA (15:46)
[2024-01-17] MEDS: SODIUM CHLORIDE 0.9% 500 ML 500 ML IV ONE (15:47)
[2024-01-17] MEDS: SODIUM CHLORIDE 0.9% 1,000 ML IV ONE (15:47)
[2024-01-17 15:48] LABS: Basophils % (A) 0 %; Eosinophils # (A) 0.2 k/uL (0-0.7); Eosinophils % (A) 1 %; HCT 39.3 % (34.0-46.0); HGB 12.9 gm/dL (11.4-16.0); Lymphocytes # (A) 1.5 k/uL (1.0-4.8); Lymphocytes % (A) 9 %; MCH 30.6 pg (25.0-35.0); MCHC 32.8 g/dL (31.0-37.0); MCV 93.3 fL (80.0-100.0); Mean Platelet Volume 6.9; Monocytes # (A) 0.7 k/uL (0-1.0); Monocytes % (A) 4 %; Neutrophils # (A) 13.7 k/uL (1.3-7.7); Neutrophils % (A) 83 %; Platelet Count 268 k/uL (150-450); RBC 4.21 m/uL (3.80-5.40); RDW 12.3 % (11.5-15.5); WBC 16.4 k/uL (3.8-10.6)
--- NOTE | 2024-01-17 15:59 | ED ---
ENT HPI - General Chief complaint: ENT Stated complaint: throat swelling Time Seen by Provider: 01/17/24 15:12 Source: patient, RN notes reviewed Mode of arrival: ambulatory Limitations: no limitations - History of Present Illness Initial comments: 58-year-old female presents emergency department chief complaint of right-sided neck swelling, sore throat, difficulty swallowing. States that started with a cold over a week ago was placed on antibiotics and steroids states that has not gotten worse the last few days with right-sided neck discomfort she states that hurts to swallow states that her uvula is swollen and is worse when she lays down. She states that she noticed some discoloration of the back of her throat. - Related Data Home Medications Medication Instructions Recorded Confirmed ARIPiprazole [Abilify] 5 mg PO DAILY 04/27/20 07/24/23 Albuterol Inhaler [Ventolin Hfa 2 puff INHALATION RT-QID PRN 04/27/20 07/24/23 Inhaler] Furosemide [Lasix] 20 mg PO DAILY 04/27/20 07/24/23 Meloxicam 15 mg PO DAILY 04/27/20 07/24/23 Montelukast Sodium [Singulair] 10 mg PO DAILY 04/27/20 07/24/23 Pantoprazole [Protonix] 40 mg PO DAILY 04/27/20 07/24/23 Potassium Chloride [Klor-Con 10 ER] 10 meq PO DAILY 04/27/20 07/24/23 Cyclobenzaprine [Flexeril] 10 mg PO TID PRN 02/28/21 07/24/23 HYDROcodone/APAP 10-325MG [[place] 1 tab PO QID 02/28/21 07/24/23 10-325] Venlafaxine HCl [Effexor] 75 mg PO DAILY 02/28/21 07/24/23 modafiniL [Provigil] 200 mg PO BID 02/28/21 07/24/23 Aspirin EC [Ecotrin Low Dose] 81 mg PO DAILY 07/24/23 07/24/23 Cholecalciferol [Vitamin D3 (125 125 mcg PO DAILY 07/24/23 07/24/23 Mcg = 5000 Iu)] Dextroamphetamine/Amphetamine 20 mg PO BID 07/24/23 07/24/23 [Adderall] HYDROcodone bitartrate [Hysingla 60 mg PO DAILY 07/24/23 07/24/23 ER] Previous Rx's Medication Instructions Recorded Clopidogrel [Plavix] 75 mg PO DAILY #21 tab 07/25/23 Rosuvastatin [Crestor] 20 mg PO DAILY #60 tab 07/25/23 Fluconazole [Diflucan] 150 mg PO ONCE #5 tab 01/17/24 Nystatin 100,000 Unit/ml Susp 5 ml PO QID #200 ml 01/17/24 [Mycostatin Oral Susp] Allergies Allergy/AdvReac Type Severity Reaction Status Date / Time cyclobenzaprine Allergy Vomiting, Verified 11/08/23 11:50 [From Flexeril] but can take if she has to levofloxacin [From Levaquin] Allergy Anaphylaxis Verified 11/08/23 11:50 she thinks, but doesn't remember pregabalin [From Lyrica] Allergy "blacks Verified 11/08/23 11:50 out" amerix Allergy Unknown Uncoded 01/17/24 14:48 black olives Allergy Anaphylaxis Uncoded 11/08/23 11:50 Review of Systems ROS Statement: Those systems with pertinent positive or pertinent negative responses have been documented in the HPI. ROS Other: All systems not noted in ROS Statement are negative. Past Medical History Past Medical History: COPD Additional Past Medical History / Comment(s): chronic back pain, neuropathy, factor 5 bleeding disorder, tested positive for hep C in 2018 and was treated for it and has not tested positive since then. History of Any Multi-Drug Resistant Organisms: None Reported Past Surgical History: Hysterectomy, Tonsillectomy, Tubal Ligation Additional Past Surgical History / Comment(s): spinal tap, carpal tunnel bilat, facial surgery, Past Psychological History: Depression, PTSD Smoking Status: Former smoker, Vaper Past Alcohol Use History: None Reported Past Drug Use History: None Reported General Exam Limitations: no limitations General appearance: alert, in no apparent distress Head exam: Present: atraumatic, normocephalic, normal inspection Eye exam: Present: normal appearance, PERRL, EOMI. Absent: scleral icterus, conjunctival injection, periorbital swelling ENT exam: Present: mucous membranes moist, TM's normal bilaterally, normal external ear exam. Absent: normal oropharynx (Erythematous posterior pharynx with white exudates) Neck exam: Present: normal inspection, tenderness (Right submandibular swelling, tenderness noted), full ROM, lymphadenopathy. Absent: meningismus Respiratory exam: Present: normal lung sounds bilaterally. Absent: respiratory distress, wheezes, rales, rhonchi, stridor Cardiovascular Exam: Present: regular rate, normal rhythm, normal heart sounds. Absent: systolic murmur, diastolic murmur, rubs, gallop, clicks Course Vital Signs 01/17/24 01/17/24 01/17/24 14:49 15:53 16:00 Temperature 98 F Pulse Rate 100 79 84 Respiratory 18 18 16 Rate Blood Pressure 151/85 121/81 O2 Sat by Pulse 97 98 97 Oximetry 01/17/24 17:38 Temperature Pulse Rate 70 Respiratory 16 Rate Blood Pressure 132/80 O2 Sat by Pulse 96 Oximetry Medical Decision Making - Medical Decision Making Was pt. sent in by a medical professional or institution (, PA, COURT RECORDER, urgent care, hospital, or residential...) When possible be specific @ -No Did you speak to anyone other than the patient for history (EMS, parent, family, police, friend...)? What history was obtained from this source @ -No Did you review nursing and triage notes (agree or disagree)? Why? @ -I reviewed and agree with nursing and triage notes Were old charts reviewed (outside hosp., previous admission, EMS record, old EKG, old radiological studies, urgent care reports/EKG's, residential records)? Report findings @ -No old charts were reviewed Differential Diagnosis (chest pain, altered mental status, abdominal pain women, abdominal pain men, vaginal bleeding, weakness, fever, dyspnea, syncope, headache, dizziness, GI bleed, back pain, seizure, CVA, palpatations, mental health, musculoskeletal)? @ -Pharyngitis, candidiasis, retropharyngeal abscess, tonsillitis, COVID 19, RSV, influenza, pneumonia, acute bronchitis, URI, this list is not all inclusive EKG interpreted by me (3pts min.). @ -None X-rays interpreted by me (1pt min.). @ -None done CT interpreted by me (1pt min.). @ -CT soft tissue neck showing large gland on the right, no abscess or significant narrowing there is some edema noted U/S interpreted by me (1pt. min.). @ -None done What testing was considered but not performed or refused? (CT, X-rays, U/S, labs)? Why? @ -None What meds were considered but not given or refused? Why? @ -None Did you discuss the management of the patient with other professionals (professionals i.e. , PA, COURT RECORDER, lab, RT, psych nurse, social media intern, cell cleaner, teacher, compliance review officer, case management director)? Give summary @ -No Was smoking cessation discussed for >3mins.? @ -No Was critical care preformed (if so, how long)? @ -No Were there social determinants of health that impacted care today? How? (Homelessness, low income, unemployed, alcoholism, drug addiction, transportation, low edu. Level, literacy, decrease access to med. care, retirement, rehab)? @ -No Was there de-escalation of care discussed even if they declined (Discuss DNR or withdrawal of care, Hospice)? DNR status @ -No What co-morbidities impacted this encounter? (DM, HTN, Smoking, COPD, CAD, Cancer, CVA, ARF, Chemo, Hep., AIDS, mental health diagnosis, sleep apnea, morbid obesity)? @ -None Was patient admitted / discharged? Hospital course, mention meds given and route, prescriptions, significant lab abnormalities, going to OR and other [facility] info. @ -Discharged patient has obvious candidiasis patient strep was negative. CT did not reveal any significant findings she is swallowing secretions well has no hypoxia or difficulty breathing currently. She will be discharged on nystatin and Diflucan Undiagnosed new problem with uncertain prognosis? @ -No Drug Therapy requiring intensive monitoring for toxicity (Heparin, Nitro, Insulin, Cardizem)? @ -No Were any procedures done? @ -No Diagnosis/symptom? @ -Candidiasis oral, esophageal Acute, or Chronic, or Acute on Chronic? @Acute Uncomplicated (without systemic symptoms) or Complicated (systemic symptoms)? @ -Uncomplicated Side effects of treatment? @ -No Exacerbation, Progression, or Severe Exacerbation? @ -No Poses a threat to life or bodily function? How? (Chest pain, [place], [place], pneumonia, PE, COPD, DKA, ARF, appy, cholecystitis, CVA, Diverticulitis, Homicidal, Suicidal, threat to staff... and all critical care pts) @ -No - Lab Data Result diagrams: 01/17/24 15:37 01/17/24 15:37 Lab Results 01/17/24 01/17/24 01/17/24 Range/Units 15:37 15:37 15:37 WBC 16.4 H (3.8-10.6) k/uL RBC 4.21 (3.80-5.40) m/uL Hgb 12.9 (11.4-16.0) gm/dL Hct 39.3 (34.0-46.0) % MCV 93.3 (80.0-100.0) fL MCH 30.6 (25.0-35.0) pg MCHC 32.8 (31.0-37.0) g/dL RDW 12.3 (11.5-15.5) % Plt Count 268 (150-450) k/uL MPV 6.9 Neutrophils % 83 % Lymphocytes % 9 % Monocytes % 4 % Eosinophils % 1 % Basophils % 0 % Neutrophils # 13.7 H (1.3-7.7) k/uL Lymphocytes # 1.5 (1.0-4.8) k/uL Monocytes # 0.7 (0-1.0) k/uL Eosinophils # 0.2 (0-0.7) k/uL Basophils # 0.0 (0-0.2) k/uL Sodium 136 L (137-145) mmol/L Potassium 3.8 (3.5-5.1) mmol/L Chloride 102 (98-107) mmol/L Carbon Dioxide 28 (22-30) mmol/L Anion Gap 6 mmol/L BUN 12 (7-17) mg/dL Creatinine 0.51 L (0.52-1.04) mg/dL Est GFR (CKD-EPI)AfAm >90 (>60 ml/min/1.73 sqM) Est GFR (CKD-EPI)NonAf >90 (>60 ml/min/1.73 sqM) Glucose 104 H (74-99) mg/dL Plasma Lactic Acid Ajay 1.3 (0.7-2.0) mmol/L Calcium 8.6 (8.4-10.2) mg/dL Total Bilirubin 0.5 (0.2-1.3) mg/dL AST 22 (14-36) U/L ALT 14 (4-34) U/L Alkaline Phosphatase 83 (38-126) U/L Total Protein 6.3 (6.3-8.2) g/dL Albumin 3.8 (3.5-5.0) g/dL Group A Strep (PCR) (Not Detectd) 01/17/24 Range/Units 16:00 WBC (3.8-10.6) k/uL RBC (3.80-5.40) m/uL Hgb (11.4-16.0) gm/dL Hct (34.0-46.0) % MCV (80.0-100.0) fL MCH (25.0-35.0) pg MCHC (31.0-37.0) g/dL RDW (11.5-15.5) % Plt Count (150-450) k/uL MPV Neutrophils % % Lymphocytes % % Monocytes % % Eosinophils % % Basophils % % Neutrophils # (1.3-7.7) k/uL Lymphocytes # (1.0-4.8) k/uL Monocytes # (0-1.0) k/uL Eosinophils # (0-0.7) k/uL Basophils # (0-0.2) k/uL Sodium (137-145) mmol/L Potassium (3.5-5.1) mmol/L Chloride (98-107) mmol/L Carbon Dioxide (22-30) mmol/L Anion Gap mmol/L BUN (7-17) mg/dL Creatinine (0.52-1.04) mg/dL Est GFR (CKD-EPI)AfAm (>60 ml/min/1.73 sqM) Est GFR (CKD-EPI)NonAf (>60 ml/min/1.73 sqM) Glucose (74-99) mg/dL Plasma Lactic Acid Ajay (0.7-2.0) mmol/L Calcium (8.4-10.2) mg/dL Total Bilirubin (0.2-1.3) mg/dL AST (14-36) U/L ALT (4-34) U/L Alkaline Phosphatase (38-126) U/L Total Protein (6.3-8.2) g/dL Albumin (3.5-5.0) g/dL Group A Strep (PCR) NOT DETECTED (Not Detectd) Disposition Clinical Impression: Sole infection, oral, Sole infection, esophageal Disposition: HOME SELF-CARE Condition: Stable Instructions (If sedation given, give patient instructions): Oral Candidiasis (ED) Additional Instructions: Please return to the Emergency Department if symptoms worsen or any other concerns. Prescriptions: Fluconazole [Diflucan] 150 mg PO ONCE #5 tab Nystatin 100,000 Unit/ml Susp [Mycostatin Oral Susp] 5 ml PO QID #200 ml Is patient prescribed a controlled substance at d/c from ED?: No Referrals: Solange Godinez MD [Primary Care Provider] - 1-2 days Time of Disposition: 17:05
[2024-01-17] MEDS: NYSTATIN 100,000 UNIT/ML SUSP 500,000 UNIT/5 ML CUP PO STA (16:04)
[2024-01-17 16:12] LABS: ALT 14 U/L (4-34); AST 22 U/L (14-36); African American GFR (CKD) >90 (>60 ml/min/1.73 sqM); Albumin 3.8 g/dL (3.5-5.0); Alkaline Phosphatase 83 U/L (38-126); Anion Gap 6 mmol/L; Blood Urea Nitrogen 12 mg/dL (7-17); Calcium 8.6 mg/dL (8.4-10.2); Carbon Dioxide 28 mmol/L (22-30); Chloride 102 mmol/L (98-107); Glucose 104 mg/dL (74-99); Non-African American GFR(CKD) >90 (>60 ml/min/1.73 sqM); Potassium 3.8 mmol/L (3.5-5.1); Sodium 136 mmol/L (137-145); Total Bilirubin 0.5 mg/dL (0.2-1.3); Total Protein 6.3 g/dL (6.3-8.2)
--- NOTE | 2024-01-17 16:32 | CT ---
EXAMINATION TYPE: CT soft tissue neck w con DATE OF EXAM: 01/17/2024 COMPARISON: None HISTORY: Sore throat x4days. CT DLP: 380.3 mGycm CONTRAST: Patient injected with 100 ml mL of Isovue 300. TECHNIQUE: Axial images at 3 mm thick sections. Reconstructed images in the coronal plane and sagitt al plane are reviewed. FINDINGS: Limited CT sections are obtained the lung apices. The lung apices appear clear. CT neck: The torus tubarius and fossa of Rosenmuller are normal. [employer] spaces are normal. Para nasal sinuses and mastoid air cells are clear. Parotid glands appear normal and symmetrical. Submandibular glands are normal. Parapharyngeal space s are normal. No suspicious adenopathy is evident. The hypopharynx appears within normal limits. No rounding of the epiglottis is evident. Vallecula ran ears normal. Vocal cord level appear symmetrical. Thyroid as visualized is normal. Degenerative disc changes present C3-4 C4-5. Grade 1 spondylolisthesis of C4 on C5 maybe present. Pos terior endplate spurring is present C3-4 C4-5 C5-6. Prevertebral space appears mildly thickened IMPRESSION: 1. There may be some mild thickening of the prevertebral space in the hypopharynx region. Underlying mass or abscess is not identified. 2. Degenerative changes within the cervical spine. [facility], Workstation: [facility], 01/17/2024 4:30 PM
[2024-01-17 17:38] VITALS: RESP 16
[2024-01-17 17:40] VITALS: BP 132/80; PULSE 70
== END 2024-01-17 17:51 | disposition home or self-care (01) ==
LOC: EC 14:43
CPT/HCPCS: 36415; 70491; 80053; 83605; 85025; 87651; 96361; 96374; 99284

== ENCOUNTER 2024-02-09 09:23 | Emergency (ER) | payer MEDICARE, OTHER ==
[2024-02-09 09:29] VITALS: RESP 18
[2024-02-09] MEDS: KETOROLAC 15 MG/ML 1 ML VIAL IM STA (09:50)
[2024-02-09] MEDS: DEXAMETHASONE SOD PHOSPHATE 10 MG/ML 1 ML VIAL IM STA (09:51)
[2024-02-09] MEDS: ORPHENADRINE 30 MG/ML 2 ML VIAL IM STA (09:51)
--- NOTE | 2024-02-09 10:02 | ED ---
Extremity Problem HPI - General Chief complaint: Extremity Injury, Lower Stated complaint: R foot pain Time Seen by Provider: 02/09/24 09:30 Source: patient, RN notes reviewed Mode of arrival: ambulatory Limitations: no limitations - History of Present Illness Initial comments: This is a 58-year-old female who presents to the emergency department for right foot pain. States that for the last week she has had pain in the top of her right foot near the toes. States that the pain gets worse when she tries to walk and put pressure on the ball of the foot. Denies any injuries leading to the pain. However, today she fell as result of the pain but was able to catch herself before reaching the ground. She does take chronic pain medication daily and took an extra ibuprofen 800 mg today without any relief. Denies any history of similar problems in the past. MD Complaint: extremity pain - Related Data Home Medications Medication Instructions Recorded Confirmed ARIPiprazole [Abilify] 5 mg PO DAILY 04/27/20 07/24/23 Albuterol Inhaler [Ventolin Hfa 2 puff INHALATION RT-QID PRN 04/27/20 07/24/23 Inhaler] Furosemide [Lasix] 20 mg PO DAILY 04/27/20 07/24/23 Meloxicam 15 mg PO DAILY 04/27/20 07/24/23 Montelukast Sodium [Singulair] 10 mg PO DAILY 04/27/20 07/24/23 Pantoprazole [Protonix] 40 mg PO DAILY 04/27/20 07/24/23 Potassium Chloride [Klor-Con 10 ER] 10 meq PO DAILY 04/27/20 07/24/23 Cyclobenzaprine [Flexeril] 10 mg PO TID PRN 02/28/21 07/24/23 HYDROcodone/APAP 10-325MG [[place] 1 tab PO QID 02/28/21 07/24/23 10-325] Venlafaxine HCl [Effexor] 75 mg PO DAILY 02/28/21 07/24/23 modafiniL [Provigil] 200 mg PO BID 02/28/21 07/24/23 Aspirin EC [Ecotrin Low Dose] 81 mg PO DAILY 07/24/23 07/24/23 Cholecalciferol [Vitamin D3 (125 125 mcg PO DAILY 07/24/23 07/24/23 Mcg = 5000 Iu)] Dextroamphetamine/Amphetamine 20 mg PO BID 07/24/23 07/24/23 [Adderall] HYDROcodone bitartrate [Hysingla 60 mg PO DAILY 07/24/23 07/24/23 ER] Previous Rx's Medication Instructions Recorded Clopidogrel [Plavix] 75 mg PO DAILY #21 tab 07/25/23 Rosuvastatin [Crestor] 20 mg PO DAILY #60 tab 07/25/23 Fluconazole [Diflucan] 150 mg PO ONCE #5 tab 01/17/24 Nystatin 100,000 Unit/ml Susp 5 ml PO QID #200 ml 01/17/24 [Mycostatin Oral Susp] predniSONE 50 mg PO DAILY 5 Days #5 tab 02/09/24 Allergies Allergy/AdvReac Type Severity Reaction Status Date / Time cyclobenzaprine Allergy Vomiting, Verified 11/08/23 11:50 [From Flexeril] but can take if she has to levofloxacin [From Levaquin] Allergy Anaphylaxis Verified 11/08/23 11:50 she thinks, but doesn't remember pregabalin [From Lyrica] Allergy "blacks Verified 11/08/23 11:50 out" gabapentin AdvReac Unknown Verified 02/09/24 09:25 amerix Allergy Unknown Uncoded 01/17/24 14:48 black olives Allergy Anaphylaxis Uncoded 11/08/23 11:50 Review of Systems ROS Statement: Those systems with pertinent positive or pertinent negative responses have been documented in the HPI. ROS Other: All systems not noted in ROS Statement are negative. Past Medical History Past Medical History: COPD Additional Past Medical History / Comment(s): chronic back pain, neuropathy, factor 5 bleeding disorder, tested positive for hep C in 2018 and was treated for it and has not tested positive since then. History of Any Multi-Drug Resistant Organisms: None Reported Past Surgical History: Hysterectomy, Tonsillectomy, Tubal Ligation Additional Past Surgical History / Comment(s): spinal tap, carpal tunnel bilat, facial surgery, Past Psychological History: Depression, PTSD Smoking Status: Former smoker, Vaper Past Alcohol Use History: None Reported Past Drug Use History: None Reported General Exam Limitations: no limitations General appearance: alert, in no apparent distress Head exam: Present: atraumatic, normocephalic, normal inspection Respiratory exam: Present: normal lung sounds bilaterally. Absent: respiratory distress, wheezes, rales, rhonchi, stridor Cardiovascular Exam: Present: regular rate, normal rhythm, normal heart sounds. Absent: systolic murmur, diastolic murmur, rubs, gallop, clicks Extremities exam: Present: other (Tenderness to the top of the right foot near the toes. No deformities, swelling, or ecchymosis. 2+ DP and PT pulses.) Neurological exam: Present: alert, oriented X3, CN II-XII intact Psychiatric exam: Present: normal affect, normal mood Skin exam: Present: warm, dry, intact, normal color. Absent: rash Course Vital Signs 02/09/24 02/09/24 09:25 10:50 Temperature 97.7 F 97.8 F Pulse Rate 78 74 Respiratory 18 18 Rate Blood Pressure 160/81 151/77 O2 Sat by Pulse 99 99 Oximetry Medical Decision Making - Medical Decision Making This is a 58-year-old female who presents to the emergency department for right foot pain. Was pt. sent in by a medical professional or institution? @ -No Did you speak to anyone other than the patient for history? @ -No Did you review nursing and triage notes? @ -Yes, and I agree, it is accurate with regards to the patient's symptoms. Were old charts reviewed? @ -No Differential Diagnosis? @ -Differential Musculoskeletal: Muscular strain, contusion, ligament sprain, fracture, arthritis, septic arthritis, bursitis, cellulitis, muscle spasm, nerve compression, DVT, arterial occlusion, herpes zoster, electrolyte abnormality, tumor.... This is not meant to be in all inclusive list EKG interpreted by me (3pts min.)? @ -Not obtained X-rays interpreted by me (1pt min.)? @ -X-ray of the right foot obtained. My interpretation identifies no acute fractures. CT interpreted by me (1pt min.)? @ -Not obtained U/S interpreted by me (1pt. min.)? @ -Not obtained What testing was considered but not performed? (CT, X-rays, U/S, labs)? Why? @ -None What meds were considered but not given? Why? @ -None Did you discuss the management of the patient with other professionals? @ -No Did you reconcile home meds? @ -No Was smoking cessation discussed for >3mins.? @ -No Was critical care preformed (if so, how long)? @ -No Were there social determinants of health that impacted care today? How? (Homelessness, low income, unemployed, alcoholism, drug addiction, transportation, low edu. Level, literacy, decrease access to med. care, senior living, rehab)? @ -No Was there de-escalation of care discussed even if they declined? (Discuss DNR or withdrawal of care, Hospice)? @ -No What co-morbidities impacted this encounter? (DM, HTN, Smoking, COPD, CAD, Cancer, CVA, Hep., AIDS, mental health diagnosis, sleep apnea, morbid obesity)? @ -Chronic pain Was patient admitted / discharged? @ -Discharged. X-ray of the right foot demonstrates soft tissue swelling without any other acute process. Findings reviewed with the patient. Pain medication administered in the emergency department. Prescription for 5-day course of prednisone provided for any inflammatory component. Hard sole postoperative shoe provided as well for support. Advised follow-up with podiatry for further evaluation. Patient discharged home in stable condition. Case discussed with ED attending Dr. Mayo. Return precautions reviewed in depth, the patient is instructed to return to the emergency department with any new, worsening, or concerning symptoms. Patient verbalized understanding. Undiagnosed new problem with uncertain prognosis? @ -None Drug Therapy requiring intensive monitoring for toxicity (Heparin, Nitro, In sulin, Cardizem)? @ -None Were any procedures done? @ -None Diagnosis/symptom? @ -Right foot pain Acute, or Chronic, or Acute on Chronic? @ -Acute Uncomplicated (without systemic symptoms) or Complicated (systemic symptoms)? @ -Uncomplicated Side effects of treatment? @ -None Exacerbation, Progression, or Severe Exacerbation] @ -Not applicable Poses a threat to life or bodily function? @ -No - Radiology Data Radiology results: report reviewed, image reviewed Disposition Clinical Impression: Right foot pain Disposition: HOME SELF-CARE Instructions (If sedation given, give patient instructions): Arthralgia (ED) Additional Instructions: Return to the emergency department with any new, worsening, or concerning symptoms. Take the prednisone daily for 5 days. You can apply the diclofenac gel provided 4 times daily to the most painful areas. Follow-up with Dr. Bolanos. Prescriptions: predniSONE 50 mg PO DAILY 5 Days #5 tab Is patient prescribed a controlled substance at d/c from ED?: No Referrals: Octavio-Gilacke,Solange, MD [Primary Care Provider] - 1-2 days Asa Bolanos DPM [STAFF PHYSICIAN] - 1-2 days Time of Disposition: 10:43
[2024-02-09] MEDS: DICLOFENAC SODIUM GEL 50 GM TUBE TOPICAL STA (10:03)
[2024-02-09] MEDS: HYDROcodone/APAP 10-325MG 1 EACH TAB PO ONE (10:19)
--- NOTE | 2024-02-09 10:19 | XR ---
EXAMINATION TYPE: XR foot complete RT DATE OF EXAM: 02/09/2024 10:06 AM COMPARISON: 06/15/2020 CLINICAL INDICATION: Female, 58 years old with history of Pain, TECHNIQUE: XR foot complete RT view(s) obtained. FINDINGS: No acute fracture or dislocation evident. Mild soft tissue prominence over the dorsum of the foot is present. Very tiny plantar calcaneal heel spur is present. Osseous structure alignment appears normal . Mild joint space narrowing is at the proximal interphalangeal joint spaces. Follow up exams can be performed 7-10 days from acute trauma for continued pain. IMPRESSION: 1. No acute osseous abnormality radiographically apparent. 2. Suggestion of mild soft tissue swelling distal dorsal right foot [facility], , 02/09/2024 10:16 AM
[2024-02-09 10:51] VITALS: BP 151/77; PULSE 74; TEMP 97.8
== END 2024-02-09 10:50 | disposition home or self-care (01) ==
LOC: EC 09:23
DX: M79.671 Pain in right foot (principal); F17.290 Nicotine dependence, other tobacco product, uncomplicated; Z88.8 Allergy status to other drugs, medicaments and biological substances; Z88.1 Allergy status to other antibiotic agents
CPT/HCPCS: 73630; 99283; 96372 ×3; J1100; J2360; J1885

== ENCOUNTER 2024-05-26 23:17 | Emergency (ER) | payer OTHER, MEDICARE ==
[2024-05-26 23:29] VITALS: RESP 18
--- NOTE | 2024-05-27 00:32 | ED ---
Neck Injury/Pain HPI - General Chief Complaint: Neck Pain/Injury Stated Complaint: fall, [facility] Time Seen by Provider: 05/27/24 00:25 Source: patient Mode of arrival: ambulatory Limitations: no limitations - History of Present Illness Initial Comments: 58-year-old female presenting to the ER for evaluation of fall at work. Patient states she works at [employer] and accidentally tripped over a basket that was on the floor. States she landed on her left forearm and hit the front of her forehead on a safe that was laid out in front of her. She also endorses an abrasion to the left knee. States she is able to ambulate and move all extremities. Denies loss of consciousness. Denies blood thinners. Denies headache, vision changes, nausea, vomiting. States her employer made her come to the ER for IHS testing. - Related Data Home Medications Medication Instructions Recorded Confirmed ARIPiprazole [Abilify] 5 mg PO DAILY 04/27/20 07/24/23 Albuterol Inhaler [Ventolin Hfa 2 puff INHALATION RT-QID PRN 04/27/20 07/24/23 Inhaler] Furosemide [Lasix] 20 mg PO DAILY 04/27/20 07/24/23 Meloxicam 15 mg PO DAILY 04/27/20 07/24/23 Montelukast Sodium [Singulair] 10 mg PO DAILY 04/27/20 07/24/23 Pantoprazole [Protonix] 40 mg PO DAILY 04/27/20 07/24/23 Potassium Chloride [Klor-Con 10 ER] 10 meq PO DAILY 04/27/20 07/24/23 Cyclobenzaprine [Flexeril] 10 mg PO TID PRN 02/28/21 07/24/23 HYDROcodone/APAP 10-325MG [[place] 1 tab PO QID 02/28/21 07/24/23 10-325] Venlafaxine HCl [Effexor] 75 mg PO DAILY 02/28/21 07/24/23 modafiniL [Provigil] 200 mg PO BID 02/28/21 07/24/23 Aspirin EC [Ecotrin Low Dose] 81 mg PO DAILY 07/24/23 07/24/23 Cholecalciferol [Vitamin D3 (125 125 mcg PO DAILY 04/19/24 04/19/24 Mcg = 5000 Iu)] Dextroamphetamine/Amphetamine 20 mg PO BID 07/24/23 07/24/23 [Adderall] HYDROcodone bitartrate [Hysingla 60 mg PO DAILY 07/24/23 07/24/23 ER] Previous Rx's Medication Instructions Recorded Clopidogrel [Plavix] 75 mg PO DAILY #21 tab 07/25/23 Rosuvastatin [Crestor] 20 mg PO DAILY #60 tab 07/25/23 Fluconazole [Diflucan] 150 mg PO ONCE #5 tab 01/17/24 Nystatin 100,000 Unit/ml Susp 5 ml PO QID #200 ml 01/17/24 [Mycostatin Oral Susp] predniSONE 50 mg PO DAILY 5 Days #5 tab 02/09/24 Allergies Allergy/AdvReac Type Severity Reaction Status Date / Time cyclobenzaprine Allergy Vomiting, Verified 05/26/24 23:29 [From Flexeril] but can take if she has to levofloxacin [From Levaquin] Allergy Anaphylaxis Verified 05/26/24 23:29 she thinks, but doesn't remember pregabalin [From Lyrica] Allergy "blacks Verified 05/26/24 23:29 out" gabapentin AdvReac Unknown Verified 05/26/24 23:29 amerix Allergy Unknown Uncoded 05/26/24 23:29 black olives Allergy Anaphylaxis Uncoded 05/26/24 23:29 Review of Systems ROS Statement: Those systems with pertinent positive or pertinent negative responses have been documented in the HPI. ROS Other: All systems not noted in ROS Statement are negative. Past Medical History Past Medical History: COPD Additional Past Medical History / Comment(s): chronic back pain, neuropathy, factor 5 bleeding disorder, tested positive for hep C in 2018 and was treated for it and has not tested positive since then. History of Any Multi-Drug Resistant Organisms: None Reported Past Surgical History: Hysterectomy, Tonsillectomy, Tubal Ligation Additional Past Surgical History / Comment(s): spinal tap, carpal tunnel bilat, facial surgery, Past Psychological History: Depression, PTSD Smoking Status: Former smoker, Vaper Past Alcohol Use History: None Reported Past Drug Use History: None Reported General Exam Limitations: no limitations General appearance: alert, in no apparent distress Head exam: Present: atraumatic, normocephalic, normal inspection Eye exam: Present: normal appearance, PERRL, EOMI. Absent: scleral icterus, conjunctival injection, periorbital swelling ENT exam: Present: normal exam, mucous membranes moist Neck exam: Present: normal inspection. Absent: tenderness, meningismus, lymphadenopathy Respiratory exam: Present: normal lung sounds bilaterally. Absent: respiratory distress, wheezes, rales, rhonchi, stridor Cardiovascular Exam: Present: regular rate, normal rhythm, normal heart sounds. Absent: systolic murmur, diastolic murmur, rubs, gallop, clicks Extremities exam: Present: normal inspection, full ROM, normal capillary refill. Absent: tenderness, pedal edema, joint swelling, calf tenderness Neurological exam: Present: alert, oriented X3, CN II-XII intact Psychiatric exam: Present: normal affect, normal mood Skin exam: Present: warm, dry, intact, normal color. Absent: rash Course Vital Signs 05/26/24 23:23 Temperature 97.8 F Pulse Rate 85 Respiratory 18 Rate Blood Pressure 145/85 O2 Sat by Pulse 97 Oximetry Medical Decision Making - Medical Decision Making Was pt. sent in by a medical professional or institution (, PA, AUDIO/VISUAL OPERATOR, urgent care, hospital, or senior living...) When possible be specific @ -Sent by employer for IHS Did you speak to anyone other than the patient for history (EMS, parent, family, police, friend...)? What history was obtained from this source @ -No Did you review nursing and triage notes (agree or disagree)? Why? @ -I reviewed and agree with nursing and triage notes Were old charts reviewed (outside hosp., previous admission, EMS record, old EKG, old radiological studies, urgent care reports/EKG's, senior living records)? Report findings @ -No old charts were reviewed Differential Diagnosis (chest pain, altered mental status, abdominal pain women, abdominal pain men, vaginal bleeding, weakness, fever, dyspnea, syncope, headache, dizziness, GI bleed, back pain, seizure, CVA, palpatations, mental health, musculoskeletal)? @ -Differential Musculoskeletal Muscular strain, contusion, ligament sprain, fracture, arthritis, septic arthritis, bursitis, cellulitis, muscle spasm, nerve compression, DVT, arterial occlusion, herpes zoster, electrolyte abnormality, tumor.... This is not meant to be in all inclusive list EKG interpreted by me (3pts min.). @ -None X-rays interpreted by me (1pt min.). @ -None done CT interpreted by me (1pt min.). @ -None done U/S interpreted by me (1pt. min.). @ -None done What testing was considered but not performed or refused? (CT, X-rays, U/S, labs)? Why? @ -Imaging deferred due to low clinical suspicion for fracture at this time What meds were considered but not given or refused? Why? @ -None Did you discuss the management of the patient with other professionals (professionals i.e. , PA, AUDIO/VISUAL OPERATOR, lab, RT, psych nurse, outreach and education social worker, jewelry bench molder, teacher, marketing officer, nurse outreach case manager)? Give summary @ -No Was smoking cessation discussed for >3mins.? @ -No Was critical care preformed (if so, how long)? @ -No Were there social determinants of health that impacted care today? How? (Homelessness, low income, unemployed, alcoholism, drug addiction, transportation, low edu. Level, literacy, decrease access to med. care, senior living, rehab)? @ -No Was there de-escalation of care discussed even if they declined (Discuss DNR or withdrawal of care, Hospice)? DNR status @ -No What co-morbidities impacted this encounter? (DM, HTN, Smoking, COPD, CAD, Cancer, CVA, ARF, Chemo, Hep., AIDS, mental health diagnosis, sleep apnea, morbid obesity)? @ -None Was patient admitted / discharged? Hospital course, mention meds given and route, prescriptions, significant lab abnormalities, going to OR and other pertinent info. @ -Discharge. This is a 58-year-old female sent from work status post mechanical fall. Patient is endorsing mild pain in left forearm and left knee. Also did not hit her head however denies loss of consciousness or blood thinners. Physical examination is unremarkable. No obvious signs of trauma. Full range of motion of all extremities. Patient able to ambulate. Imaging deferred at this time. Appropriate return precautions and supportive care discussed. Case was discussed with the ED attending Dr. Chun. Undiagnosed new problem with uncertain prognosis? @ -No Drug Therapy requiring intensive monitoring for toxicity (Heparin, Nitro, Insulin, Cardizem)? @ -No Were any procedures done? @ -No Diagnosis/symptom? @ -Mechanical fall Acute, or Chronic, or Acute on Chronic? @ -Acute Uncomplicated (without systemic symptoms) or Complicated (systemic symptoms)? @ -Uncomplicated Side effects of treatment? @ -No Exacerbation, Progression, or Severe Exacerbation? @ -No Poses a threat to life or bodily function? How? (Chest pain, [place], [place], pneumonia, PE, COPD, DKA, ARF, appy, cholecystitis, CVA, Diverticulitis, Homicidal, Suicidal, threat to staff... and all critical care pts) @ -No Disposition Clinical Impression: Fall Disposition: HOME SELF-CARE Condition: Stable Additional Instructions: Please return to the Emergency Department if symptoms worsen or any other concerns. Is patient prescribed a controlled substance at d/c from ED?: No Referrals: Solange Godinez MD [Primary Care Provider] - 1-2 days Time of Disposition: 00:31
[2024-05-27 00:40] VITALS: BP 138/88; PULSE 81; TEMP 98.1
== END 2024-05-27 00:36 | disposition home or self-care (01) ==
LOC: EC 23:17
DX: S80.212A Abrasion, left knee, initial encounter (principal); M79.632 Pain in left forearm; F17.290 Nicotine dependence, other tobacco product, uncomplicated; Z88.1 Allergy status to other antibiotic agents; Z88.8 Allergy status to other drugs, medicaments and biological substances; W01.0XXA Fall on same level from slipping, tripping and stumbling without subsequent striking against object, initial encounter; Y99.0 Civilian activity done for income or pay
CPT/HCPCS: 99283

== ENCOUNTER 2024-06-19 19:45 | Outpatient (CLI) | payer MEDICARE, OTHER ==
--- NOTE | 2024-06-21 14:13 | P.PCN ---
Date of Procedure: 06/19/24 Operative Findings: CPAP titration report Pertinent history This is a 58-year-old female patient with history of chronic hypersomnia and sleepiness. 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 She has been treated for comorbid insomnia in the past and the patient is still maintained on a combination of Provigil 200 mg twice a day and Adderall 20 mg twice a day. This regimen was working for the patient for quite some time and currently she feels that she is getting more sleepy. She has difficulties with focusing and concentrating. She has undergone neurologic workup back in July 2023 including MRI of the brain that showed no significant abnormalities. No history of any CVA. Blood work has been essentially within normal limits. Noted the patient has been studied for sleep apnea in the past and the patient had a polysomnography back in 2016 that showed only a mild component of AICHA. Since then, the patient has gained approximately 50 pounds and there is a concern for development of significant obstructive sleep apnea. She has chronic depression maintained on a combination of Abilify and Lexapro. She has chronic pain. The patient underwent a polysomnography on 05/15/2024 and the patient was found to have moderate to severe AICHA with an AHI of 21 and based on that, the patient is coming in to undergo a CPAP titration. Pertinent physical findings The weight is 175 pounds with a body mass index of 31 Technical description The patient was studied using a standard complex polysomnography protocol that included recording of the Lead II EKG, Central, occipital and frontal EEG, right and left outer canthus EOG, submental EMG, right and left anterior tibialis EMG, respiratory airflow by thermocouple and or pressure/flow transducer, respiratory efforts by abdominal and thoracic PVDF belts, oxygen saturation by cable oximetry. Position by observation synchronized the PSG. Equipment used: [place]. Stepwise CPAP titration was done to eliminate all obstructive respiratory events Sleep architecture The total recording duration was 378.5 minutes. The total sleep time was 357.5 minutes. The overall sleep efficiency was 94.5%. The patient's sleep latency was 8.5 minutes. The patient's latency to REM sleep was 115.5 minutes. The sleep architecture was characterized by 5.6% stage I, 76.1% stage II, 0.6% stage III and a total of 21.4% REM sleep. The wake after sleep onset time was 13.5 minutes. The total arousal index was 6.7. CPAP titration The patient was not on CPAP therapy and the initial pressure was at 7 cm of water and the pressure was gradually increased by intervals of 1 cm to reach a maximum CPAP pressure of 11 cm of water. This was successful titration. I carefully reviewed the CPAP titration taking account the patient's sleep stage and body position. The evaluation and a titration was done at various body position including supine body position and the patient was side) and non-REM sleep. At a pressure of 11 cm of water, there was adequate elimination of the obstructive respiratory events without any significant desaturations. Sleep arousal events The patient encountered a total of 40 arousals with a arousal index of 6.7. Respiratory arousal index was 0. Periodic limb movement summary The patient had a total of 19 periodic leg movement activity with an index of 3.2. The patient had an additional 7 periodic limb movement with arousals with a PLM arousal index of 1.2. Cardiac summary The average heart rate was 67 with a minimum heart rate of 64 Assessment Obstructive sleep apnea, moderate in severity with an AHI of 21. The patient has developed worsening in the severity of her sleep apnea since her original study back in 2017. The patient underwent a successful CPAP titration Mild nocturnal oxygen desaturations, improved with CPAP therapy Chronic hypersomnia with residual sleepiness despite being on a combination of Provigil and Adderall Chronic depression maintained on a combination of Abilify and Lexapro Chronic pain Chronic COPD with an FEV1 of 71% of predicted Plan Initiate CPAP therapy at a pressure of 11 cm of water with a C-Flex of 3. The patient will be provided with appropriate mask interface. The patient was fitted to a medium size AirFit N20 nasal mask and further adjustments on the mask interface will be done based on the patient's overall clinical response and compliancy. The patient was seen back in 30 to 90 days for another compliancy check. Will continue to follow.
== END 2024-06-20 05:30 | disposition home or self-care (01) ==
LOC: 3 N SLEEP 19:45
PROVIDERS: ATTEND Internal Medicine Critical Care Medicine
DX: G47.33 Obstructive sleep apnea (adult) (pediatric) (principal); G89.29 Other chronic pain; J44.9 Chronic obstructive pulmonary disease, unspecified; F32.A Depression, unspecified; Z99.89 Dependence on other enabling machines and devices; Z88.8 Allergy status to other drugs, medicaments and biological substances; Z88.1 Allergy status to other antibiotic agents; Z91.048 Other nonmedicinal substance allergy status; Z91.09 Other allergy status, other than to drugs and biological substances; Z91.018 Allergy to other foods
CPT/HCPCS: 95811

== ENCOUNTER 2024-08-15 11:15 | Emergency (ER) | payer MEDICARE, OTHER ==
[2024-08-15 11:22] VITALS: RESP 18
--- NOTE | 2024-08-15 11:44 | ED ---
General Adult HPI - General Chief complaint: Shortness of Breath Stated complaint: SOB,Congestion Time Seen by Provider: 08/15/24 11:20 Source: patient, RN notes reviewed, old records reviewed Mode of arrival: ambulatory Limitations: no limitations - History of Present Illness Initial comments: This is a 58-year-old female who presents to the emergency department complaining that she has been coughing since yesterday. Patient states she is also little short of breath. Patient states she has not been able to cough anything up however. Patient denies any chest pain. Patient denies any palpitation. Patient states she had a low-grade fever of 100.2. Patient states she quit smoking 3 years ago but she continues to vape. Patient denies being on any medications however she states she does go to the pain clinic for chronic pain. Patient denies any new area of pain today - Related Data Home Medications Medication Instructions Recorded Confirmed ARIPiprazole [Abilify] 5 mg PO DAILY 04/27/20 08/15/24 Albuterol Inhaler [Ventolin Hfa 2 puff INHALATION RT-QID PRN 04/27/20 08/15/24 Inhaler] Furosemide [Lasix] 20 mg PO DAILY 04/27/20 08/15/24 Meloxicam 15 mg PO DAILY 04/27/20 08/15/24 Montelukast Sodium [Singulair] 10 mg PO DAILY 04/27/20 08/15/24 Pantoprazole [Protonix] 40 mg PO DAILY 04/27/20 08/15/24 HYDROcodone/APAP 10-325MG [[place] 1 tab PO QID 02/28/21 08/15/24 10-325] modafiniL [Provigil] 200 mg PO BID@0630,1400 02/28/21 08/15/24 Dextroamphetamine/Amphetamine 20 mg PO BID@0630,1400 07/24/23 08/15/24 [Adderall] Escitalopram [Lexapro] 20 mg PO DAILY 08/15/24 08/15/24 HYDROcodone bitartrate [[place] 40 mg PO DAILY 08/15/24 08/15/24 ER] Rosuvastatin [Crestor] 20 mg PO DAILY 08/15/24 08/15/24 Allergies Allergy/AdvReac Type Severity Reaction Status Date / Time cyclobenzaprine Allergy Vomiting, Verified 08/15/24 12:47 [From Flexeril] but can take if she has to levofloxacin [From Levaquin] Allergy Anaphylaxis Verified 08/15/24 12:47 she thinks, but doesn't remember pregabalin [From Lyrica] Allergy "blacks Verified 08/15/24 12:47 out" gabapentin AdvReac Unknown Verified 08/15/24 12:47 amerix Allergy Unknown Uncoded 08/15/24 12:47 black olives Allergy Anaphylaxis Uncoded 08/15/24 12:47 Review of Systems ROS Statement: Those systems with pertinent positive or pertinent negative responses have been documented in the HPI. ROS Other: All systems not noted in ROS Statement are negative. Past Medical History Past Medical History: COPD Additional Past Medical History / Comment(s): chronic back pain, neuropathy, factor 5 bleeding disorder, tested positive for hep C in 2018 and was treated for it and has not tested positive since then. History of Any Multi-Drug Resistant Organisms: None Reported Past Surgical History: Hysterectomy, Tonsillectomy, Tubal Ligation Additional Past Surgical History / Comment(s): spinal tap, carpal tunnel bilat, facial surgery, Past Psychological History: Depression, PTSD Smoking Status: Former smoker, Vaper Past Alcohol Use History: None Reported Past Drug Use History: None Reported General Exam - General Exam Comments Initial Comments: GENERAL: Patient is well-developed and well-nourished. Patient is nontoxic and well- hydrated and is in mild distress. ENT: Neck is soft and supple. No significant lymphadenopathy is noted. Oropharynx is clear. Moist mucous membranes. Neck has full range of motion without eliciting any pain. There is no thyroid enlargement and no masses were felt. EYES: The sclera were anicteric and conjunctiva were pink and moist. Extraocular movements were intact and pupils were equal round and reactive to light. Eyelids were unremarkable. PULMONARY: Unlabored respirations. Good breath sounds bilaterally. Patient has rhonchi bilateral bases CARDIOVASCULAR: There is a regular rate and rhythm without any murmurs gallops or rubs. ABDOMEN: Soft and nontender with normal bowel sounds. No palpable organomegaly was noted. There is no palpable pulsatile mass. SKIN: Skin is clear with no lesions or rashes and otherwise unremarkable. NEUROLOGIC: Patient is alert and oriented x3. Cranial nerves II through XII are grossly intact. Motor and sensory are also intact. Normal speech, volume and content. Symmetrical smile. MUSCULOSKELETAL: Normal extremities with adequate strength and full range of motion. LYMPHATICS: No significant lymphadenopathy is noted PSYCHIATRIC: Normal psychiatric evaluation. Limitations: no limitations Course Vital Signs 08/15/24 08/15/24 08/15/24 11:18 11:57 12:18 Temperature 98.5 F 99.5 F Pulse Rate 92 79 Respiratory 18 18 Rate Blood Pressure 172/146 136/88 O2 Sat by Pulse 98 97 Oximetry 08/15/24 08/15/24 12:45 13:25 Temperature 98.4 F Pulse Rate 86 Respiratory 18 Rate Blood Pressure 138/91 O2 Sat by Pulse 95 Oximetry Medical Decision Making - Medical Decision Making EKG is interpreted by myself. EKG shows a sinus rhythm at 83 bpm [place] interval 160 QRS is 90 QT interval 4 4 QTc is [address] segment elevation or depression Was pt. sent in by a medical professional or institution (, DARY, WASHING MACHINE ASSEMBLER, urgent care, hospital, or residential...) When possible be specific @ -No Did you speak to anyone other than the patient for history (EMS, parent, family, police, friend...)? What history was obtained from this source @ -No Did you review nursing and triage notes (agree or disagree)? Why? @ -I reviewed and agree with nursing and triage notes Were old charts reviewed (outside hosp., previous admission, EMS record, old EKG, old radiological studies, urgent care reports/EKG's, residential records)? Report findings @ -No old charts were reviewed Differential Diagnosis? @ -RSV, COVID, influenza A, influenza B, bronchitis, pneumonia, this is not an all-inclusive list EKG interpreted by me (3pts min.). @ -As above X-rays interpreted by me (1pt min.). @ -Chest x-ray shows no acute abnormality. CT interpreted by me (1pt min.). @ -None done U/S interpreted by me (1pt. min.). @ -None done What testing was considered but not performed or refused? (CT, X-rays, U/S, labs)? Why? @ -None What meds were considered but not given or refused? Why? @ -None Did you discuss the management of the patient with other professionals (professionals i.e. , PA, WASHING MACHINE ASSEMBLER, lab, RT, psych nurse, social media marketer, casket liner, teacher, landcare officer, outpatient case manager)? Give summary @ -No Was smoking cessation discussed for >3mins.? @ -No Was critical care preformed (if so, how long)? @ -No Were there social determinants of health that impacted care today? How? (Homelessness, low income, unemployed, alcoholism, drug addiction, transportation, low edu. Level, literacy, decrease access to med. care, detention, rehab)? @ -No Was there de-escalation of care discussed even if they declined (Discuss DNR or withdrawal of care, Hospice)? DNR status @ -No What co-morbidities impacted this encounter? (DM, HTN, Smoking, COPD, CAD, Cancer, CVA, ARF, Chemo, Hep., AIDS, mental health diagnosis, sleep apnea, morbid obesity)? @ -None Was patient admitted / discharged? Hospital course, mention meds given and route, prescriptions, significant lab abnormalities, going to OR and other pertinent info. @ -Patient's lab work was normal. X-ray was normal. Patient had a negative viral swab for influenza COVID and RSV. Undiagnosed new problem with uncertain prognosis? @ -No Drug Therapy requiring intensive monitoring for toxicity (Heparin, Nitro, Insulin, Cardizem)? @ -No Were any procedures done? @ -No Diagnosis/symptom? @ -Acute bronchitis Acute, or Chronic, or Acute on Chronic? @ -Acute Uncomplicated (without systemic symptoms) or Complicated (systemic symptoms)? @ -Complicated Side effects of treatment? @ -No Exacerbation, Progression, or Severe Exacerbation? @ -No Poses a threat to life or bodily function? How? (Chest pain, [place], MS, pneumonia, PE, COPD, DKA, ARF, appy, cholecystitis, CVA, Diverticulitis, Homicidal, Suicidal, threat to staff... and all critical care pts) @ -No - Lab Data Result diagrams: 08/15/24 12:07 08/15/24 12:07 Lab Results 08/15/24 08/15/24 08/15/24 Range/Units 12:03 12:07 12:07 WBC 7.52 (4.50-10.00) 10*3/uL RBC 4.09 L (4.10-5.20) 10*6/uL Hgb 12.8 (12.0-15.0) g/dL Hct 36.9 L (37.2-46.3) % MCV 90.2 (80.0-97.0) fL MCH 31.3 (27.0-32.0) pg MCHC 34.7 (32.0-37.0) g/dL Plt Count 314 (140-440) 10*3/uL MPV 9.1 L (9.5-12.2) fL Immature Gran % (Auto) 0.3 % Neutrophils % 68.9 % Lymphocytes % 18.8 % Monocytes % 8.0 % Eosinophils % 2.9 % Basophils % 1.1 % Immature Gran # 0.02 (0.00-0.04) 10*3/uL Neutrophils # 5.19 (1.80-7.70) 10*3/uL Lymphocytes # 1.41 (0.90-5.00) 10*3/uL Monocytes # 0.60 (0.20-1.00) 10*3/uL Eosinophils # 0.22 (0.04-0.35) 10*3/uL Basophils # 0.08 (0.00-0.10) 10*3/uL D-Dimer (<0.60) mg/L FEU Sodium 138 (137-145) mmol/L Potassium 3.9 (3.5-5.1) mmol/L Chloride 99 (98-107) mmol/L Carbon Dioxide 30 (22-30) mmol/L Anion Gap 9 mmol/L BUN 8 (7-17) mg/dL Creatinine 0.52 (0.52-1.04) mg/dL Est GFR (CKD-EPI)AfAm >90 (>60 ml/min/1.73 sqM) Est GFR (CKD-EPI)NonAf >90 (>60 ml/min/1.73 sqM) Glucose 132 H (74-99) mg/dL Plasma Lactic Acid Ajay (0.7-2.0) mmol/L Calcium 9.2 (8.4-10.2) mg/dL Magnesium 1.9 (1.6-2.3) mg/dL Total Bilirubin 0.5 (0.2-1.3) mg/dL AST 22 (14-36) U/L ALT 16 (4-34) U/L Alkaline Phosphatase 76 (38-126) U/L Troponin I (0.000-0.034) ng/mL Total Protein 6.7 (6.3-8.2) g/dL Albumin 4.2 (3.5-5.0) g/dL Influenza Type A (PCR) Not Detected (Not Detectd) Influenza Type B (PCR) Not Detected (Not Detectd) RSV (PCR) Not Detected (Not Detectd) SARS-CoV-2 (PCR) Not Detected (Not Detectd) 08/15/24 08/15/24 08/15/24 Range/Units 12:07 12:07 12:18 WBC (4.50-10.00) 10*3/uL RBC (4.10-5.20) 10*6/uL Hgb (12.0-15.0) g/dL Hct (37.2-46.3) % MCV (80.0-97.0) fL MCH (27.0-32.0) pg MCHC (32.0-37.0) g/dL Plt Count (140-440) 10*3/uL MPV (9.5-12.2) fL Immature Gran % (Auto) % Neutrophils % % Lymphocytes % % Monocytes % % Eosinophils % % Basophils % % Immature Gran # (0.00-0.04) 10*3/uL Neutrophils # (1.80-7.70) 10*3/uL Lymphocytes # (0.90-5.00) 10*3/uL Monocytes # (0.20-1.00) 10*3/uL Eosinophils # (0.04-0.35) 10*3/uL Basophils # (0.00-0.10) 10*3/uL D-Dimer 0.51 (<0.60) mg/L FEU Sodium (137-145) mmol/L Potassium (3.5-5.1) mmol/L Chloride (98-107) mmol/L Carbon Dioxide (22-30) mmol/L Anion Gap mmol/L BUN (7-17) mg/dL Creatinine (0.52-1.04) mg/dL Est GFR (CKD-EPI)AfAm (>60 ml/min/1.73 sqM) Est GFR (CKD-EPI)NonAf (>60 ml/min/1.73 sqM) Glucose (74-99) mg/dL Plasma Lactic Acid Ajay 3.3 H* (0.7-2.0) mmol/L Calcium (8.4-10.2) mg/dL Magnesium (1.6-2.3) mg/dL Total Bilirubin (0.2-1.3) mg/dL AST (14-36) U/L ALT (4-34) U/L Alkaline Phosphatase (38-126) U/L Troponin I <0.012 (0.000-0.034) ng/mL Total Protein (6.3-8.2) g/dL Albumin (3.5-5.0) g/dL Influenza Type A (PCR) (Not Detectd) Influenza Type B (PCR) (Not Detectd) RSV (PCR) (Not Detectd) SARS-CoV-2 (PCR) (Not Detectd) Disposition Clinical Impression: Acute bronchitis Disposition: HOME SELF-CARE Instructions (If sedation given, give patient instructions): Acute Bronchitis (ED) Is patient prescribed a controlled substance at d/c from ED?: No Referrals: Solange Godinez MD [Primary Care Provider] - 1-2 days Time of Disposition: 14:08
[2024-08-15 12:30] LABS: Basophils # (A) 0.08 10*3/uL (0.00-0.10); Basophils % (A) 1.1 %; Eosinophils # (A) 0.22 10*3/uL (0.04-0.35); Eosinophils % (A) 2.9 %; HCT 36.9 % (37.2-46.3); HGB 12.8 g/dL (12.0-15.0); Lymphocytes # (A) 1.41 10*3/uL (0.90-5.00); Lymphocytes % (A) 18.8 %; MCH 31.3 pg (27.0-32.0); MCHC 34.7 g/dL (32.0-37.0); MCV 90.2 fL (80.0-97.0); Mean Platelet Volume 9.1 fL (9.5-12.2); Neutrophils # (A) 5.19 10*3/uL (1.80-7.70); Neutrophils % (A) 68.9 %; Platelet Count 314 10*3/uL (140-440); RBC 4.09 10*6/uL (4.10-5.20); RDW 12.2 % (11.5-14.5); WBC 7.52 10*3/uL (4.50-10.00)
[2024-08-15] MEDS: ACETAMINOPHEN TAB 500 MG TAB PO STA (12:36)
[2024-08-15 12:47] LABS: ALT 16 U/L (4-34); AST 22 U/L (14-36); African American GFR (CKD) >90 (>60 ml/min/1.73 sqM); Albumin 4.2 g/dL (3.5-5.0); Alkaline Phosphatase 76 U/L (38-126); Anion Gap 9 mmol/L; Blood Urea Nitrogen 8 mg/dL (7-17); Calcium 9.2 mg/dL (8.4-10.2); Carbon Dioxide 30 mmol/L (22-30); Chloride 99 mmol/L (98-107); Glucose 132 mg/dL (74-99); Magnesium 1.9 mg/dL (1.6-2.3); Non-African American GFR(CKD) >90 (>60 ml/min/1.73 sqM); Potassium 3.9 mmol/L (3.5-5.1); Sodium 138 mmol/L (137-145); Total Bilirubin 0.5 mg/dL (0.2-1.3); Total Protein 6.7 g/dL (6.3-8.2)
[2024-08-15 12:51] LABS: Influenza A Not Detected (Not Detectd); Influenza B Not Detected (Not Detectd); RSV Not Detected (Not Detectd)
--- NOTE | 2024-08-15 12:59 | XR ---
EXAMINATION TYPE: XR chest 2V DATE OF EXAM: 08/15/2024 12:30 PM COMPARISON: 11/25/2023 CLINICAL INDICATION: Female, 58 years old with history of difficulty breathing, shortness breath, TECHNIQUE: AP and lateral views FINDINGS: Heart normal size. Aorta and pulmonary vasculature within normal limits. Hazy lower lung densities re lated to overlying soft tissue. No consolidation or pleural effusion. IMPRESSION: No acute process seen. [facility], , 08/15/2024 12:57 PM
[2024-08-15] MEDS: HYDROmorphone 0.5 MG/0.5 ML SYRINGE IVP STA (13:22)
[2024-08-15 14:26] VITALS: BP 149/90; PULSE 85; TEMP 98.3
== END 2024-08-15 14:26 | disposition home or self-care (01) ==
LOC: EC 11:15
DX: J20.9 Acute bronchitis, unspecified (principal); F17.290 Nicotine dependence, other tobacco product, uncomplicated; Z91.018 Allergy to other foods; Z88.1 Allergy status to other antibiotic agents; Z88.8 Allergy status to other drugs, medicaments and biological substances
CPT/HCPCS: 36415; 93005; 85379; 80053; 83605; 83735; 84484; 85025; 87636; 71046; 99285; 96374; J1171

== ENCOUNTER 2024-10-23 19:52 | Outpatient (CLI) | payer MEDICARE ==
--- NOTE | 2024-11-14 22:43 | P.PCN ---
Date of Procedure: 10/23/24 Operative Findings: Polysomnography report Date of service is 10/23/2024 History This is a 59-year-old female patient with significant hypersomnia and sleepiness. The patient is currently on a combination of modafinil 200 mg p.o. daily and Adderall 20 mg p.o. twice daily. The patient has been gradually getting worse and she has become more somnolent and sleepy despite being on therapy. Since original study back in 2017, the patient has gained around 50 pounds and she has developed some features of obstructive sleep apnea. Based on that, screening polysomnography was ordered. Recent MRI of the head and the neck was negative. Blood work has been within normal limits. She has history of depression maintained on a combination of Abilify and Lexapro. She is also known to have COPD, chronic pain maintained on Hysingla and [place]. She has history of depression and acid reflux. Pertinent physical findings The patient's body mass index is 31 with a weight of 175 pounds Technical description The patient was studied using a standard complex polysomnography protocol that included recording of the Lead II EKG, Central, occipital and frontal EEG, right and left outer canthus EOG, submental EMG, right and left anterior tibialis EMG, respiratory airflow by thermocouple and or pressure/flow transducer, respiratory efforts by abdominal and thoracic PVDF belts, oxygen saturation by cable oximetry. Position by observation synchronized the PSG. Equipment used: [employer]. Sleep architecture The total recording duration was 368.5 minutes. The total sleep time was 306.5 minutes. The overall sleep efficiency was 83.2%. The latency to sleep onset was 38 minutes. The latency to REM sleep was 314 minutes. The sleep architecture was 5.9% stage I, 91.4% stage II, 0% stage III and IV 0.9% REM sleep. The total arousal index was 5.5. The wake after sleep onset time was 24 minutes. Respiratory summary The respiratory analysis demonstrated total of 33 obstructive events of which 0 were obstructive apneas, 0 mixed apneas and 33 were obstructive hypopneas. The resulting AHI was 6.5 consistent with mild obstructive sleep apnea. The patient also had a single central apnea with a central apnea index of 0.2. Oxygenation analysis The patient was able to maintain oxygen saturation above 90% throughout the sleep study. The minimum pulse ox of 87%. The baseline pulse ox while awake was 94%. Cardiac summary Rhythm was sinus with an average heart rate of 70 and a minimum heart rate of 67 and the maximal heart rate of 73 Periodic limb movements None Arousal summary There was a total of 28 arousals with an index of 5.5. The respiratory arousal index was 1.8 Assessment Mild obstructive sleep apnea with an AHI of 6.5. No associated nocturnal oxygen desaturation. No significant sleep fragmentation and the respiratory arousal index was calculated to be has 1.8. Abnormal sleep architecture with over representation of stage II sleep and diminished delta wave and REM, could be medication induced. Adequate sleep efficiency of 83.2% Chronic hypersomnia, maintained on a combination of Adderall and modafinil, out of proportion to the severity of sleep apnea. COPD Chronic depression maintained on a combination of Lexapro and Abilify Chronic pain maintain a combination of a Hys[place] and [place] Plan Continue modafinil and Adderall Encouraged weight loss No need for CPAP therapy. The patient sleep apnea is mild and should respond to conservative measures. Treating sleep apnea may not improve her daytime symptoms as this is a very mild disease and probably not contributing to the patient's chronic hypersomnia and sleepiness. Continue medical treatment. Will continue to follow.
== END 2024-10-24 04:45 | disposition home or self-care (01) ==
LOC: 3 N SLEEP 19:52
PROVIDERS: ATTEND Internal Medicine Critical Care Medicine
CPT/HCPCS: 95810